=== PATIENT | male | born 1960 | race African-American/Black ===

== ENCOUNTER 2017-10-18 17:01 | Inpatient (IN) | payer OTHER ==
[~2017-10-18] VITALS: Ht 185.4 cm; Wt 89.4 kg
[2017-10-18 18:25] LABS: BASOPHILS % 0.4 % (0.0-1.0); EOSINOPHILS # (AUTO) 0.1 (0.0-0.4); EOSINOPHILS % 1.4 % (0.0-6.0); HEMATOCRIT 22.8 % (38.2-49.6); LYMPHOCYTES # (AUTO) 0.3 (1.0-3.2); LYMPHOCYTES % 3.4 % (18.0-39.1); MEAN CORPUSCULAR HEMOGLOBIN 27.5 pg (28-32); MEAN CORPUSCULAR HGB CONC 28.5 g/dL (31-35); MEAN CORPUSCULAR VOLUME 96.6 fL (81-99); MONOCYTES # (AUTO) 1.1 (0.2-0.8); MONOCYTES % 14.7 % (4.4-11.3); NEUTROPHILS # (AUTO) 5.8 (2.1-6.9); NEUTROPHILS % 79.8 % (38.7-80.0); PLATELET COUNT 228 x10e3/uL (140-360); RED BLOOD COUNT 2.36 x10e6/uL (4.3-5.7); RED CELL DISTRIBUTION WIDTH 16.8 % (11.7-14.4)
--- NOTE | 2017-10-18 18:32 | Diagnostic Imaging Report ---
EXAMINATION: CHEST SINGLE (PORTABLE) INDICATION: \S\ERMD ORDER \[id number] \S\[id number] \S\Y COMPARISON: None FINDINGS: AP view TUBES and LINES: Left-sided chest port with tip overlying the cavoatrial junction. LUNGS: Lungs are well inflated. Bilateral pulmonary edema. More confluent consolidation in the right upper lobe. PLEURA: Small right pleural effusion. No pneumothorax. HEART AND MEDIASTINUM: Moderate enlargement of the cardiac silhouette. Prominent right hilar. BONES AND SOFT TISSUES: No acute osseous lesion. Elevation of the right hemidiaphragm. UPPER ABDOMEN: No free air under the diaphragm. IMPRESSION: Bilateral pulmonary edema. More confluent right upper lobe consolidation may be due to more loculated alveolar edema versus superimposed pneumonia/mass. Prominent right hilar region due to lymphadenopathy. Recommend follow-up chest radiograph after treatment. If finding persists, then consider CT chest with IV contrast for further evaluation. Signed by: Dr. Josselyn Owens M.D. on 10/18/2017 6:29 PM
[2017-10-18 18:38] LABS: HEMOGLOBIN 6.5 g/dL (14.0-18.0)
[2017-10-18 18:50] LABS: INR 1.39
[2017-10-18 18:51] LABS: PARTIAL THROMBOPLASTIN TIME 38.8 seconds (23.8-35.5)
[2017-10-18 18:58] LABS: ALBUMIN 2.5 g/dL (3.5-5.0); ALBUMIN/GLOBULIN RATIO 0.6 (0.8-2.0); ANION GAP 17.7 mmol/L (8-16); CALCIUM 10.3 mg/dL (8.4-10.2); CREATININE, SERUM 4.07 mg/dL (0.72-1.25); POTASSIUM 3.7 mmol/L (3.5-5.1)
[2017-10-18] MEDS ORDERED: FUROSEMIDE INJ 10 MG/ML 4 ML VIAL IV ONE (19:45)
[2017-10-18 20:12] LABS: EOSINOPHILS % (MANUAL) 2 % (0-7); LYMPHOCYTES % (MANUAL) 4 % (19-48); MONOCYTES % (MANUAL) 9 % (3.4-9.0); NEUTROPHILS % (MANUAL) 85 % (40-74)
[2017-10-18 20:15] LABS: HYPOCHROMASIA MODERATE
[2017-10-18 20:16] LABS: POIKILOCYTOSIS SLIGHT
[2017-10-18 20:17] LABS: PLATELET ESTIMATE ADEQUATE; PLATELET MORPHOLOGY COMMENT FEW LARGE
[2017-10-18] MEDS ORDERED: FUROSEMIDE INJ 10 MG/ML 2 ML VIAL IV SCH (20:30)
[2017-10-18] MEDS ORDERED: SODIUM CHLORIDE 0.9% 250ML 250 ML IV ONE (20:30)
--- NOTE | 2017-10-18 21:13 | Diagnostic Imaging Report ---
EXAM: CT CHEST WO INDICATION: Shortness of breath COMPARISON: None TECHNIQUE: Multidetector CT scanning of the chest was performed. Coronal and sagittal multiplanar reformations were obtained. Dose modulation, iterative reconstruction, and/or weight based adjustment of the mA/kV was utilized to reduce the radiation dose to as low as reasonably achievable. Routine protocol performed. IV Contrast: None CTDIvol has been reviewed. It is below the limits set by the Radiation Protocol Committee (RPC). FINDINGS: LUNGS AND AIRWAYS: The trachea and major bronchi are unremarkable. Innumerable pulmonary nodules and masses throughout the bilateral lungs measuring up to 3 cm in the right upper lung. Additional superimposed consolidations predominantly in the right middle lobe and lung bases could represent superimposed pneumonia. Bilateral areas of irregular septal thickening most likely represents lymphangitic spread. PLEURA: Small amount of loculated fluid in the right middle and medial right upper lobe. HEART, MEDIASTINUM, VESSELS: Mild cardiac enlargement. Small pericardial effusion. No thoracic aortic aneurysm. Coronary artery calcifications. Bulky lymphadenopathy in the upper mediastinum, bilateral nova and subcarinal locations measuring up to 2.4 cm in short diameter. A left internal jugular central line terminates at the atriocaval junction. UPPER ABDOMEN: Extensive right diaphragmatic lymphadenopathy measuring up to 5 cm. MUSCULOSKELETAL: Large lytic lesion involving the manubrium associated with a 6.6 x 7.3 x 5.5 cm soft tissue mass. Additional lytic lesion associated with a soft tissue mass involving the anterior right first rib measuring up to 2.5 cm. Pathologic compression fracture with vertebral planum of T3. Multiple additional small lytic lesions throughout the thoracic spine. Partially visualized enlarged lytic lesion with soft tissue component of T11/T12 with partially visualized vertebroplasty changes at T12. Lytic lesions of the right scapula. IMPRESSION: Extensive metastatic disease, that would be consistent with provided history of renal cell carcinoma. Findings include: * Innumerable bilateral pulmonary nodules and masses. Irregular septal thickening bilaterally consistent with lymphangitic spread. Scattered ground glass opacities and small consolidations could represent metastatic disease or superimposed pneumonia. * Loculated, likely malignant, small effusion right middle lobe and medial aspect of the right upper lobe * Mediastinal, bilateral hilar and right diaphragmatic lymphadenopathy * Numerous lytic bone lesions throughout the ribs, spine and right scapula including some with large soft tissue components such as the manubrium and T11/T12. Pathologic fracture/vertebral clot at T3. Signed by: Dr. Sonya Byrne M.D. on 10/18/2017 9:10 PM
[2017-10-18] MEDS: ONDANSETRON HCL INJ 2 MG/ML VIAL IV PRN (23:12)
[2017-10-18] MEDS: MORPHINE SULFATE 2 MG/ML SYR IV PRN (23:12)
[2017-10-19] VITALS (11 sets, daily range): BP systolic 109–144; BP diastolic 56–94
[2017-10-19] MEDS ORDERED: ASPIR 8181 MG PO (01:26)
[2017-10-19] MEDS ORDERED: LACTULOSE20 GM/30 M PO (01:26)
[2017-10-19] MEDS ORDERED: RENVELA0.8 GM PO (01:26)
[2017-10-19] MEDS ORDERED: PANTOPRAZOLE SO40 MG PO (01:26)
[2017-10-19] MEDS ORDERED: SENSIPAR30 MG PO (01:26)
[2017-10-19] MEDS ORDERED: DIPHENHYDRAMINE25 M1 PO (01:26)
[2017-10-19] MEDS ORDERED: METOPROLOL TART50 MG PO (01:26)
[2017-10-19] MEDS ORDERED: ACETAMINOPHEN325 M1 PO (01:26)
[2017-10-19] MEDS ORDERED: COREG3.125 MG PO (01:26)
[2017-10-19] MEDS ORDERED: NORCO 7.5-3251 EACH PO (01:26)
[2017-10-19] MEDS ORDERED: CYMBALTA30 MG PO (01:26)
[2017-10-19] MEDS ORDERED: CLONIDINE HCL0.1 MG PO (01:26)
[2017-10-19] MEDS ORDERED: VOTRIENT200 MG PO (01:26)
[2017-10-19] MEDS ORDERED: IPRAT-ALBUT 0.5-3 ML INH (01:26)
[2017-10-19] MEDS ORDERED: PROAIR HFA INH8.5 GM INH (01:26)
[2017-10-19] MEDS ORDERED: ZOFRAN ODT4 MG PO (01:26)
[2017-10-19] MEDS ORDERED: SENNA LAX8.6 MG PO (01:26)
[2017-10-19] MEDS ORDERED: HYDRALAZINE HCL25 MG PO (01:26)
[2017-10-19] MEDS: MORPHINE SULFATE 2 MG/ML SYR IV PRN ×3 (03:40→21:18)
[2017-10-19] MEDS: ONDANSETRON HCL INJ 2 MG/ML VIAL IV PRN (03:40)
[2017-10-19 07:10] LABS: ANION GAP 15.8 mmol/L (8-16); CALCIUM 10.6 mg/dL (8.4-10.2); CREATININE, SERUM 4.61 mg/dL (0.72-1.25); MAGNESIUM 1.8 MG/DL (1.3-2.1); POTASSIUM 3.8 mmol/L (3.5-5.1)
[2017-10-19 07:30] LABS: BASOPHILS % 0.4 % (0.0-1.0); EOSINOPHILS # (AUTO) 0.1 (0.0-0.4); EOSINOPHILS % 1.8 % (0.0-6.0); HEMATOCRIT 25.4 % (38.2-49.6); HEMOGLOBIN 7.1 g/dL (14.0-18.0); LYMPHOCYTES # (AUTO) 0.3 (1.0-3.2); LYMPHOCYTES % 4.3 % (18.0-39.1); MEAN CORPUSCULAR HEMOGLOBIN 27.4 pg (28-32); MEAN CORPUSCULAR VOLUME 98.1 fL (81-99); MONOCYTES # (AUTO) 1.5 (0.2-0.8); MONOCYTES % 20.1 % (4.4-11.3); NEUTROPHILS # (AUTO) 5.3 (2.1-6.9); PLATELET COUNT 236 x10e3/uL (140-360); RED BLOOD COUNT 2.59 x10e6/uL (4.3-5.7); RED CELL DISTRIBUTION WIDTH 16.8 % (11.7-14.4)
[2017-10-19] MEDS ORDERED: ACETAMINOPHEN 325 MG TAB PO PRN (10:00)
[2017-10-19] MEDS ORDERED: CLONIDINE HCL 0.1 MG TAB PO PRN (10:00)
[2017-10-19 10:01] LABS: LYMPHOCYTES % (MANUAL) 2 % (19-48); MONOCYTES % (MANUAL) 23 % (3.4-9.0); NEUTROPHILS % (MANUAL) 75 % (40-74)
[2017-10-19 10:02] LABS: PLATELET ESTIMATE ADEQUATE; PLATELET MORPHOLOGY COMMENT NORMAL; RBC MORPHOLOGY COMMENT NORMAL
[2017-10-19] MEDS: FUROSEMIDE INJ 10 MG/ML 4 ML VIAL IV SCH ×2 (10:15→16:33)
[2017-10-19] MEDS: ALBUTEROL/IPRATROPIUM 3 ML NEB INH SCH ×2 (11:00→19:50)
[2017-10-19] MEDS ORDERED: SODIUM CHLORIDE 0.9% 1000ML 1,000 ML ONE (11:01)
[2017-10-19] MEDS: SEVELAMER CARBONATE 800 MG TAB PO SCH ×2 (12:00→16:33)
[2017-10-19] MEDS: DIPHENHYDRAMINE HCL 25 MG CAP PO PRN (12:45)
[2017-10-19] MEDS ORDERED: FAMOTIDINE 20 MG TAB PO SCH (16:30)
[2017-10-19 16:33] LABS: ABG HCO3 31 mmol/L (23-28); ABG PCO2 61 mmHg (41-51); ABG PH 7.32 (7.31-7.41); ABG PO2 88 mmHg (80-105)
[2017-10-19] MEDS: LACTULOSE SYRUP 20 GM/30 ML UDC PO SCH (16:33)
[2017-10-19] MEDS ORDERED: HYDRALAZINE HCL 25 MG TAB PO SCH (17:00)
--- NOTE | 2017-10-19 17:55 | Consultation ---
DATE OF CONSULTATION: October 19, 2017 PULMONARY CONSULTATION A patient of Dr. Reddy. An unfortunate 57-year-old gentleman admitted with chest pressure and shortness of breath. History of sleep apnea, history of metastatic renal cell carcinoma on . History of hypertension, hyperparathyroidism, gastroesophageal reflux, end-stage renal disease, COPD, congestive heart failure. Has done dialysis for over 20 years related to his malignant hypertension. According to the record, there is a history of cocaine use and opiate dependence. Hospice apparently has been discussed with the patient and to date is declined. He is a retired . Smoker. Alcohol in the past. PHYSICAL EXAMINATION GENERAL: A well-developed black male looking somewhat older than his . He appears chronically ill, on dialysis. He is sleepy. VITAL SIGNS: Temperature 98.2, pulse 89, blood pressure 132/81. LUNGS: Bilateral rhonchi. HEART: Regular rhythm. ABDOMEN: Nontender. EXTREMITIES: Nonedematous. AV fistula left arm. He is currently undergoing dialysis. PLAN: Resume CPAP which he says is at 5 at home. Continue therapy of carcinoma of the kidney with widespread metastasis to lung and bone. Prognosis appears grave. Hyperkalemia of second . Will defer therapy to the renal service. Check ionized . Thank you for this kind referral. Job#: [id number] EV
[2017-10-19 18:31] LABS: CREATINE KINASE MB 2.4 ng/mL (0-5.0)
--- NOTE | 2017-10-19 19:53 | Consultation ---
DATE OF CONSULTATION: October 19, 2017 NEPHROLOGY CONSULTATION PRIMARY REFERRING PHYSICIAN: Dr. Reddy. HISTORY OF PRESENT ILLNESS: The patient is a 57-year-old man who has a history of end-stage renal disease, hypertension, renal cell carcinoma and metastasis, as well as diabetes and diastolic heart failure. He presents for further evaluation of weakness. I am asked to provide dialysis support and manage ESRD issues. The patient is seen at this facility with ongoing hemodialysis. I reviewed the assessment and plan with the patient and the dialysis nursing staff. The patient receives dialysis on a Friday/Friday/Friday schedule with his last treatment being Friday, 48 hours ago. On admission he was noted to be anemic, requiring a blood transfusion with labs as noted below. He is hemodynamically stable, awake, alert, tired-appearing and in no distress presently. REVIEW OF SYSTEMS: Notable for dyspnea, weakness. He denies headaches, angina, palpitations, epistaxis, hemoptysis, cough, abdominal pain, flank pain, worsened lower extremity edema, diarrhea, melanic stools, bright red blood per rectum, gross hematuria. ALLERGIES: CODEINE AND TRAMADOL. LABS AT THIS TIME: Sodium 136, potassium 3.8, bicarb 27, BUN 33, creatinine 4.6, glucose 81, calcium 10.6, magnesium 1.8. B-type natriuretic peptide 765. White count on October 18, 2017, was 7.2. Initial hemoglobin 6.5, repeat 7.1. Platelets 288. CHEST X-RAY: On October 18, 2017, reveals bilateral pulmonary edema. More confluent right upper lobe consolidation. Prominent right hilar region due to lymphadenopathy. This is by formal report. CHEST COMPUTED TOMOGRAPHY: On October 18, 2017, without contrast reveals extensive metastatic disease consistent with provided history of renal cell carcinoma. Innumerable bilateral pulmonary nodules and masses. Irregular septal thickening consistent with lymphangitic spread. This is likely malignant small effusion right middle lobe and medial aspect of right upper lobe. Mediastinal bilateral hilar and right diaphragmatic lymphadenopathy. Numerous lytic bone lesions throughout the ribs, spine and right scapula. Pathologic fracture vertebral at T3. This is by formal report. PAST MEDICAL HISTORY: COPD, diabetes, diastolic heart failure, ESRD, lumbar compression fractures, neuropathy, obesity, obstructive sleep apnea. Renal cell carcinoma, metastatic. PAST SURGICAL HISTORY: Left AV shunt, nephrectomy, total knee arthroplasty, vertebroplasty lumbar spine. SOCIAL HISTORY: Single. No tobacco. Positive for cocaine noted. Alcohol noted and marijuana use as by EMR review. PHYSICAL EXAMINATION GENERAL: Patient is awake, tired-appearing. VITAL SIGNS: Afebrile 97.1, blood pressure 125/61. HEAD AND NECK: Atraumatic, normocephalic. Anicteric sclera. Moist oral mucosa. No skin or mucosal lesions. Neck is supple. No JVP appreciated. LUNGS: Reveal decreased breath sounds, no overt wheezes. CARDIAC: Regular rate. No S3. No rubs. ABDOMEN: Soft, nontender, nondistended. No guarding or rebound. EXTREMITIES: Left upper extremity positive AV access in use at this time. Lower extremities without overt edema, lesions. ASSESSMENT 1. End-stage renal disease. 2. Increased, expanded volume status. 3. Anemia. 4. Hemodynamically stable. PLAN 1. Dialysis today for metabolic clearance and volume control. Prescription is reviewed with the nursing staff as follows: F170 for 3 hours, sodium 140, potassium 3.0, bicarb 35, calcium 2.0. Ultrafiltration 3 liters as tolerated. 2. No heparin. No waste of prime. Blood flow 400 mL per minute. Dialysate flow rate 600 to 700 mL per minute. IV saline and Mannitol p.r.n. systolic less than 105 mmHg. 3. Transfuse packed RBC with ongoing hemodialysis as scheduled. 4. Serial renal indices. 5. Protect left arm. 6. Dose meds with creatinine clearance less than 10 to 12 mL per minute. 7. Plan dialysis tomorrow on October 20, 2017, for Friday/Friday/Friday schedule. 8. Renal diet with 1.2 liter fluid restriction. Will make other recommendations as per his clinical course and data. Job#: [id number] EV
[2017-10-19] MEDS ORDERED: CARVEDILOL 3.125 MG TAB PO SCH (21:00)
[2017-10-20] MEDS: ALBUTEROL/IPRATROPIUM 3 ML NEB INH SCH ×4 (00:40→19:10)
[2017-10-20 05:08] LABS: BASOPHILS % 0.3 % (0.0-1.0); EOSINOPHILS # (AUTO) 0.1 (0.0-0.4); EOSINOPHILS % 1.4 % (0.0-6.0); HEMATOCRIT 27.4 % (38.2-49.6); HEMOGLOBIN 7.9 g/dL (14.0-18.0); LYMPHOCYTES # (AUTO) 0.2 (1.0-3.2); LYMPHOCYTES % 3.1 % (18.0-39.1); MEAN CORPUSCULAR HEMOGLOBIN 27.6 pg (28-32); MEAN CORPUSCULAR HGB CONC 28.8 g/dL (31-35); MEAN CORPUSCULAR VOLUME 95.8 fL (81-99); MONOCYTES # (AUTO) 1.2 (0.2-0.8); MONOCYTES % 15.7 % (4.4-11.3); NEUTROPHILS # (AUTO) 5.8 (2.1-6.9); NEUTROPHILS % 79.1 % (38.7-80.0); PLATELET COUNT 275 x10e3/uL (140-360); RED BLOOD COUNT 2.86 x10e6/uL (4.3-5.7); RED CELL DISTRIBUTION WIDTH 16.7 % (11.7-14.4)
[2017-10-20 05:33] LABS: ANION GAP 17.1 mmol/L (8-16); CALCIUM 10.4 mg/dL (8.4-10.2); CREATININE, SERUM 4.09 mg/dL (0.72-1.25); MAGNESIUM 1.7 MG/DL (1.3-2.1); POTASSIUM 4.1 mmol/L (3.5-5.1)
[2017-10-20 06:05] LABS: % IRON SATURATION 11 % (15-50); IRON 16 ug/dL (65-175); TOTAL IRON BINDING CAPACITY 147 ug/dL (261-478); TRANSFERRIN 105 mg/dL (174-364)
[2017-10-20 06:17] LABS: FERRITIN > 2000.00 ng/mL (21.81-274.66)
[2017-10-20 06:30] LABS: FOLATE 12.9 ng/mL (7.0-15.4)
[2017-10-20 07:15] VITALS: BP 149/73
[2017-10-20] MEDS: MORPHINE SULFATE 2 MG/ML SYR IV PRN (07:45)
[2017-10-20] MEDS: PANTOPRAZOLE SOD 40 MG TABEC PO SCH (07:48)
[2017-10-20] MEDS: SEVELAMER CARBONATE 800 MG TAB PO SCH ×3 (08:13→17:26)
[2017-10-20 08:16] VITALS: BP 149/73
[2017-10-20] MEDS ORDERED: METHYLPREDNISOLONE SOD SUCC 40 MG/ML VIAL IV SCH (09:00)
[2017-10-20] MEDS: SENNOSIDES 8.6 MG TAB PO SCH (09:00)
[2017-10-20] MEDS: DULOXETINE HCL 30 MG DELAYED RELEASE PO SCH (09:00)
[2017-10-20] MEDS: LACTULOSE SYRUP 20 GM/30 ML UDC PO SCH ×2 (09:00→17:00)
[2017-10-20] MEDS: METOPROLOL TARTRATE 50 MG TAB PO SCH (09:00)
[2017-10-20] MEDS: FUROSEMIDE INJ 10 MG/ML 4 ML VIAL IV SCH ×2 (09:01→17:26)
[2017-10-20 12:14] VITALS: BP 126/68
[2017-10-20] MEDS: EPOETIN ALFA 10000 UNIT/ML VIAL SC SCH (15:57)
[2017-10-20] MEDS: CINACALCET 30 MG TAB PO SCH (15:57)
[2017-10-20] MEDS: ASPIRIN 81 MG CHEW TAB PO SCH (15:57)
[2017-10-20 16:01] VITALS: BP 123/62
[2017-10-20] MEDS ORDERED: CEFTRIAXONE SOD 1 GM VIAL IM ONE (17:00)
[2017-10-20] MEDS: MORPHINE SULFATE INJ 4 MG/ML INJ IV PRN (17:20)
[2017-10-20] MEDS: DOXYCYCLINE HYCLATE TABLET 100 MG TAB PO SCH (17:26)
[2017-10-20 19:45] VITALS: BP 139/87
[2017-10-20 20:00] VITALS: BP 139/87
[2017-10-20] MEDS: HYDROCODONE/APAP 7.5MG-325MG 1 EA TAB PO PRN (20:37)
[2017-10-20] MEDS: METHYLPREDNISOLONE SOD SUCC 40 MG/ML VIAL IV SCH (20:37)
[2017-10-21] VITALS (8 sets, daily range): BP systolic 123–150; BP diastolic 65–77
[2017-10-21] MEDS: MORPHINE SULFATE INJ 4 MG/ML INJ IV PRN ×5 (00:05→22:03)
[2017-10-21] MEDS: ALBUTEROL/IPRATROPIUM 3 ML NEB INH SCH ×4 (01:40→18:45)
[2017-10-21] MEDS: HYDROCODONE/APAP 7.5MG-325MG 1 EA TAB PO PRN (03:15)
[2017-10-21] MEDS: DIPHENHYDRAMINE HCL 25 MG CAP PO PRN (03:22)
[2017-10-21 04:08] LABS: BASOPHILS % 0.1 % (0.0-1.0); EOSINOPHILS % 0.1 % (0.0-6.0); HEMATOCRIT 25.8 % (38.2-49.6); HEMOGLOBIN 7.5 g/dL (14.0-18.0); LYMPHOCYTES # (AUTO) 0.2 (1.0-3.2); LYMPHOCYTES % 2.1 % (18.0-39.1); MEAN CORPUSCULAR HEMOGLOBIN 27.7 pg (28-32); MEAN CORPUSCULAR HGB CONC 29.1 g/dL (31-35); MEAN CORPUSCULAR VOLUME 95.2 fL (81-99); MONOCYTES # (AUTO) 0.7 (0.2-0.8); MONOCYTES % 8.4 % (4.4-11.3); NEUTROPHILS # (AUTO) 7.1 (2.1-6.9); NEUTROPHILS % 88.8 % (38.7-80.0); PLATELET COUNT 228 x10e3/uL (140-360); RED BLOOD COUNT 2.71 x10e6/uL (4.3-5.7); RED CELL DISTRIBUTION WIDTH 16.5 % (11.7-14.4)
[2017-10-21 04:26] LABS: ANION GAP 16.2 mmol/L (8-16); CALCIUM 9.9 mg/dL (8.4-10.2); CREATININE, SERUM 4.06 mg/dL (0.72-1.25); POTASSIUM 4.2 mmol/L (3.5-5.1)
[2017-10-21 04:46] LABS: MAGNESIUM 1.9 MG/DL (1.3-2.1)
[2017-10-21] MEDS: DOXYCYCLINE HYCLATE TABLET 100 MG TAB PO SCH ×3 (05:41→21:58)
[2017-10-21] MEDS: PANTOPRAZOLE SOD 40 MG TABEC PO SCH (07:30)
[2017-10-21] MEDS: ONDANSETRON HCL INJ 2 MG/ML VIAL IV PRN ×2 (08:12→22:27)
[2017-10-21] MEDS: FUROSEMIDE INJ 10 MG/ML 4 ML VIAL IV SCH ×2 (08:12→17:01)
[2017-10-21] MEDS: METHYLPREDNISOLONE SOD SUCC 40 MG/ML VIAL IV SCH (08:12)
[2017-10-21] MEDS: METOPROLOL TARTRATE 50 MG TAB PO SCH (09:00)
[2017-10-21] MEDS: SENNOSIDES 8.6 MG TAB PO SCH (09:00)
[2017-10-21] MEDS: DULOXETINE HCL 30 MG DELAYED RELEASE PO SCH (09:00)
[2017-10-21] MEDS: ASPIRIN 81 MG CHEW TAB PO SCH (09:00)
[2017-10-21] MEDS: LACTULOSE SYRUP 20 GM/30 ML UDC PO SCH ×2 (09:00→17:00)
[2017-10-21] MEDS: SEVELAMER CARBONATE 800 MG TAB PO SCH ×3 (09:58→17:39)
[2017-10-21] MEDS: CINACALCET 30 MG TAB PO SCH (09:59)
[2017-10-21] MEDS ORDERED: BISACODYL 10 MG SUPP PR NR (10:30)
[2017-10-21] MEDS ORDERED: DOCUSATE SODIUM 100 MG CAP PO SCH (11:00)
[2017-10-21] MEDS: GUAIFENESIN 600 MG TAB PO SCH ×2 (12:00→17:39)
[2017-10-21] MEDS: DOCUSATE SODIUM 100 MG CAP PO SCH (17:01)
[2017-10-21] MEDS: DICLOFENAC SOD 1% GEL 100 GM TUBE TP SCH ×2 (17:49→21:58)
[2017-10-22] VITALS (7 sets, daily range): BP systolic 109–151; BP diastolic 56–78
[2017-10-22] MEDS: ALBUTEROL/IPRATROPIUM 3 ML NEB INH SCH ×4 (00:35→18:55)
[2017-10-22] MEDS: MORPHINE SULFATE INJ 4 MG/ML INJ IV PRN ×4 (04:35→21:24)
[2017-10-22 05:14] LABS: BASOPHILS % 0.4 % (0.0-1.0); EOSINOPHILS # (AUTO) 0.1 (0.0-0.4); EOSINOPHILS % 0.9 % (0.0-6.0); HEMATOCRIT 27.2 % (38.2-49.6); HEMOGLOBIN 7.8 g/dL (14.0-18.0); LYMPHOCYTES # (AUTO) 0.3 (1.0-3.2); LYMPHOCYTES % 3.6 % (18.0-39.1); MEAN CORPUSCULAR HEMOGLOBIN 27.7 pg (28-32); MEAN CORPUSCULAR HGB CONC 28.7 g/dL (31-35); MEAN CORPUSCULAR VOLUME 96.5 fL (81-99); MONOCYTES # (AUTO) 1.3 (0.2-0.8); MONOCYTES % 15.7 % (4.4-11.3); NEUTROPHILS # (AUTO) 6.4 (2.1-6.9); NEUTROPHILS % 78.9 % (38.7-80.0); PLATELET COUNT 266 x10e3/uL (140-360); RED BLOOD COUNT 2.82 x10e6/uL (4.3-5.7)
[2017-10-22 05:34] LABS: CALCIUM 10.2 mg/dL (8.4-10.2); CREATININE, SERUM 5.09 mg/dL (0.72-1.25); MAGNESIUM 1.6 MG/DL (1.3-2.1)
[2017-10-22] MEDS: GUAIFENESIN 600 MG TAB PO SCH ×4 (06:00→18:00)
[2017-10-22 07:34] LABS: ANISOCYTOSIS SLIGHT; HYPOCHROMASIA SLIGHT; PLATELET ESTIMATE ADEQUATE; PLATELET MORPHOLOGY COMMENT NORMAL; RBC MORPHOLOGY COMMENT NORMAL
--- NOTE | 2017-10-22 08:35 | Diagnostic Imaging Report ---
PROCEDURE: CHEST SINGLE (PORTABLE) COMPARISON: Chest radiograph 10/18/2017, CT chest 10/18/2017. INDICATIONS: FLUID OVERLOAD FINDINGS: Left chest port is unchanged in position. Marginal interval improvement in aeration of the lungs . Multiple bilateral nodular opacities compatible with metastases, unchanged. Enlargement of the cardiac silhouette shown to represent extensive mediastinal metastatic disease, unchanged. Numerous bony lesions are poorly appreciated on plain radiography. CONCLUSION: Aeration of the lungs is slightly improved relative to 10/18/2017 . Extensive intrathoracic metastases seen to better advantage on 10/18/2017 CT chest Dictated by: Noe Oreilly M.D. on 10/22/2017 at 8:42 Electronically approved by: Noe Oreilly M.D. on 10/22/2017 at 8:42
[2017-10-22] MEDS: PANTOPRAZOLE SOD 40 MG TABEC PO SCH (08:40)
[2017-10-22] MEDS: LACTULOSE SYRUP 20 GM/30 ML UDC PO SCH ×2 (09:00→17:00)
[2017-10-22] MEDS: DULOXETINE HCL 30 MG DELAYED RELEASE PO SCH (09:00)
[2017-10-22] MEDS: METOPROLOL TARTRATE 50 MG TAB PO SCH (09:00)
--- NOTE | 2017-10-22 09:30 | Diagnostic Imaging Report ---
PROCEDURE: X-RAY CHEST, TWO VIEWS COMPARISON: The CT chest without contrast 10/18/2017. INDICATIONS: copd, stage 4 lung cancer FINDINGS: Images are only now submitted for interpretation at 0930 hours on 10/22/2017. Left chest port catheter tip projects over the expected region of the superior cavoatrial junction. Innumerable bilateral nodular opacities most notably in the superhilar region of the right lung shown to represent metastatic disease on comparison CT chest. Prominence of the central pulmonary interstitium. Enlarged cardiomediastinal contour due to extensive mediastinal metastatic disease is seen to better advantage on comparison CT. No large pleural effusion or pneumothorax. Osseous metastases are seen to better advantage on comparison CT. CONCLUSION: Diffuse intrathoracic metastases with superimposed pulmonary edema. Dictated by: Noe Oreilly M.D. on 10/22/2017 at 9:37 Electronically approved by: Noe Oreilly M.D. on 10/22/2017 at 9:37
[2017-10-22] MEDS: DICLOFENAC SOD 1% GEL 100 GM TUBE TP SCH ×4 (09:35→21:30)
[2017-10-22] MEDS: DOXYCYCLINE HYCLATE TABLET 100 MG TAB PO SCH ×2 (09:35→21:30)
[2017-10-22] MEDS: CINACALCET 30 MG TAB PO SCH (09:35)
[2017-10-22] MEDS: FUROSEMIDE INJ 10 MG/ML 4 ML VIAL IV SCH ×2 (09:37→17:00)
[2017-10-22] MEDS: ASPIRIN 81 MG CHEW TAB PO SCH (09:37)
[2017-10-22] MEDS: SEVELAMER CARBONATE 800 MG TAB PO SCH ×3 (09:37→18:10)
[2017-10-22] MEDS: DOCUSATE SODIUM 100 MG CAP PO SCH ×2 (09:37→18:10)
[2017-10-22] MEDS ORDERED: ALBUMIN 25% 12.5GM 0.25 GM/ML BTL IV PRN (11:45)
[2017-10-22] MEDS ORDERED: MANNITOL 25% 12.5GM/50 ML VIAL IV PRN (11:45)
[2017-10-22] MEDS ORDERED: SODIUM CHLORIDE 0.9% 1000ML 2,000 ML IV PRN (11:45)
[2017-10-22] MEDS ORDERED: SODIUM CHLORIDE 0.9% 250ML 500 ML IV PRN (11:45)
[2017-10-22] MEDS: EPOETIN ALFA 10000 UNIT/ML VIAL SC SCH (15:00)
[2017-10-22] MEDS: HYDROCODONE/APAP 7.5MG-325MG 1 EA TAB PO PRN (18:05)
[2017-10-23] VITALS: BP 149/76
[2017-10-23] MEDS: MORPHINE SULFATE INJ 4 MG/ML INJ IV PRN ×3 (01:35→11:24)
[2017-10-23] MEDS: ALBUTEROL/IPRATROPIUM 3 ML NEB INH SCH ×2 (01:41→07:18)
[2017-10-23 03:22] LABS: BASOPHILS % 0.3 % (0.0-1.0); EOSINOPHILS # (AUTO) 0.1 (0.0-0.4); HEMATOCRIT 26.9 % (38.2-49.6); HEMOGLOBIN 7.7 g/dL (14.0-18.0); LYMPHOCYTES # (AUTO) 0.3 (1.0-3.2); LYMPHOCYTES % 4.1 % (18.0-39.1); MEAN CORPUSCULAR HEMOGLOBIN 27.5 pg (28-32); MEAN CORPUSCULAR HGB CONC 28.6 g/dL (31-35); MEAN CORPUSCULAR VOLUME 96.1 fL (81-99); MONOCYTES # (AUTO) 0.9 (0.2-0.8); MONOCYTES % 14.8 % (4.4-11.3); NEUTROPHILS % 78.3 % (38.7-80.0); PLATELET COUNT 255 x10e3/uL (140-360); RED CELL DISTRIBUTION WIDTH 15.9 % (11.7-14.4)
[2017-10-23 03:41] LABS: ANION GAP 13.1 mmol/L (8-16); CALCIUM 10.1 mg/dL (8.4-10.2); CREATININE, SERUM 4.14 mg/dL (0.72-1.25); MAGNESIUM 1.6 MG/DL (1.3-2.1); POTASSIUM 4.1 mmol/L (3.5-5.1)
[2017-10-23 04:00] VITALS: BP 126/75
[2017-10-23] MEDS: HYDROCODONE/APAP 7.5MG-325MG 1 EA TAB PO PRN ×2 (04:10→08:00)
[2017-10-23] MEDS: GUAIFENESIN 600 MG TAB PO SCH ×2 (06:00)
[2017-10-23] MEDS: PANTOPRAZOLE SOD 40 MG TABEC PO SCH (06:41)
[2017-10-23 08:00] VITALS: BP 141/77
[2017-10-23] MEDS: SEVELAMER CARBONATE 800 MG TAB PO SCH (08:00)
[2017-10-23] MEDS: FUROSEMIDE INJ 10 MG/ML 4 ML VIAL IV SCH (09:00)
[2017-10-23] MEDS: LACTULOSE SYRUP 20 GM/30 ML UDC PO SCH (09:00)
[2017-10-23] MEDS: DULOXETINE HCL 30 MG DELAYED RELEASE PO SCH (09:00)
[2017-10-23] MEDS: DICLOFENAC SOD 1% GEL 100 GM TUBE TP SCH (09:00)
[2017-10-23] MEDS: METOPROLOL TARTRATE 50 MG TAB PO SCH (09:00)
[2017-10-23] MEDS: DOCUSATE SODIUM 100 MG CAP PO SCH (10:01)
[2017-10-23] MEDS: ASPIRIN 81 MG CHEW TAB PO SCH (10:01)
[2017-10-23] MEDS: CINACALCET 30 MG TAB PO SCH (10:02)
[2017-10-23] MEDS: DOXYCYCLINE HYCLATE TABLET 100 MG TAB PO SCH (10:02)
--- NOTE | 2017-10-23 15:28 | Discharge Summary ---
ADMISSION DIAGNOSES 1. Fluid overload. 2. Anemia of chronic disease. 3. Hypertension. 4. Anxiety and depression. 5. Renal cell carcinoma. 6. End-stage renal disease. 7. Chronic obstructive pulmonary disease. 8. Congestive heart failure. 9. Chest pain. DISCHARGE DIAGNOSES 1. Fluid overload. 2. Anemia of chronic disease. 3. Hypertension. 4. Anxiety and depression. 5. Renal cell carcinoma. 6. End-stage renal disease. 7. Chronic obstructive pulmonary disease. 8. Congestive heart failure. 9. Chest pain. HISTORY: Patient has a history of renal cell carcinoma, hypertension, hyperparathyroidism, GERD, anxiety and depression, end-stage renal disease with dialysis on Friday, Friday and Friday, COPD, CHF, asthma, heart failure, diastolic, obstructive sleep apnea. Surgical history of left upper extremity AV placement, kyphoplasty, right foot surgery, and a TKA. HOSPITAL COURSE: A 57-year-old male complains of left chest pressure that does not radiate that began yesterday. He complains of chronic shortness of breath that also worsened yesterday. Pain is 8/10. No nausea, vomiting or sweating. HPI and history pulled from ER record since the patient refuses to wake up and speak during the assessment. The patient was started on IV Lasix b.i.d. Troponins negative times 2. EKG showed normal sinus rhythm. Dialysis per nephrology. The patient was given 2 PRBCs on admission. Chest x-ray on admission showed bilateral pulmonary edema, right upper lobe consolidation. CT of the chest showed extensive metastatic disease, enumerable bilateral pulmonary nodules and masses, loculated and likely malignant, small effusion of right middle lobe and medial aspect of the right upper lobe. Mediastinal bilateral hilar and right diaphragmatic lymphadenopathy. Numerous lytic bone lesions throughout the ribs, spine and right scapula. Pulmonary was consulted for CPAP. The patient was very agitated and refused to use it. Sputum culture showed gram-negative bacillus and Staph aureus. The patient had dialysis a few times prior to discharge. Chest x-ray prior to admission showed aeration of the lungs is slightly improved. Extensive intrathoracic metastases. The patient was started on doxycycline, Mucinex and Solu-Medrol once he developed a productive cough and congestion. The patient will [facility] back to [facility] with docusate b.i.d., doxycycline for 5 days and Mucinex p.r.n. He will resume home medications. Follow up with primary care in 1-2 weeks. The patient understands discharge instructions and agrees to plan. Vital signs stable. Patient afebrile. Consultants agreed to discharge. DICTATED BY XANDER CASEY NP DWAYNE GOMEZ MD Job#: [id number] MICKIE
[2017-10-24 20:31] VITALS: BP 122/58
--- OUTSIDE RECORDS SUMMARY | 2017-11-20 05:37 | XMS REPORT | Summary of Care ---
Demographics Address [address] [place] [address]- Preferred Language Canadian Marital Status Single Hindu Affiliation Jain Race Ethnic Group Non- Author Author [facility] Organization [facility] Address Unknown Phone Unavailable Encounter [facility]) [id number] Date(s): 03/13/15 - 03/14/15 [facility] [address] [place] [address]- Discharge Disposition: Home Attending Physician: Che Guerra MD Admitting Physician: Che Guerra MD Vital Signs 1 2 3 Most recent to oldest [Reference Range]: 185.42 cm (03/13/15 10:07 PM) 185.42 cm (03/13/15 1:27 PM) Height 98.0 DegF (03/14/15 7:57 AM) 98 DegF (03/13/15 10:06 PM) 98.7 DegF (03/13/15 1:27 PM) Temperature Oral [96.4-99.1 DegF] 163/77 mmHg *HI* (03/14/15 7:57 AM) 142/64 mmHg *HI* (03/14/15 4:59 AM) 123/78 mmHg (03/14/15 2:30 AM) Blood Pressure [90-140/60-90 mmHg] 20 BRMIN (03/14/15 7:57 AM) 23 BRMIN *HI* (03/14/15 4:59 AM) 26 BRMIN *HI* (03/13/15 11:22 PM) Respiratory Rate [14-20 BRMIN] 77 bpm (03/14/15 7:57 AM) 76 bpm (03/14/15 4:59 AM) 86 bpm (03/13/15 11:22 PM) Peripheral Pulse Rate [60-100 bpm] 154.545 kg (03/13/15 10:07 PM) 154.545 kg (03/13/15 1:27 PM) Weight 44.95 m2 (03/13/15 10:07 PM) 44.95 m2 (03/13/15 1:27 PM) Body Mass Index Problem List Condition Effective Dates Status Health Status Informant Apnea(Confirmed) Active DM (diabetes Active mellitus)(Confirmed) ESRD (end stage Active renal disease)(Confirmed) Hypertension(Confirm Active ed) Obesity(Confirmed) Active Allergies, Adverse Reactions, Alerts Substance Reaction Severity Status NKDA Active Medications acetaminophen 650 mg, 2 tab, Route: PO, Drug form: TAB, ONCE, Dosing Weight 154.545, kg, Priority: STAT, Start date: 03/13/15 13:46:00, Stop date: 03/13/15 13:46:00 Notes: Do not exceed 4 gm/day. (Same as: Tylenol) Start Date: 03/13/15 Stop Date: 03/13/15 Status: Completed acetaminophen 650 mg, 2 tab, Route: PO, Drug form: TAB, Q4H, Dosing Weight 154.545, kg, PRN Pain 1-3/Temp > 100.4 F, Start date: 03/13/15 19:37:00, Duration: 30 day, Stop date: 04/12/15 19:36:00 Notes: Do not exceed 4 gm/day. (Same as: Tylenol) Start Date: 03/13/15 Stop Date: 03/14/15 Status: Discontinued acetaminophen-hydrocodone 325 mg-10 mg oral tablet 1 tab, Route: PO, Drug Form: TAB, Q6H, PRN Pain Score 4-6, Start date: 03/14/15 2:21:00, Duration: 30 day, Stop date: 04/13/15 2:20:00 Notes: Do not exceed 4gm/day of acetaminophen. (Same as: [place] 325/10) Start Date: 03/14/15 Stop Date: 03/14/15 Status: Discontinued acetaminophen-hydrocodone 325 mg-10 mg oral tablet 1 tab, PO, PRN, 0 Refill(s) Start Date: 03/13/15 Stop Date: 03/14/15 Status: Discontinued albumin human 25% intravenous solution 12.5 gm, 50 mL, Route: IVPB, Drug form: INJ, PRN, Dosing Weight 154.545, kg, PRN Dialysis, Start date: 03/13/15 19:17:00, Duration: 30 day, Stop date: 19:16:00, (Give up to two doses prn each dialysis) Notes: LOT#: Mfg: WASTE: F/P - Red; E -Red (Same as: Albuminar)"blood product derivative" Start Date: 03/13/15 Stop Date: 03/14/15 Status: Discontinued albuterol 0.083% inhalation solution 15 mg, 18.07 mL, Route: NEB, Drug form: SOLN, ONCE, Dosing Weight 154.545, kg, Priority: STAT, Start date: 03/13/15 16:41:00, Stop date: 03/13/15 16:41:00 Notes: SEE RT DOCUMENTATION (Same as: Kendal) Start Date: 03/13/15 Stop Date: 03/13/15 Status: Completed amitriptyline 50 mg oral tablet 50 mg=1 tab, PO, Bedtime, # 30 tab, 0 Refill(s) Start Date: 03/14/15 Stop Date: 04/13/15 Status: Ordered amitriptyline 50 mg oral tablet 50 mg=1 tab, PO, Bedtime, # 30 tab, 0 Refill(s) Start Date: 03/13/15 Stop Date: 03/14/15 Status: Discontinued aspirin 81 mg tablet, enteric coated 81 mg, 1 tab, Route: PO, Drug form: ECTAB, Daily, Dosing Weight 154.545, kg, Start date: 03/14/15 9:00:00, Duration: 30 day, Stop date: 04/12/15 9:00:00 Notes: Do not crush or chew.(Same As: Ecotrin) Start Date: 03/14/15 Stop Date: 03/14/15 Status: Discontinued Aspirin Enteric Coated 325 mg oral delayed release tablet 325 mg=1 tab, PO, Daily, 0 Refill(s) Start Date: 03/13/15 Stop Date: 03/14/15 Status: Discontinued Aspirin Enteric Coated 325 mg oral delayed release tablet 325 mg=1 tab, PO, Daily, # 100 tab, 0 Refill(s) Start Date: 03/14/15 Status: Ordered cloNIDine 0.2 mg oral tablet 0.2 mg, 1 tab, Route: PO, Drug form: TAB, Q12H, Dosing Weight 154.545, kg, Start date: 03/13/15 21:00:00, Duration: 30 day, Stop date: 04/12/15 9:00:00 Notes: (Same As: Careyaprtamia) Start Date: 03/13/15 Stop Date: 03/14/15 Status: Discontinued cloNIDine 0.2 mg oral tablet 0.2 mg=1 tab, PO, BID, # 60 tab, 0 Refill(s) Start Date: 03/14/15 Stop Date: 04/13/15 Status: Ordered cloNIDine 0.2 mg oral tablet 0.2 mg=1 tab, PO, BID, # 60 tab, 0 Refill(s) Start Date: 03/13/15 Stop Date: 03/14/15 Status: Discontinued Dextrose 50% Syringe 25 gm, 50 mL, Route: IVP, Drug Form: INJ, Dosing Weight 154.545, kg, PRN, PRN Blood Glucose Results, Start date: 03/13/15 20:29:00, Duration: 30 day, Stop date: 04/12/15 20:28:00 Start Date: 03/13/15 Stop Date: 03/14/15 Status: Discontinued Dextrose 50% Syringe 12.5 gm, 25 mL, Route: IVP, Drug Form: INJ, Dosing Weight 154.545, kg, PRN, PRN Blood Glucose Results, Start date: 03/13/15 20:29:00, Duration: 30 day, Stop date: 04/12/15 20:28:00 Start Date: 03/13/15 Stop Date: 03/14/15 Status: Discontinued Dextrose 50% Syringe 25 gm, 50 mL, Route: IVP, Drug Form: INJ, Dosing Weight 154.545, kg, ONCE, STAT , Start date: 03/13/15 16:42:00, Stop date: 03/13/15 16:42:00 Start Date: 03/13/15 Stop Date: 03/13/15 Status: Completed Dextrose 50% Syringe 25 gm, 50 mL, Route: IVP, Drug Form: INJ, Dosing Weight 154.545, kg, ONCE, STAT , Start date: 03/13/15 16:42:00, Stop date: 03/13/15 16:42:00 Start Date: 03/13/15 Stop Date: 03/13/15 Status: Completed glucagon 1 mg, Route: IM, Drug form: PDR/INJ, PRN, Dosing Weight 154.545, kg, PRN Blood Glucose Results, Start date: 03/13/15 20:29:00, Duration: 30 day, Stop date: 20:28:00 Start Date: 03/13/15 Stop Date: 03/14/15 Status: Discontinued heparin 5,000 unit, 1 mL, Route: IV Lock, Drug form: INJ, PRN, Dosing Weight 154.545, kg , PRN Dialysis, Start date: 03/13/15 19:17:00, Duration: 30 day, Stop date: 19:16:00 Notes: porcine heparin Start Date: 03/13/15 Stop Date: 03/14/15 Status: Discontinued heparin 5,000 unit, 1 mL, Route: SUB-Q, Drug form: INJ, Q12H, Dosing Weight 154.545, kg , Start date: 03/13/15 21:00:00, Duration: 30 day, Stop date: 04/12/15 9:00:00 Notes: porcine heparin Start Date: 03/13/15 Stop Date: 03/14/15 Status: Discontinued hydrALAZINE 10 mg, 0.5 mL, Route: IVP, Drug form: INJ, ONCE, Dosing Weight 154.545, kg, Priority: STAT, Start date: 03/13/15 17:32:00, Stop date: 03/13/15 17:32:00 Notes: (Same as: Apresoline)Push over 5 minutes Start Date: 03/13/15 Stop Date: 03/13/15 Status: Completed hydrALAZINE 50 mg oral tablet 50 mg, 1 tab, Route: PO, Drug form: TAB, TID, Dosing Weight 154.545, kg, Start date: 03/13/15 21:00:00, Duration: 30 day, Stop date: 04/12/15 15:00:00 Notes: (Same as: Apresoline) May interfere w/enteral feedings Take With Food Start Date: 03/13/15 Stop Date: 03/14/15 Status: Discontinued hydrALAZINE 50 mg oral tablet 50 mg=1 tab, PO, TID, # 90 tab, 3 Refill(s) Start Date: 03/13/15 Stop Date: 03/14/15 Status: Discontinued hydrALAZINE 50 mg oral tablet 50 mg=1 tab, PO, TID, # 90 tab, 0 Refill(s) Start Date: 03/14/15 Stop Date: 04/13/15 Status: Ordered insulin aspart 4 unit, 0.04 mL, Route: SUB-Q, Drug form: SOLN, TID-Before Meals, Dosing Weight 154.545, kg, PRN Blood Glucose Results, Start date: 03/13/15 20:29:00, Duration : 30 day, Stop date: 04/12/15 20:28:00 Notes: Roll in palms of hands gently; Do not shake vigorously. (Same as: [facility]"single patient use only"WASTE: F/P - Black; E - Municipal Trash Bin Stable for 28 days at room temperature.Expires in days from Date Start Date: 03/13/15 Stop Date: 03/14/15 Status: Discontinued insulin aspart 3 unit, 0.03 mL, Route: SUB-Q, Drug form: SOLN, TID-Before Meals, Dosing Weight 154.545, kg, PRN Blood Glucose Results, Start date: 03/13/15 20:29:00, Duration : 30 day, Stop date: 04/12/15 20:28:00 Notes: Roll in palms of hands gently; Do not shake vigorously. (Same as: [facility]"single patient use only"WASTE: F/P - Black; E - Municipal Trash Bin Stable for 28 days at room temperature.Expires in days from Date Start Date: 03/13/15 Stop Date: 03/14/15 Status: Discontinued insulin aspart 5 unit, 0.05 mL, Route: SUB-Q, Drug form: SOLN, TID-Before Meals, Dosing Weight 154.545, kg, PRN Blood Glucose Results, Start date: 03/13/15 20:29:00, Duration : 30 day, Stop date: 04/12/15 20:28:00 Notes: Roll in palms of hands gently; Do not shake vigorously. (Same as: NovoLOG)"single patient use only"WASTE: F/P - Black; E - Municipal Trash Bin Stable for 28 days at room temperature.Expires in days from Date Start Date: 03/13/15 Stop Date: 03/14/15 Status: Discontinued insulin aspart 2 unit, 0.02 mL, Route: SUB-Q, Drug form: SOLN, TID-Before Meals, Dosing Weight 154.545, kg, PRN Blood Glucose Results, Start date: 03/13/15 20:29:00, Duration : 30 day, Stop date: 04/12/15 20:28:00 Notes: Roll in palms of hands gently; Do not shake vigorously. (Same as: NovoLOG)"single patient use only"WASTE: F/P - Black; E - Municipal Trash Bin Stable for 28 days at room temperature.Expires in days from Date Start Date: 03/13/15 Stop Date: 03/14/15 Status: Discontinued insulin aspart 1 unit, 0.01 mL, Route: SUB-Q, Drug form: SOLN, TID-Before Meals, Dosing Weight 154.545, kg, PRN Blood Glucose Results, Start date: 03/13/15 20:29:00, Duration : 30 day, Stop date: 04/12/15 20:28:00 Notes: Roll in palms of hands gently; Do not shake vigorously. (Same as: NovoLOG)"single patient use only"WASTE: F/P - Black; E - Municipal Trash Bin Stable for 28 days at room temperature.Expires in days from Date Start Date: 03/13/15 Stop Date: 03/14/15 Status: Discontinued Insulin regular 10 unit, 0.1 mL, Route: IVP, Drug form: SOLN, ONCE, Dosing Weight 154.545, kg, Priority: STAT, Start date: 03/13/15 16:42:00, Stop date: 03/13/15 16:42:00 Notes: (Same as: Humulin R) Roll in palms of hands gently; Do not shake vigorously. "single patient use only"(Restricted to patients requiring a dose > 60 units)WASTE: F/P - Black; E - Municipal Trash Bin Stable for 28 days at room temperatureExpires in days from Date Start Date: 03/13/15 Stop Date: 03/13/15 Status: Completed mannitol 12.5 gm, 50 mL, Route: IVPB, Drug form: INJ, PRN, Dosing Weight 154.545, kg, PRN Dialysis, Start date: 03/13/15 19:17:00, Duration: 2 doses or times, Stop date: Limited # of times Notes: (Same as: Osmitrol) Infuse through 5 micron or smaller filter WASTE: F/ P - Sink; E - Municipal Trash Bin Start Date: 03/13/15 Stop Date: 03/14/15 Status: Discontinued metoprolol 100 mg oral tablet, extended release 100 mg=1 tab, PO, Daily, # 30 tab, 0 Refill(s) Start Date: 03/14/15 Stop Date: 04/13/15 Status: Ordered metoprolol 5 mg/5 ml INJ 5 mg, 5 mL, Route: IVP, Drug form: INJ, ONCE, Dosing Weight 154.545, kg, Priority: STAT, Start date: 03/13/15 15:43:00, Stop date: 03/13/15 15:43:00 Notes: (Same as: Lopressor)Push over 2 minutes Start Date: 03/13/15 Stop Date: 03/13/15 Status: Completed Metoprolol Succinate ER 100 mg oral tablet, extended release 100 mg=1 tab, PO, Daily, # 30 tab, 0 Refill(s) Start Date: 03/13/15 Stop Date: 03/14/15 Status: Discontinued metoprolol tartrate 50 mg, 1 tab, Route: PO, Drug form: TAB, BID, Dosing Weight 154.545, kg, Start date: 03/14/15 9:00:00, Duration: 30 day, Stop date: 04/12/15 17:00:00 Notes: (Same as: Lopressor) Start Date: 03/14/15 Stop Date: 03/14/15 Status: Discontinued NIFEdipine 60 mg oral tablet, extended release 60 mg=1 tab, PO, Daily, # 90 tab, 1 Refill(s) Start Date: 03/13/15 Stop Date: 03/14/15 Status: Discontinued NIFEdipine 60 mg oral tablet, extended release 60 mg=1 tab, PO, Daily, # 30 tab, 0 Refill(s) Start Date: 03/14/15 Stop Date: 04/13/15 Status: Ordered ondansetron 4 mg, 2 mL, Route: IVP, Drug form: INJ, Q6H, Dosing Weight 154.545, kg, PRN Nausea & Vomiting, Start date: 03/13/15 19:37:00, Duration: 30 day, Stop date: 04/12/15 19:36:00 Notes: (Same as: Clarissa) MEDICATION WASTE Product Size: 4 mgProduct Wasted: ___ mg Start Date: 03/13/15 Stop Date: 03/14/15 Status: Discontinued Renagel 800 mg oral tablet 1,600 mg=2 tab, PO, TID, # 180 tab, 0 Refill(s) Start Date: 03/13/15 Stop Date: 03/14/15 Status: Discontinued Renagel 800 mg oral tablet 1,600 mg=2 tab, PO, TID, # 180 tab, 0 Refill(s) Start Date: 03/14/15 Stop Date: 04/13/15 Status: Ordered Saline Flush 0.9% 10 ml, Route: IVP, Drug Form: INJ, Dosing Weight 154.545, kg, PRN, PRN Line Flush, STAT, Start date: 03/13/15 13:46:00, Duration: 30 day, Stop date: 13:45:00 Notes: Same as: BD Posiflush Sterile Start Date: 03/13/15 Stop Date: 03/14/15 Status: Discontinued Sodium Chloride 0.9% (Bolus) IV 500 mL, 500 ml/hr, Infuse Over: 1 hr, Route: IV, 500, Drug form: INJ, PRN, Dosing Weight 154.545 kg, Start date: 03/13/15 19:17:00, Duration: 1 doses or times, Stop date: Limited # of times, PRN Dialysis Start Date: 03/13/15 Stop Date: 03/14/15 Status: Discontinued sodium chloride 0.9% (Priming and Maintenance) 2,000 mL, Route: IV, Drug form: INJ, PRN, Dosing Weight 154.545 kg, Start date: 03/13/15 19:17:00, Duration: 24 hr, Stop date: 03/14/15 19:16:00, For Use by Dialysis nurse ONLY, PRN Dialysis Start Date: 03/13/15 Stop Date: 03/14/15 Status: Discontinued tizanidine 4 mg oral tablet 4 mg=1 tab, PO, TID, 0 Refill(s) Start Date: 03/13/15 Stop Date: 03/14/15 Status: Discontinued tizanidine 4 mg oral tablet 4 mg=1 tab, PO, TID, # 90 tab, 0 Refill(s) Start Date: 03/14/15 Stop Date: 04/13/15 Status: Ordered Trandate 10 mg, 2 mL, Route: IV, Drug form: INJ, Q3H, PRN Elevated BP, Start date: 2:20:00, Duration: 30 day, Stop date: 04/13/15 2:19:00 Start Date: 03/14/15 Stop Date: 03/14/15 Status: Discontinued Results ELECTROLYTES Most recent to 1 2 oldest [Reference Range]: Sodium Lvl [135-145 137 mEq/L 133 mEq/L mEq/L] (03/14/15 1:55 AM) *LOW* (03/13/15 3:46 PM) Potassium Lvl 4.4 mEq/L 6.5 mEq/L 1 [3.5-5.1 mEq/L] (03/14/15 1:55 AM) *CRIT* (03/13/15 3:46 PM) Chloride Lvl [95-109 99 mEq/L 98 mEq/L mEq/L] (03/14/15 1:55 AM) (03/13/15 3:46 PM) CO2 [24-32 mEq/L] 30 mEq/L 25 mEq/L (03/14/15 1:55 AM) (03/13/15 3:46 PM) AGAP [10.0-20.0 12.4 mEq/L 16.5 mEq/L mEq/L] (03/14/15 1:55 AM) (03/13/15 3:46 PM) 1Result Comment: Critical Result(s) called to James De La Torre at 03/13/2015 16:26 by Samra Reyes. Read back OK. CHEM PANEL Most recent to 1 2 oldest [Reference Range]: Creatinine Lvl 8.84 mg/dL 10.90 mg/dL [0.50-1.40 mg/dL] *HI* *HI* (03/14/15 1:55 AM) (03/13/15 3:46 PM) eGFR 7 mL/min/1.73m2 1 5 mL/min/1.73m2 2 *NA* *NA* (03/14/15 1:55 AM) (03/13/15 3:46 PM) BUN [7-22 mg/dL] 42 mg/dL 55 mg/dL *HI* *HI* (03/14/15 1:55 AM) (03/13/15 3:46 PM) B/C Ratio [6-25] 5 5 *LOW* *LOW* (03/14/15 1:55 AM) (03/13/15 3:46 PM) Glucose Lvl [70-99 121 mg/dL 83 mg/dL mg/dL] *HI* (03/13/15 3:46 PM) (03/14/15 1:55 AM) Total Protein 6.9 g/dL 7.8 g/dL [6.4-8.4 g/dL] (03/14/15 1:55 AM) (03/13/15 3:46 PM) Albumin Lvl [3.5-5.0 3.2 g/dL 3.4 g/dL g/dL] *LOW* *LOW* (03/14/15 1:55 AM) (03/13/15 3:46 PM) Globulin [2.0-4.0 3.7 g/dL 4.4 g/dL g/dL] (03/14/15 1:55 AM) *HI* (03/13/15 3:46 PM) A/G Ratio [0.7-1.6] 0.9 0.8 (03/14/15 1:55 AM) (03/13/15 3:46 PM) Calcium Lvl 9.0 mg/dL 9.1 mg/dL [8.5-10.5 mg/dL] (03/14/15 1:55 AM) (03/13/15 3:46 PM) ALT [0-65 unit/L] 19 unit/L 22 unit/L (03/14/15 1:55 AM) (03/13/15 3:46 PM) AST [0-37 unit/L] 17 unit/L 30 unit/L (03/14/15 1:55 AM) (03/13/15 3:46 PM) Alk Phos [39-136 349 unit/L 373 unit/L unit/L] *HI* *HI* (03/14/15 1:55 AM) (03/13/15 3:46 PM) Bili Total [0.2-1.3 0.7 mg/dL 1.1 mg/dL mg/dL] (03/14/15 1:55 AM) (03/13/15 3:46 PM) 1Result Comment: The eGFR is calculated using the CKD-EPI formula. In most young , healthy individuals the eGFR will be >90 mL/min/1.73m2. The eGFR declines with age. An eGFR of 60-89 may be normal in some populations, particularly the elderly, for whom the CKD-EPI formula has not been extensively validated. Use of the eGFR is not recommended in the following populations: Individuals with unstable creatinine concentrations, including patients and those with serious co-morbid conditions. Patients with extremes in muscle mass or diet. The data above are obtained from the National Kidney Disease Education Program ( NKDEP) which additionally recommends that when the eGFR is used in patients with extremes of body mass index for purposes of drug dosing, the eGFR should be multiplied by the estimated BMI. 2Result Comment: The eGFR is calculated using the CKD-EPI formula. In most young , healthy individuals the eGFR will be >90 mL/min/1.73m2. The eGFR declines with age. An eGFR of 60-89 may be normal in some populations, particularly the elderly, for whom the CKD-EPI formula has not been extensively validated. Use of the eGFR is not recommended in the following populations: Individuals with unstable creatinine concentrations, including patients and those with serious co-morbid conditions. Patients with extremes in muscle mass or diet. The data above are obtained from the National Kidney Disease Education Program ( NKDEP) which additionally recommends that when the eGFR is used in patients with extremes of body mass index for purposes of drug dosing, the eGFR should be multiplied by the estimated BMI. CARDIAC ENZYMES Most recent to 1 2 oldest [Reference Range]: Total CK [12-191 185 unit/L unit/L] (03/13/15 3:46 PM) CK MB [0.5-3.6 2.4 ng/mL ng/mL] (03/13/15 3:46 PM) CK MB Index 1.3 [0.0-2.5] (03/13/15 3:46 PM) Troponin-I 0.06 ng/mL [0.00-0.40 ng/mL] (03/13/15 3:46 PM) IMMUNOLOGY Most recent to 1 2 oldest [Reference Range]: Hep Bs Ag [Negative] Negative *NA* (03/13/15 7:49 PM) Hep Bs Ab [<=7.4 47.0 mIU/mL mIU/mL] *HI* (03/13/15 7:49 PM) Hep B Core Ab Negative [Negative] *NA* (03/13/15 7:49 PM) Hep C Ab Negative *NA* (03/13/15 7:49 PM) HEMATOLOGY Most recent to 1 2 oldest [Reference Range]: WBC [3.7-10.4 K/CMM] 5.9 K/CMM 6.4 K/CMM (03/14/15 1:55 AM) (03/13/15 6:03 PM) RBC [4.70-6.10 4.07 M/CMM 4.18 M/CMM M/CMM] *LOW* *LOW* (03/14/15 1:55 AM) (03/13/15 6:03 PM) Hgb [14.0-18.0 g/dL] 12.3 g/dL 12.6 g/dL *LOW* *LOW* (03/14/15 1:55 AM) (03/13/15 6:03 PM) Hct [42.0-54.0 %] 38.2 % 38.8 % *LOW* *LOW* (03/14/15 1:55 AM) (03/13/15 6:03 PM) MCV [80.0-94.0 fL] 93.8 fL 92.9 fL (03/14/15 1:55 AM) (03/13/15 6:03 PM) MCH [27.0-31.0 pg] 30.4 pg 30.2 pg (03/14/15 1:55 AM) (03/13/15 6:03 PM) MCHC [32.0-36.0 32.4 g/dL 32.5 g/dL g/dL] (03/14/15 1:55 AM) (03/13/15 6:03 PM) RDW [11.5-14.5 %] 15.1 % 15.0 % *HI* *HI* (03/14/15 1:55 AM) (03/13/15 6:03 PM) Platelet [133-450 171 K/CMM 180 K/CMM K/CMM] (03/14/15 1:55 AM) (03/13/15 6:03 PM) MPV [7.4-10.4 fL] 8.5 fL 7.9 fL (03/14/15 1:55 AM) (03/13/15 6:03 PM) Segs [45.0-75.0 %] 72.3 % 63.9 % (03/14/15 1:55 AM) (03/13/15 6:03 PM) Lymphocytes 12.6 % 21.1 % [20.0-40.0 %] *LOW* (03/13/15 6:03 PM) (03/14/15 1:55 AM) Monocytes [2.0-12.0 13.3 % 12.6 % %] *HI* *HI* (03/14/15 1:55 AM) (03/13/15 6:03 PM) Eosinophils [0.0-4.0 1.3 % 1.8 % %] (03/14/15 1:55 AM) (03/13/15 6:03 PM) Basophils [0.0-1.0 0.5 % 0.6 % %] (03/14/15 1:55 AM) (03/13/15 6:03 PM) Segs-Bands # 4.2 K/CMM 4.1 K/CMM [1.5-8.1 K/CMM] (03/14/15 1:55 AM) (03/13/15 6:03 PM) Lymphocytes # 0.7 K/CMM 1.4 K/CMM [1.0-5.5 K/CMM] *LOW* (03/13/15 6:03 PM) (03/14/15 1:55 AM) Monocytes # [0.0-0.8 0.8 K/CMM 0.8 K/CMM K/CMM] (03/14/15 1:55 AM) (03/13/15 6:03 PM) Eosinophils # 0.1 K/CMM 0.1 K/CMM [0.0-0.5 K/CMM] (03/14/15 1:55 AM) (03/13/15 6:03 PM) Immunizations Vaccine Date Refusal Reason Hx pneumococcal vaccine 03/13/14 influenza virus vaccine, inactivated 10/18/14 Procedures Procedure Date Related Diagnosis Body Site Fracture care1 Kidney excision2 Knee replacement3 1Left ankle 2Left 3Left knee Social History Social History Type Response Substance Abuse Use: None. Exercise Exercise frequency: 1-2 times/week. Exercise type: Walking. Employment/School Status: Retired. Work/School description: Disabled, per pt.. Alcohol Past, Type Beer. Frequency: 1-2 times per week. Smoking Status Never smoker; Exposure to Tobacco Smoke None; Cigarette Smoking Last 365 Days No; Reg Smoking Cessation Counseling No Assessment and Plan No data available for this section
--- OUTSIDE RECORDS SUMMARY | 2017-11-20 05:37 | XMS REPORT | Summary of Care ---
Demographics Address [address] [place] [address]- Preferred Language Bengali Marital Status Single Latter-Day Affiliation Lutheran Race Ethnic Group Non- Author Author [facility] Organization [facility] Address Unknown Phone Unavailable Encounter PHILLIP Whittington([facility]) [id number] Date(s): 01/14/15 - 01/14/15 [facility] [address] [facility] provided by [facility] [place] [address]- Discharge Diagnosis: Acute pain due to trauma Discharge Disposition: Home Attending Physician: Shirley Blackmon MD Vital Signs Most recent to 1 2 oldest [Reference Range]: Height 185.42 cm (01/14/15 2:14 PM) Temperature Oral 98.0 DegF 97.9 DegF [96.4-99.1 DegF] (01/14/15 5:28 PM) (01/14/15 2:14 PM) Blood Pressure 150/111 mmHg 194/100 mmHg [90-140/60-90 mmHg] *HI* *HI* (01/14/15 5:28 PM) (01/14/15 2:14 PM) Respiratory Rate 18 BRMIN 18 BRMIN [14-20 BRMIN] (01/14/15 5:28 PM) (01/14/15 2:14 PM) Peripheral Pulse 75 bpm 73 bpm Rate [60-100 bpm] (01/14/15 5:28 PM) (01/14/15 2:14 PM) Weight 163.636 kg (01/14/15 2:14 PM) Body Mass Index 47.6 m2 (01/14/15 2:14 PM) Problem List Condition Effective Dates Status Health Status Informant Apnea(Confirmed) Resolved DM (diabetes Resolved mellitus)(Confirmed) ESRD (end stage Resolved renal disease)(Confirmed) Hypertension(Confirm Resolved ed) Obesity(Confirmed) Resolved Allergies, Adverse Reactions, Alerts Substance Reaction Severity Status codeine TRAMADOL Active NKDA Active traMADol Active Medications acetaminophen-hydrocodone 325 mg-5 mg oral tablet 1 tab, Route: PO, Drug Form: TAB, Dosing Weight 163.636, kg, ONCE, STAT, Start date: 01/14/15 14:50:00, Stop date: 01/14/15 14:50:00 Start Date: 01/14/15 Stop Date: 01/14/15 Status: Completed Results No data available for this section Immunizations No data available for this section Procedures No data available for this section Social History Social History Type Response Smoking Status Never smoker; Exposure to Tobacco Smoke None; Cigarette Smoking Last 365 Days No; Reg Smoking Cessation Counseling No Assessment and Plan No data available for this section
--- OUTSIDE RECORDS SUMMARY | 2017-11-20 05:37 | XMS REPORT | Summary of Care ---
Demographics Address [address] [place] [address]- Preferred Language Anguillan Marital Status Single Congregation Affiliation Quaker Race Ethnic Group Non- Author Author [facility] Organization [facility] Address Unknown Phone Unavailable Encounter PHILLIP Whittington(MIMI) [id number] Date(s): 03/22/15 - 03/22/15 [facility] [address] [employer] provided by [facility] [place] [address]- Discharge Diagnosis: Accidental fall Discharge Diagnosis: Avascular necrosis of talus Final: Unspecified injury of head, initial encounter Final: Unspecified injury of abdomen, initial encounter Final: Fall on same level, unspecified, initial encounter Final: Osteonecrosis, unspecified Final: Dependence on wheelchair Final: Chronic obstructive pulmonary disease, unspecified Final: Hypertensive chronic kidney disease with stage 5 chronic kidney disease or end stage renal disease Final: End stage renal disease Final: Type 2 diabetes mellitus without complications Discharge Disposition: Home Attending Physician: Jd Glass DO Vital Signs 1 2 3 Most recent to oldest [Reference Range]: 98.0 DegF (03/22/15 11:25 AM) 97.4 DegF (03/22/15 8:04 AM) Temperature Oral [96.4-99.1 DegF] 216/115 mmHg *HI* (03/22/15 11:25 AM) 185/114 mmHg *HI* (03/22/15 8:38 AM) 181/123 mmHg *HI* (03/22/15 8:04 AM) Blood Pressure [90-140/60-90 mmHg] 20 BRMIN (03/22/15 11:25 AM) 20 BRMIN (03/22/15 8:38 AM) 16 BRMIN (03/22/15 8:04 AM) Respiratory Rate [14-20 BRMIN] 83 bpm (03/22/15 8:04 AM) Peripheral Pulse Rate [60-100 bpm] Problem List Condition Effective Dates Status Health Status Informant Apnea(Confirmed) Active DM (diabetes Active mellitus)(Confirmed) ESRD (end stage Active renal disease)(Confirmed) Hypertension(Confirm Active ed) Obesity(Confirmed) Active Allergies, Adverse Reactions, Alerts Substance Reaction Severity Status NKDA Active Medications Tylenol 650 mg, 2 tab, Route: PO, Drug form: TAB, ONCE, Dosing Weight 154.545, kg, Priority: STAT, Start date: 03/22/15 11:25:00, Stop date: 03/22/15 11:25:00 Notes: Do not exceed 4 gm/day. (Same as: Tylenol) Start Date: 03/22/15 Stop Date: 03/22/15 Status: Ordered Results No data available for this section Immunizations Vaccine Date Refusal Reason Hx pneumococcal [...]
--- OUTSIDE RECORDS SUMMARY | 2017-11-20 05:37 | XMS REPORT | Summary of Care ---
Author Author [facility] Organization [facility] Address Unknown Phone Unavailable Encounter PHILLIP Whittington(MIMI) [id number] Date(s): 01/13/16 - 01/20/16 [facility] [address] [place] [address]- [phone] Final: Thrombosis of vascular prosthetic devices, implants and grafts, initial encounter Final: Thrombosis of vascular prosthetic devices, implants and grafts, initial encounter Discharge Disposition: Home or Self Care Attending Physician: Freda Dougherty MD Admitting Physician: Marcus Gallagher MD Vital Signs 1 2 3 Most recent to oldest [Reference Range]: 155 cm (01/19/16 6:50 PM) 155 cm (01/15/16 6:24 AM) 185.42 cm (01/13/16 4:00 AM) Height 141.006 kg (01/20/16 4:41 AM) Current Weight 99.2 DegF *HI* (01/19/16 7:05 AM) 98.5 DegF (01/19/16 1:38 AM) 98.3 DegF (01/18/16 8:10 PM) Temperature Oral [96.4-99.1 DegF] 165/83 mmHg *HI* (01/20/16 2:42 AM) 178/103 mmHg *HI* (01/19/16 7:05 AM) 149/78 mmHg *HI* (01/19/16 5:26 AM) Blood Pressure [90-140/60-90 mmHg] 20 BRMIN (01/20/16 2:42 AM) 17 BRMIN (01/20/16 12:00 AM) 15 BRMIN (01/19/16 11:00 PM) Respiratory Rate [14-20 BRMIN] 52 bpm *LOW* (01/20/16 2:42 AM) 67 bpm (01/19/16 7:05 AM) 66 bpm (01/19/16 5:26 AM) Peripheral Pulse Rate [60-100 bpm] 155.909 kg (01/16/16 5:43 AM) 154.545 kg (01/13/16 4:00 AM) Weight 44.95 m2 (01/13/16 4:00 AM) Body Mass Index Problem List Condition Effective Dates Status Health Status Informant Apnea(Confirmed) Active DM (diabetes Active mellitus)(Confirmed) ESRD (end stage Active renal disease)(Confirmed) Hypertension(Confirm Active ed) Obesity(Confirmed) Active Renal cell Resolved cancer(Confirmed) Allergies, Adverse Reactions, Alerts Substance Reaction Severity Status acetaminophen-codeine Active NKDA Active Medications albumin human 25% intravenous solution 12.5 gm, Route: IVPB, PRN, Dosing Weight 154.545, kg, PRN Dialysis, Start date: 01/13/16 8:49:00 [employer], Duration: 30 day, Stop date: 02/12/16 8:48:00 [employer], (Give up to two doses prn each dialysis) Start Date: 01/13/16 Stop Date: 01/13/16 Status: Deleted albumin human 25% intravenous solution 12.5 gm, 50 mL, Route: IVPB, Drug form: INJ, PRN, Dosing Weight 154.545, kg, PRN Dialysis, Start date: 01/13/16 8:12:00 [employer] ASSIST[employer], Duration: 30 day, Stop date: 8:11:00 [employer] ASSIST[employer], (Give up to two doses prn each dialysis) Notes: LOT#: Mfg: WASTE: F/P - Red; E -Red (Same as: Albuminar)"blood product derivative" Start Date: 01/13/16 Stop Date: 01/20/16 Status: Discontinued amitriptyline 50 mg, 2 tab, Route: PO, Drug form: TAB, Bedtime, Dosing Weight 154.545, kg, Start date: 01/13/16 21:00:00 [employer]IST[employer], Duration: 30 day, Stop date: 02/11/16 21:00: 00 [employer] ASSISTANT Notes: (Same as: Elavil) Start Date: 01/13/16 Stop Date: 01/20/16 Status: Discontinued Ativan 2 mg, 1 mL, Route: IVP, Drug form: INJ, ONCE, Start date: 01/19/16 20:15:00 [employer] ASSISTANT , Stop date: 01/19/16 20:15:00 [employer]PENTER[employer] ASSISTANT Notes: (Same as: Ativan) Start Date: 01/19/16 Stop Date: 01/20/16 Status: Completed ceFAZolin (ANES) Route: IV, Drug form: INJ, ONCE, Stop date: 01/19/16 17:51:00 [employer] ASSISTANT Start Date: 01/19/16 Stop Date: 01/19/16 Status: Completed cloNIDine 0.2 mg oral tablet 0.2 mg, 1 tab, Route: PO, Drug form: TAB, BID, Dosing Weight 154.545, kg, Priority: STAT, Start date: 01/13/16 9:38:00 [employer] ASSIST[employer], Duration: 30 day, Stop date: 02/12/16 9:00:00 [employer] ASSISTANT Notes: (Same As: Catapres) Start Date: 01/13/16 Stop Date: 01/20/16 Status: Discontinued Dextrose 50% Syringe 25 gm, 50 mL, Route: IVP, Drug Form: INJ, Dosing Weight 155.909, kg, ONCE, Start date: 01/19/16 19:47:00 [employer] ASSIST[employer], Stop date: 01/19/16 19:47:00 [employer] ASSIST[employer] Start Date: 01/19/16 Stop Date: 01/20/16 Status: Completed Dilaudid 1 mg, 0.5 mL, Route: IVP, Drug form: INJ, Q4H, PRN Pain Score 7-10, Start date: 01/13/16 22:00:00 [employer] ASSIST[employer], Duration: 30 day, Stop date: 02/12/16 21:59:00 [employer] ASSISTANT Notes: Same as Dilaudid Start Date: 01/13/16 Stop Date: 01/20/16 Status: Discontinued famotidine (ANES) Route: IV, Drug form: INJ, ONCE, Stop date: 01/19/16 17:56:00 [employer] ASSISTANT Start Date: 01/19/16 Stop Date: 01/19/16 Status: Completed fentaNYL (ANES) Route: IV, Drug form: INJ, ONCE, Stop date: 01/19/16 17:46:00 [employer] ASSISTANT Start Date: 01/19/16 Stop Date: 01/19/16 Status: Completed glycopyrrolate (ANES) Route: IV, Drug form: INJ, ONCE, Stop date: 01/19/16 17:46:00 [employer] ASSISTANT Start Date: 01/19/16 Stop Date: 01/19/16 Status: Completed Haldol 2.5 mg, 0.5 mL, Route: IV, Drug form: INJ, ONCE, Start date: 01/19/16 21:15:00 [employer] ASSISTANT, Stop date: 01/19/16 21:15:00 [employer]PENTER'S ASSISTANT Notes: (Same as: Haldol) Start Date: 01/19/16 Stop Date: 01/20/16 Status: Completed Haldol 2.5 mg, 0.5 mL, Route: IV, Drug form: INJ, Q4H, PRN Agitation, Start date: 01/18 22:27:00 [employer] ASSIST[employer], Duration: 30 day, Stop date: 02/18/16 22:26:00 [employer] ASSISTANT Notes: (Same as: Haldol) Start Date: 01/19/16 Stop Date: 01/20/16 Status: Discontinued heparin 10,000 unit, 2 mL, Route: IV Lock, Drug form: INJ, PRN, Dosing Weight 154.545, kg, PRN Dialysis, Start date: 01/13/16 8:49:00 [employer], Duration: 30 day, Stop date : 02/12/16 8:48:00 [employer] ASSISTANT Notes: porcine heparin Start Date: 01/13/16 Stop Date: 01/20/16 Status: Discontinued heparin 2,000 unit, 2 mL, Route: IV, Drug form: INJ, During Dialysis, Dosing Weight 154.545, kg, PRN Dialysis, Start date: 01/13/16 8:12:00 [employer] ASSISTANT, Duration: 30 day, Stop date: 02/12/16 8:11:00 [employer] ASSISTANT Start Date: 01/13/16 Stop Date: 01/20/16 Status: Discontinued hydrALAZINE 20 mg, 1 mL, Route: IV, Drug form: INJ, ONCE, Start date: 01/18/16 14:30:00 [employer]S ASSISTANT , Stop date: 01/18/16 14:30:00 [employer]PENTER[employer] ASSISTANT Notes: (Same as: Apresoline)Push over 5 minutes Start Date: 01/18/16 Stop Date: 01/18/16 Status: Completed hydrALAZINE 50 mg oral tablet 50 mg, 1 tab, Route: PO, Drug form: TAB, TID, Dosing Weight 154.545, kg, Start date: 01/13/16 13:00:00 [employer] ASSISTANT, Duration: 30 day, Stop date: 02/12/16 9:00:00 [employer]PENTER[employer]S ASSISTANT Notes: (Same as: Apresoline) May interfere w/enteral feedings Take With Food Start Date: 01/13/16 Stop Date: 01/20/16 Status: Discontinued Insulin regular 10 unit, 0.1 mL, Route: IVP, Drug form: INJ, ONCE, Dosing Weight 155.909, kg, Start date: 01/19/16 19:47:00 [employer] ASSISTANT, Stop date: 01/19/16 19:47:00 CARPENTER'S ASSISTANT Notes: (Same as: Humulin R and NovoLIN R)WASTE: F/P - Black; E - Municipal Trash Bin (Do not shake) Start Date: 01/19/16 Stop Date: 01/20/16 Status: Completed lidocaine (ANES) Route: IV, Drug form: INJ, ONCE, Stop date: 01/19/16 17:46:00 [employer]S ASSISTANT Start Date: 01/19/16 Stop Date: 01/19/16 Status: Completed mannitol 12.5 gm, 50 mL, Route: IVPB, Drug form: INJ, PRN, Dosing Weight 154.545, kg, PRN Dialysis, Start date: 01/13/16 8:12:00 [employer]S ASSISTANT, Duration: 2 doses or times, Stop date: Limited # of times Notes: (Same as: Osmitrol) Infuse through 5 micron or smaller filter WASTE: F/ P - Sink; E - Municipal Trash Bin Start Date: 01/13/16 Stop Date: 01/20/16 Status: Discontinued metoprolol extended release 100 mg, 2 tab, Route: PO, Drug form: ERTAB, Daily, Start date: 01/14/16 9:00:00 [employer]S ASSISTANT, Duration: 30 day, Stop date: 02/12/16 9:00:00 [employer]PENTER'S ASSISTANT Notes: (Same as: Toprol XL) May split tab, but do not crush. Start Date: 01/14/16 Stop Date: 01/20/16 Status: Discontinued midazolam (ANES) Route: IV, Drug form: SOLN, ONCE, Stop date: 01/19/16 17:46:00 [employer]PENTER[employer]S ASSISTANT Start Date: 01/19/16 Stop Date: 01/19/16 Status: Completed morphine Sulfate 2 mg, 1 mL, Route: IVP, Drug form: INJ, Q4H, Dosing Weight 154.545, kg, PRN Pain Score 7-10, Start date: 01/13/16 9:38:00 [employer]S ASSISTANT, Duration: 30 day, Stop date: 02/12/16 9:37:00 [employer]PENTER'S ASSISTANT Notes: (Same as:MORPhine Sulfate) Start Date: 01/13/16 Stop Date: 01/13/16 Status: Discontinued neostigmine (ANES) Route: IV, Drug form: INJ, ONCE, Stop date: 01/19/16 18:44:00 [employer]PENTER'S ASSISTANT Start Date: 01/19/16 Stop Date: 01/19/16 Status: Completed Neurontin 100 mg, 1 cap, Route: PO, Drug form: CAP, TID, Start date: 01/13/16 22:00:00 [employer]PENTER[employer]S ASSISTANT , Duration: 30 day, Stop date: 02/12/16 17:00:00 [employer]PENTER'S ASSISTANT Notes: (Same as: Neurontin) Start Date: 01/13/16 Stop Date: 01/20/16 Status: Discontinued NIFEdipine 60 mg oral tablet, extended release 60 mg, 1 tab, Route: PO, Drug form: ERTAB, Daily, Dosing Weight 154.545, kg, Start date: 01/14/16 9:00:00 [employer]'S ASSISTANT, Duration: 30 day, Stop date: 02/12/16 9:00:00 CARPENTER'S ASSISTANT, .. Notes: (Same as: Adalat CC, Procardia XL) Give on empty stomach. Take 1 hour before or 2 hours after meal; "Avoid grapefruit and grapefruit juice". Do not crush Start Date: 01/14/16 Stop Date: 01/20/16 Status: Discontinued norepinephrine (ANES) Route: IV, Drug form: INJ, ONCE, Stop date: 01/19/16 17:46:00 [employer]S ASSISTANT Start Date: 01/19/16 Stop Date: 01/19/16 Status: Completed ondansetron 4 mg, 2 mL, Route: IVP, Drug form: INJ, Q6H, Dosing Weight 154.545, kg, PRN Nausea & Vomiting, Start date: 01/13/16 9:38:00 [employer] ASSISTANT, Duration: 30 day, Stop date : 02/12/16 9:37:00 [employer]PENTER[employer]S ASSISTANT Notes: (Same as: Clarissa) MEDICATION WASTE Product Size: 4 mgProduct Wasted: ___ mg Start Date: 01/13/16 Stop Date: 01/20/16 Status: Discontinued ondansetron (ANES) Route: IV, Drug form: INJ, ONCE, Stop date: 01/19/16 17:56:00 [employer]PENTER'S ASSISTANT Start Date: 01/19/16 Stop Date: 01/19/16 Status: Completed propofol (ANES) Route: IV, Drug form: INJ, ONCE, Stop date: 01/19/16 17:46:00 [employer]PENTER'S ASSISTANT Start Date: 01/19/16 Stop Date: 01/19/16 Status: Completed Renagel 1,600 mg, 2 tab, Route: PO, Drug form: TAB, TID, Dosing Weight 154.545, kg, Start date: 01/13/16 23:00:00 [employer] ASSISTANT, Duration: 30 day, Stop date: 02/12/16 17:00: 00 [employer] ASSISTANT Notes: Same as: Renvela Start Date: 01/13/16 Stop Date: 01/20/16 Status: Discontinued rocuronium (ANES) Route: IV, Drug form: INJ, ONCE, Stop date: 01/19/16 17:46:00 [employer]'S ASSISTANT Start Date: 01/19/16 Stop Date: 01/19/16 Status: Completed Saline Flush 0.9% 10 ml, Route: IVP, Drug Form: INJ, Dosing Weight 154.545, kg, PRN, PRN Line Flush, Start date: 01/13/16 9:38:00 [employer] ASSISTANT, Duration: 30 day, Stop date: 02/12/16 9 :37:00 [employer]PENTER'S ASSISTANT Notes: Same as: BD Posiflush Sterile Start Date: 01/13/16 Stop Date: 01/20/16 Status: Discontinued sodium chloride 0.9% (Priming and Maintenance) 2,000 mL, 1000 ml/hr, Infuse Over: 2 hr, Route: IV, 2,000, Drug form: INJ, PRN, Dosing Weight 154.545 kg, Start date: 01/13/16 8:49:00 [employer]'S ASSISTANT, Duration: 24 hr, Stop date: 01/14/16 8:48:00 [employer]PENTER'S ASSISTANT, For Use by Dialysis nurse ONLY, PRN Dialysis Start Date: 01/13/16 Stop Date: 01/14/16 Status: Completed sodium chloride 0.9% 1000 ml INJ 1,000 mL 1,000 mL, Rate: dialysis protocol, Route: IV, Dosing Weight 154.545 kg, Total Volume: 1,000 mL, Start date: 01/13/16 8:12:00 [employer]PENTER'S ASSISTANT, Duration: 30 day, Stop date : 02/12/16 8:11:00 CARPENTER'S ASSISTANT Start Date: 01/13/16 Stop Date: 01/20/16 Status: Discontinued sodium chloride 0.9% 500 ml INJ (ANES) Route: IV, Total Volume: 500, Start date: 01/19/16 16:44:00 CARPENTER'S ASSISTANT, Stop date: 04/04 17:44:00 CARPENTER'S ASSISTANT Start Date: 01/19/16 Stop Date: 01/19/16 Status: Completed sodium polystyrene sulfonate 30 gm, 120 mL, Route: PO, Drug form: SUSP, ONCE, Dosing Weight 155.909, kg, Start date: 01/19/16 19:47:00 [employer]PENTER'S ASSISTANT, Duration: 1 doses or times, Stop date: 19:47:00 [employer]PENTER'S ASSISTANT Notes: (sodium polystyrene sulfonate 15 gm/60 ml JASWINDER) Shake well before use. (Same as: Kayexalate, SPS) Start Date: 01/19/16 Stop Date: 01/20/16 Status: Completed Results BLOOD BANK RESULTS 1 2 3 Most recent to oldest [Reference Range]: B POS *Unknown* (01/13/16 5:05 AM) ABO/Rh Negative (01/13/16 5:05 AM) Antibody Scrn ELECTROLYTES 1 2 3 Most recent to oldest [Reference Range]: 136 mEq/L (01/19/16 6:40 AM) 142 mEq/L (01/14/16 4:08 AM) 144 mEq/L (01/13/16 4:45 AM) Sodium Lvl [135-145 mEq/L] 5.9 mEq/L *HI* (01/19/16 6:40 AM) 5.0 mEq/L (01/14/16 4:08 AM) 5.1 mEq/L (01/13/16 4:45 AM) Potassium Lvl [3.5-5.1 mEq/L] 99 mEq/L (01/19/16 6:40 AM) 106 mEq/L (01/14/16 4:08 AM) 106 mEq/L (01/13/16 4:45 AM) Chloride Lvl [95-109 mEq/L] 26 mEq/L (01/19/16 6:40 AM) 25 mEq/L (01/14/16 4:08 AM) 23 mEq/L *LOW* (01/13/16 4:45 AM) CO2 [24-32 mEq/L] 16.9 mEq/L (01/19/16 6:40 AM) 16.0 mEq/L (01/14/16 4:08 AM) 20.1 mEq/L *HI* (01/13/16 4:45 AM) AGAP [10.0-20.0 mEq/L] CHEM PANEL 1 2 3 Most recent to oldest [Reference Range]: 11.50 mg/dL *HI* (01/19/16 6:40 AM) 9.52 mg/dL *HI* (01/14/16 4:08 AM) 10.90 mg/dL *HI* (01/13/16 4:45 AM) Creatinine Lvl [0.50-1.40 mg/dL] 5 mL/min/1.73m2 1 *NA* (01/19/16 6:40 AM) 6 mL/min/1.73m2 2 *NA* (01/14/16 4:08 AM) 5 mL/min/1.73m2 3 *NA* (01/13/16 4:45 AM) eGFR 64 mg/dL *HI* (01/19/16 6:40 AM) 49 mg/dL *HI* (01/14/16 4:08 AM) 62 mg/dL *HI* (01/13/16 4:45 AM) BUN [7-22 mg/dL] 6 (01/13/16 4:45 AM) B/C Ratio [6-25] 108 mg/dL *HI* (01/19/16 6:40 AM) 92 mg/dL (01/14/16 4:08 AM) 94 mg/dL (01/13/16 4:45 AM) Glucose Lvl [70-99 mg/dL] 6.9 g/dL (01/13/16 4:45 AM) Total Protein [6.4-8.4 g/dL] 3.4 g/dL *LOW* (01/13/16 4:45 AM) Albumin Lvl [3.5-5.0 g/dL] 3.5 g/dL (01/13/16 4:45 AM) Globulin [2.7-4.2 g/dL] 1.0 (01/13/16 4:45 AM) A/G Ratio [0.7-1.6] 9.7 mg/dL (01/19/16 6:40 AM) 8.3 mg/dL *LOW* (01/14/16 4:08 AM) 8.5 mg/dL (01/13/16 4:45 AM) Calcium Lvl [8.5-10.5 mg/dL] 14 unit/L (01/13/16 4:45 AM) ALT [0-65 unit/L] 11 unit/L (01/13/16 4:45 AM) AST [0-37 unit/L] 186 unit/L *HI* (01/13/16 4:45 AM) Alk Phos [39-136 unit/L] 0.4 mg/dL (01/13/16 4:45 AM) Bili Total [0.2-1.3 mg/dL] 1Result Comment: The eGFR is calculated using [...] should be multiplied by the estimated BMI. 3Result Comment: The eGFR is calculated using the [...] multiplied by the estimated BMI. CARDIAC ENZYMES 1 2 3 Most recent to oldest [Reference Range]: 116 unit/L (01/13/16 10:54 AM) 123 unit/L (01/13/16 5:05 AM) Total CK [12-191 unit/L] 3.1 ng/mL (01/13/16 10:54 AM) 2.8 ng/mL (01/13/16 5:05 AM) CK MB [0.5-3.6 ng/mL] 2.7 *HI* (01/13/16 10:54 AM) 2.3 (01/13/16 5:05 AM) CK MB Index [0.0-2.5] 0.06 ng/mL (01/13/16 10:54 AM) 0.05 ng/mL (01/13/16 5:05 AM) Troponin-I [0.00-0.40 ng/mL] IMMUNOLOGY 1 2 3 Most recent to oldest [Reference Range]: Negative *NA* (01/13/16 10:54 AM) Hep Bs Ag [Negative] 40.5 mIU/mL *HI* (01/13/16 10:54 AM) Hep Bs Ab [<=7.4 mIU/mL] Negative *NA* (01/13/16 10:54 AM) Hep B Core Ab [Negative] HEMATOLOGY 1 2 3 Most recent to oldest [Reference Range]: 4.9 K/CMM (01/19/16 6:40 AM) 4.8 K/CMM (01/14/16 4:08 AM) 7.4 K/CMM (01/13/16 4:45 AM) WBC [3.7-10.4 K/CMM] 2.70 M/CMM *LOW* (01/19/16 6:40 AM) 2.49 M/CMM *LOW* (01/14/16 4:08 AM) 3.34 M/CMM *LOW* (01/13/16 4:45 AM) RBC [4.70-6.10 M/CMM] 8.4 g/dL *LOW* (01/19/16 6:40 AM) 7.8 g/dL *LOW* (01/14/16 4:08 AM) 10.5 g/dL *LOW* (01/13/16 4:45 AM) Hgb [14.0-18.0 g/dL] 25.0 % *LOW* (01/19/16 6:40 AM) 23.4 % *LOW* (01/14/16 4:08 AM) 31.4 % *LOW* (01/13/16 4:45 AM) Hct [42.0-54.0 %] 92.4 fL (01/19/16 6:40 AM) 94.0 fL (01/14/16 4:08 AM) 94.0 fL (01/13/16 4:45 AM) MCV [80.0-94.0 fL] 31.0 pg (01/19/16 6:40 AM) 31.5 pg *HI* (01/14/16 4:08 AM) 31.3 pg *HI* (01/13/16 4:45 AM) MCH [27.0-31.0 pg] 33.6 g/dL (01/19/16 6:40 AM) 33.5 g/dL (01/14/16 4:08 AM) 33.3 g/dL (01/13/16 4:45 AM) MCHC [32.0-36.0 g/dL] 15.0 % *HI* (01/19/16 6:40 AM) 15.4 % *HI* (01/14/16 4:08 AM) 15.0 % *HI* (01/13/16 4:45 AM) RDW [11.5-14.5 %] 160 K/CMM (01/19/16 6:40 AM) 154 K/CMM (01/14/16 4:08 AM) 239 K/CMM (01/13/16 4:45 AM) Platelet [133-450 K/CMM] 8.0 fL (01/19/16 6:40 AM) 7.9 fL (01/14/16 4:08 AM) 8.1 fL (01/13/16 4:45 AM) MPV [7.4-10.4 fL] 76.5 % *HI* (01/19/16 6:40 AM) 67.8 % (01/14/16 4:08 AM) 67.5 % (01/13/16 4:45 AM) Segs [45.0-75.0 %] 8.7 % *LOW* (01/19/16 6:40 AM) 15.3 % *LOW* (01/14/16 4:08 AM) 18.6 % *LOW* (01/13/16 4:45 AM) Lymphocytes [20.0-40.0 %] 12.0 % (01/19/16 6:40 AM) 14.2 % *HI* (01/14/16 4:08 AM) 11.9 % (01/13/16 4:45 AM) Monocytes [2.0-12.0 %] 2.4 % (01/19/16 6:40 AM) 2.3 % (01/14/16 4:08 AM) 1.6 % (01/13/16 4:45 AM) Eosinophils [0.0-4.0 %] 0.4 % (01/19/16 6:40 AM) 0.4 % (01/14/16 4:08 AM) 0.4 % (01/13/16 4:45 AM) Basophils [0.0-1.0 %] 3.8 K/CMM (01/19/16 6:40 AM) 3.3 K/CMM (01/14/16 4:08 AM) 5.0 K/CMM (01/13/16 4:45 AM) Segs-Bands # [1.5-8.1 K/CMM] 0.4 K/CMM *LOW* (01/19/16 6:40 AM) 0.7 K/CMM *LOW* (01/14/16 4:08 AM) 1.4 K/CMM (01/13/16 4:45 AM) Lymphocytes # [1.0-5.5 K/CMM] 0.6 K/CMM (01/19/16 6:40 AM) 0.7 K/CMM (01/14/16 4:08 AM) 0.9 K/CMM *HI* (01/13/16 4:45 AM) Monocytes # [0.0-0.8 K/CMM] 0.1 K/CMM (01/19/16 6:40 AM) 0.1 K/CMM (01/14/16 4:08 AM) 0.1 K/CMM (01/13/16 4:45 AM) Eosinophils # [0.0-0.5 K/CMM] 14.4 seconds (01/13/16 4:45 AM) PT [12.0-14.7 seconds] 1.10 (01/13/16 4:45 AM) INR [0.85-1.17] 31.3 seconds (01/13/16 4:45 AM) PTT [22.9-35.8 seconds] Immunizations Given and Recorded Vaccine Date Status Refusal Reason Hx pneumococcal vaccine 03/13/14 Given influenza virus vaccine, H1N1, live 11/23/15 Given influenza virus vaccine, inactivated 10/18/14 Given Procedures Procedure Date Related Diagnosis Body Site [...]
--- OUTSIDE RECORDS SUMMARY | 2017-11-20 05:37 | XMS REPORT | Summary of Care ---
Author Author [facility] Organization [facility] Address Unknown Phone Unavailable Encounter PHILLIP Whittington(MIMI) [id number] Date(s): 09/07/14 - 09/07/14 [facility] [address] [employer] provided by [facility] [place] [address]- Discharge Diagnosis: Pain, low back Discharge Disposition: Home Attending Physician: Thais Rodriguez MD Vital Signs 1 2 3 Most recent to oldest [Reference Range]: 185.42 cm (09/07/14 10:51 AM) Height 1 2 3 Most recent to oldest [Reference Range]: 97.2 DegF (09/07/14 4:07 PM) 97.4 DegF (09/07/14 12:10 PM) 98.1 DegF (09/07/14 10:51 AM) Temperature Oral [96.4-99.1 DegF] 1 2 3 Most recent to oldest [Reference Range]: 184/98 mmHg *HI* (09/07/14 4:07 PM) 167/93 mmHg *HI* (09/07/14 10:51 AM) Blood Pressure [90-140/60-90 mmHg] 179 mmHg *HI* (09/07/14 12:10 PM) Systolic Blood Pressure [90-140 mmHg] 1 2 3 Most recent to oldest [Reference Range]: 107 mmHg *HI* (09/07/14 12:10 PM) Diastolic Blood Pressure [60-90 mmHg] 1 2 3 Most recent to oldest [Reference Range]: 16 BRMIN (09/07/14 4:07 PM) 18 BRMIN (09/07/14 12:10 PM) 18 BRMIN (09/07/14 10:51 AM) Respiratory Rate [14-20 BRMIN] 1 2 3 Most recent to oldest [Reference Range]: 75 bpm (09/07/14 4:07 PM) 73 bpm (09/07/14 12:10 PM) 82 bpm (09/07/14 10:51 AM) Peripheral Pulse Rate [60-100 bpm] 1 2 3 Most recent to oldest [Reference Range]: 168.182 kg (09/07/14 10:51 AM) Weight 1 2 3 Most recent to oldest [Reference Range]: 48.92 m2 (09/07/14 10:51 AM) Body Mass Index Problem List Condition Effective Dates Status Health Status Informant Apnea(Confirmed) Resolved DM (diabetes Resolved mellitus)(Confirmed) ESRD (end stage Resolved renal disease)(Confirmed) Hypertension(Confirm Resolved ed) Allergies, Adverse Reactions, Alerts Substance Reaction Severity Status NKDA Active Medications ibuprofen 600 mg, 1 tab, Route: PO, Drug form: TAB, ONCE, Dosing Weight 168.182, kg, Priority: STAT, Start date: 09/07/14 12:50:00, Stop date: 09/07/14 12:50:00 Notes: (Same as: Motrin)"Do Not Crush" Take with food. Start Date: 09/07/14 Stop Date: 09/07/14 Status: Discontinued [place] 5/325 oral tablet 1 tab, PO, Q6H, 0 Refill(s) Start Date: 09/07/14 Status: Ordered [place] 5/325 oral tablet 1 tab, Route: PO, Drug Form: TAB, Dosing Weight 168.182, kg, ONCE, STAT, Start date: 09/07/14 13:05:00, Stop date: 09/07/14 13:05:00 Start Date: 09/07/14 Stop Date: 09/07/14 Status: Completed Results No data available for [...]
--- OUTSIDE RECORDS SUMMARY | 2017-11-20 05:37 | XMS REPORT | Clinical Summary ---
Author Author PASHA UIBLUEPRINTShoshone Medical CenterSponduuNEA Medical CenterProteoMediXPeace[facility] Address Unknown Phone Unavailable Care Team Providers Care Venture Capitalist Name Role Phone PCP Unavailable Allergies Active Allergy Reactions Severity Noted Date Comments Codeine Itching 04/24/2015 Tramadol 09/27/2014 GI Upset Current Medications Prescription Sig. Disp. Refills Start End Date Status Date amitriptyline (ELAVIL) 50 Take 50 mg by mouth Active MG tablet nightly. cloNIDine HCl (CATAPRES) Take 1 tablet (0.2 mg 90 tablet 2 12/30/19 Active 0.2 MG tablet total) by mouth 3 (three) 15 times daily. hydrALAZINE (APRESOLINE) Take 1 tablet (50 mg 90 tablet 2 12/30/19 Active 50 MG tablet total) by mouth 3 (three) 15 times daily. senna-docusate Take 2 tablets by mouth 2 Active (SENNOSIDES-DOCUSATE (two) times daily. SODIUM) 8.6-50 mg per tabletIndications: constipation albuterol HFA (VENTOLIN Inhale 1 puff by mouth Active HFA) 90 mcg/actuation via inhaler every 6 (six) inhaler hours as needed for Wheezing. aspirin 81 MG EC tablet Take 81 mg by mouth Active daily. cinacalcet (SENSIPAR) 30 Take 30 mg by mouth Active MG tablet daily. diphenhydrAMINE Take 25 mg by mouth every Active (BENADRYL) 25 mg capsule 6 (six) hours as needed for Itching. DULoxetine (CYMBALTA) 60 Take 60 mg by mouth Active MG capsuleIndications: daily. Diabetic Peripheral Neuropathy, Neuropathic Pain ondansetron (ZOFRAN) 8 MG Take 8 mg by mouth every Active tabletIndications: Cancer 8 (eight) hours as needed Chemotherapy-Induced for Nausea. Nausea and Vomiting, Prevention of Chemotherapy-Induced Nausea and Vomiting pantoprazole (PROTONIX) Take 40 mg by mouth Active 40 MG tablet daily. carvedilol (COREG) 6.25 Take 1 tablet (6.25 mg 60 tablet 0 07/26/19 07/26/19 Active MG tabletIndications: total) by mouth 2 (two) 18 19 hypertension times daily with breakfast and dinner. sevelamer (RENVELA) 800 Take 2 tablets (1,600 mg 90 tablet 0 07/26/19 07/26/19 Active mg tablet total) by mouth 3 (three) 18 19 times daily with meals. heparin injection 5,000 Inject 1 mL (5,000 Units 1 mL 0 08/23/19 Active units/mL for DVT total) subcutaneously 18 prophylaxis/dialysis every 12 (twelve) hours. lock/IV bolus TiZANidine (ZANAFLEX) 4 Take 4 mg by mouth 3 08/23/19 Discontin MG capsule (three) times daily. 18 ued sevelamer (RENAGEL) 800 Take 4,000 mg by mouth 3 07/26/19 Discontin MG tablet (three) times daily with 18 ued meals. carvedilol (COREG) 3.125 Take 3.125 mg by mouth 2 07/26/19 Discontin MG tabletIndications: (two) times daily with 18 ued hypertension breakfast and dinner. HYDROcodone-acetaminophen Take 1 tablet by mouth 08/05/19 Discontin (NORCO 7.5-325) 7.5-325 every 4 (four) hours as 18 ued mg per tablet needed for Pain. HYDROmorphone (DILAUDID) Take 1 tablet (2 mg 30 tablet 0 08/05/19 Discontin 2 MG tablet total) by mouth every 4 18 18 ued (four) hours as needed. Max Daily Amount: 12 mg gabapentin (NEURONTIN) Take 100 mg by mouth 2 08/23/19 Discontin 100 MG capsule (two) times daily. 18 ued metoprolol (LOPRESSOR) 50 Take 50 mg by mouth 08/23/19 Discontin MG tablet daily. 18 ued PAZOPanib (VOTRIENT) 200 Take 800 mg by mouth 08/23/19 Discontin mg tablet daily. 18 ued HYDROmorphone (DILAUDID) Take 1 tablet (4 mg 30 tablet 0 08/23/19 4 MG tablet total) by mouth every 4 18 18 (four) hours as needed for up to 10 days. Max Daily Amount: 24 mg sod [id number] 1 packet by Nasal route 2 14 packet 0 08/30/19 bottle (AYR SALINE NASAL (two) times daily for 7 18 18 RINSE) pkdv days. sterile water, bottle, Irrigate with 180 mLs as 1000 mL 0 08/23/19 08/30/19 irrigation directed 2 (two) times 18 18 daily for 7 days. amoxicillin-clavulanate Take 1 tablet by mouth 10 tablet 0 08/23/19 09/02/19 (AUGMENTIN) 500-125 mg daily for 10 days. 18 18 per tablet Active Problems Problem Noted Date ESRD (end stage renal disease) on dialysis ([facility]) 08/26/2017 Therapeutic opioid-induced constipation (OIC) 08/26/2017 Hypertensive urgency 08/26/2017 Dyspnea and respiratory abnormality 08/18/2017 Other chronic pain 08/18/2017 Renal cell carcinoma, unspecified laterality (HCC) 08/18/2017 Hypervolemia, unspecified hypervolemia type 08/03/2017 Hemodialysis catheter infection ([facility]) 07/19/2017 Depression 07/19/2017 Hypertension 07/19/2017 GERD (gastroesophageal reflux disease) 07/19/2017 Malignant hypertension w/o heart disease, with chronic kidney disease, 12/29 stage 5 chronic kidney disease or end stage renal disease ([facility]) Back pain 12/29/2014 Hypertensive heart disease with congestive heart failure ([facility]) 12/29/2014 Systolic congestive heart failure with reduced left ventricular function, NYHA class 2 ([facility]) Hyperkalemia 12/27/2014 ESRD (end stage renal disease) on dialysis ([facility]) 12/27/2014 Acute chest pain 07/01/2014 SOB (shortness of breath) 05/08/2013 AV fistula occlusion ([facility]) 05/07/2013 Encounters Date Type Specialty Care Team Description 09/03/2017 Emergency Emergency Medicine Bebo Liz MD Right hip pain (Primary Dx);Myalgia;Arthralgia, unspecified joint;ESRD (end stage renal disease) on dialysis ([facility]);Other chronic pain 08/25/2017 [facility] WinfallMike MD Acute chest pain (Primary - Encounter Luigi Lazaro MD Dx);SOB (shortness of 08/27/2017 Liz Mckeon MD breath);ESRD (end stage renal disease) on dialysis ([facility]);Hyperkalemia 08/18/2017 [facility] General Internal Medicine Nereida Torres DO ESRD (end stage renal - Encounter Bubba Atkins MD disease) on dialysis 08/22/2017 ([facility]) (Primary Dx);Dyspnea and respiratory abnormality;Other chronic pain;Renal cell carcinoma, unspecified laterality ([facility]);Hypertensive heart disease with combined systolic and diastolic congestive heart failure, unspecified HF chronicity ([facility]);Acute chest pain 08/03/2017 Emergency General Internal Medicine Keturah Kaba MD Hypervolemia, unspecified - Christ Plunkett MD hypervolemia type 08/05/2017 (Primary Dx);Systolic congestive heart failure with reduced left ventricular function, NYHA class 2 ([facility]);Hypertension, unspecified type;ESRD (end stage renal disease) ([facility]) 08/03/2017 Orders Only General Internal Medicine 07/19/2017 [facility] Internal Medicine Brendan Castillo MD - Encounter 07/26/2017 after 10/17/2016 Family History Medical History Relation Name Comments Hypertension Brother Hypertension Father Hypertension Mother Relation Name Status Comments Brother Father Mother Social History Tobacco Use Types Packs/Day Years Used Date Never Smoker Smokeless Tobacco: Never Used Alcohol Use Drinks/Week oz/Week Comments Yes 1 Standard 0.5 drinks or equivalent Sex Assigned at Date Recorded Not on file Last Filed Vital Signs Vital Sign Reading Time Taken Blood Pressure 170/106 09/03/2017 9:14 AM CDT Pulse 89 09/03/2017 9:14 AM CDT Temperature 36.8 C (98.2 F) 09/03/2017 8:39 AM CDT Respiratory Rate 18 09/03/2017 9:14 AM CDT Oxygen Saturation 100% 09/03/2017 9:14 AM CDT Inhaled Oxygen - - Concentration Weight 112.5 kg (248 lb) 09/03/2017 8:39 AM CDT Height 185.4 cm (6' 1") 09/03/2017 8:39 AM CDT Body Mass Index 32.72 09/03/2017 8:39 AM CDT Plan of Treatment Not on file Procedures Procedure Name Priority Date/Time Associated Diagnosis Comments CRITICAL CARE Routine 08/27/2017 Results for this 12:02 AM CDT procedure are in the results section. after 10/17/2016 Results * XR spine lumbar complete 4 views min (09/03/2017 9:53 AM) Specimen Performing Laboratory GE RIS Narrative FINAL REPORT Two views four images right hip. Overlying material and multiple skin folds diminishes quality of the right hip evaluation and regional soft tissues. While I do not see specific evidence of gross fracture or dislocation, subtle injury including soft tissue injury could not be excluded. Six images lumbar spine. Extensive bowel gas as well as osteopenia, degenerative changes, and compression deformities at multiple upper lumbar levels with bone cement result in a limited overall lumbar spine evaluation. There is grossly normal alignment. Compression deformities at L1-L3 are identified with bone cement but superimposed acute injury could not be excluded on these images. There is left femoral dialysis catheter in place. IMPRESSIONS: I do not see convincing acute/emergent finding, but the studies are limited as discussed. Consider CT follow-up if clinically warranted. Signed: Mignon Felder MD Report Verified Date/Time:09/03/2017 10:09:01 Reading Location: [facility] Radiology Reading Room Procedure Note Interface, External Ris In - 09/03/2017 10:11 AM CDT FINAL REPORT Two views four images right hip. Overlying material and multiple skin folds diminishes quality of the right hip evaluation and regional soft tissues. While I do not see specific evidence of gross fracture or dislocation, subtle injury including soft tissue injury could not be excluded. Six images lumbar spine. Extensive bowel gas as well as osteopenia, degenerative changes, and compression deformities at multiple upper lumbar levels with bone cement result in a limited overall lumbar spine evaluation. There is grossly normal alignment. Compression deformities at L1-L3 are identified with bone cement but superimposed acute injury could not be excluded on these images. There is left femoral dialysis catheter in place. IMPRESSIONS: I do not see convincing acute/emergent finding, but the studies are limited as discussed. Consider CT follow-up if clinically warranted. Signed: Mignon Felder MD Report Verified Date/Time: 09/03/2017 10:09:01 Reading Location: [facility] Radiology Reading Room * XR hip 2 views right (09/03/2017 9:52 AM) Specimen Performing Laboratory GE RIS Narrative FINAL REPORT Two views four images right hip. Overlying material and multiple skin folds diminishes quality of the right hip evaluation and regional soft tissues. While I do not see specific evidence of gross fracture or dislocation, subtle injury including soft tissue injury could not be excluded. Six images lumbar spine. Extensive bowel gas as well as osteopenia, degenerative changes, and compression deformities at multiple upper lumbar levels with bone cement result in a limited overall lumbar spine evaluation. There is grossly normal alignment. Compression deformities at L1-L3 are identified with bone cement but superimposed acute injury could not be excluded on these images. There is left femoral dialysis catheter in place. IMPRESSIONS: I do not see convincing acute/emergent finding, but the studies are limited as discussed. Consider CT follow-up if clinically warranted. Signed: Mignon Felder MD Report Verified Date/Time:09/03/2017 10:09:01 Reading Location: [facility] Radiology Reading Room Procedure Note Interface, External Ris In - 09/03/2017 10:11 AM CDT FINAL REPORT Two views four images right hip. Overlying material and multiple skin folds diminishes quality of the right hip evaluation and regional soft tissues. While I do not see specific evidence of gross fracture or dislocation, subtle injury including soft tissue injury could not be excluded. Six images lumbar spine. Extensive bowel gas as well as osteopenia, degenerative changes, and compression deformities at multiple upper lumbar levels with bone cement result in a limited overall lumbar spine evaluation. There is grossly normal alignment. Compression deformities at L1-L3 are identified with bone cement but superimposed acute injury could not be excluded on these images. There is left femoral dialysis catheter in place. IMPRESSIONS: I do not see convincing acute/emergent finding, but the studies are limited as discussed. Consider CT follow-up if clinically warranted. Signed: Mignon Felder MD Report Verified Date/Time: 09/03/2017 10:09:01 Reading Location: [facility] Radiology Reading Room * CBC with platelet count + automated diff (09/03/2017 8:56 AM) Only the most recent of 14 results within the time period is included. Component Value Ref Range WBC 7.4 3.5 - 10.5 K/ L RBC 2.74 (L) 4.63 - 6.08 M/ L Hemoglobin 7.8 (L) 13.7 - 17.5 GM/DL Hematocrit 25.7 (L) 40.1 - 51.0 % MCV 93.8 (H) 79.0 - 92.2 fL MCH 28.5 25.7 - 32.2 pg MCHC 30.4 (L) 32.3 - 36.5 GM/DL RDW 16.6 (H) 11.6 - 14.4 % Platelets 250 150 - 450 K/CU MM MPV 9.4 9.4 - 12.4 fL nRBC 0 0 - 0 /100 WBC % Neutros 78 % % Lymphs 4 % % Monos 16 % % Eos 1 % % Baso 1 % # Neutros 5.74 (H) 1.78 - 5.38 K/ L # Lymphs 0.28 (L) 1.32 - 3.57 K/ L # Monos 1.18 (H) 0.30 - 0.82 K/ L # Eos 0.07 0.04 - 0.54 K/ L # Baso 0.05 0.01 - 0.08 K/ L Immature 0 0 - 1 % Granulocytes-Relative Specimen Performing [place] [address] * CBC with platelet count + automated diff (09/03/2017 8:56 AM) Only the most recent of 14 results within the time period is included. Specimen Performing Laboratory Blood Narrative The following orders were created for panel order CBC with platelet count + automated diff. Procedure Abnormality Status --------- - ------ CBC with platelet count ...[[id number]]AbnormalFinal result Please view results for these tests on the individual orders. * Basic Metabolic Panel (09/03/2017 8:56 AM) Only the most recent of 17 results within the time period is included. Component Value Ref Range Sodium 133 (L) 136 - 145 meq/L Potassium 5.7 (H) 3.5 - 5.1 meq/L Chloride 97 (L) 98 - 107 meq/L CO2 21 (L) 22 - 29 meq/L BUN 55 (H) 7 - 21 mg/dL Creatinine 5.98 (H) 0.57 - 1.25 mg/dL Glucose 77 70 - 105 mg/dL Calcium 11.1 (H) 8.4 - 10.2 mg/dL EGFR 12Comment: ESTIMATED GFR IS NOT ACCURATE mL/min/1.73 sq m CREATININE CLEARANCE IN PREDICTING GLOMERULAR FILTRATION RATE. ESTIMATED GFR IS NOT APPLICABLE FOR DIALYSIS PATIENTS. Specimen Performing [place] [address] * RHYTHM STRIP - SCAN (08/28/2017 12:43 PM) Only the most recent of 4 results within the time period is included. * Hemodialysis (08/27/2017 7:10 PM) Only the most recent of 6 results within the time period is included. Tatyana Marin RN 08/27/20177:10 PM Received pt via stretcher, not in a good mood, irritable. Explained hd tx plan pt refused to take UF 3 liters wants 4 liters UF. Started hd tx as ordered. Dr. Acosta made aware pt is on hd tx. Lab Results Component Value Date WBC 7.1 08/25/2017 HGB 7.8 (L) 08/25/2017 HCT 26.8 (L) 08/25/2017 MCV 96.4 (H) 08/25/2017 PLT 217 08/25/2017 Chemistry Component Value Date/Time NA 137 08/27/2017 0412 K 4.7 08/27/2017 1409 CL 98 08/27/2017 0412 CO2 27 08/27/2017 0412 BUN 53 (H) 08/27/2017 0412 CREATININE 5.10 (H) 08/27/2017 0412 Component Value Date/Time CALCIUM 9.8 08/27/2017 0412 ALKPHOS 132 07/21/2017 0526 AST 12 07/21/2017 0526 ALT 7 07/21/2017 0526 BILITOT 0.5 07/21/2017 0526 Results for MARYCARMEN BUENO ( ) as of 08/27/2017 17:49 Ref. Range 08/18/2017 14:36 Hepatitis B Surface Ag Latest Ref Range: NonreactiveNonreactive To monitor pt. * POC-Glucose meter (08/27/2017 6:02 PM) Only the most recent of 19 results within the time period is included. Component Value Ref Range POC-Glucose Meter 117 (H)Comment: TESTED AT [address] 70 - 110 mg /dL [facility] [id number] Specimen [place] [address] * Potassium (08/27/2017 2:09 PM) Component Value Ref Range Potassium 4.7 3.5 - 5.1 meq/L Specimen Performing Laboratory Blood - Central Venous [facility] Line [address] [place] [address] * Phosphorus (08/27/2017 4:12 AM) Only the most recent of 7 results within the time period is included. Component Value Ref Range Phosphorus 4.5 2.3 - 4.7 mg/dL Specimen [place] [address] * Magnesium (08/27/2017 4:12 AM) Only the most recent of 8 results within the time period is included. Component Value Ref Range Magnesium 1.9 1.6 - 2.6 mg/dL Specimen [place] [address] * ED ECG Interpretation (08/27/2017 12:02 AM) Only the most recent of 3 results within the time period is included. Narrative Mike Matson MD 08/27/2017 12:02 AM ECG/EKG Interpretation Date/Time: 08/25/2017 9:29 PM Performed by: MIKE MATSON Authorized by: MIKE MATSON The ECG was interpreted by ED physician. * Critical Care (08/27/2017 12:02 AM) Narrative Mike Matson MD 08/27/2017 12:02 AM Critical Care Performed by: MIKE MATSON Authorized by: LIZ MCKEON Total critical care time: 60 minutes Critical care time was exclusive of separately billable procedures and treating other patients and teaching time. Critical care was necessary to treat or prevent imminent or life-threatening deterioration of the following conditions: renal failure. Critical care was time spent personally by me on the following activities: blood draw for specimens, development of treatment plan with patient or surrogate, discussions with consultants, discussions with primary provider, evaluation of patient's response to treatment, interpretation of cardiac output measurements, examination of patient, ordering and performing treatments and interventions, obtaining history from patient or surrogate, ordering and review of laboratory studies, ordering and review of radiographic studies, pulse oximetry, re-evaluation of patient's condition and review of old charts. * ECG 12 lead (08/26/2017 4:51 AM) Only the most recent of 4 results within the time period is included. Specimen Performing Laboratory GE MUSE Narrative Ventricular Rate 85 BPM Atrial Rate 85 BPM P-R Interval 244 ms QRS Duration 112 ms Q-T Interval 382 ms QTC Calculation(Bazett) 454 ms P [place] 85 degrees R [place] -7 degrees T [place] 95 degrees Sinus rhythm with 1st degree A-V block Incomplete left bundle branch block Nonspecific T wave abnormality Abnormal ECG When compared with ECG of 25-AUG-2017 16:20, Criteria for Anteroseptal infarct are no longer Present Confirmed by MD CYR YOCHAI ([id number]) on 08/26/2017 6:51:54 AM Procedure Note Interface, External Ris In - 08/26/2017 6:52 AM CDT Ventricular Rate 85 BPM Atrial Rate 85 BPM P-R Interval 244 ms QRS Duration 112 ms Q-T Interval 382 ms QTC Calculation(Bazett) 454 ms P [place] 85 degrees R [place] -7 degrees T [place] 95 degrees Sinus rhythm with 1st degree A-V block Incomplete left bundle branch block Nonspecific T wave abnormality Abnormal ECG When compared with ECG of 25-AUG-2017 16:20, Criteria for Anteroseptal infarct are no longer Present Confirmed by MD CYR YOCHAI ([id number]) on 08/26/2017 6:51:54 AM * Troponin I (08/26/2017 4:21 AM) Only the most recent of 7 results within the time period is included. Component Value Ref Range Troponin I 0.02 0.00 - 0.03 ng/mL Specimen Performing Laboratory Blood - Central Venous [facility] [address] [place] [address] Narrative Troponin I (TnI) levels must be interpreted in the context of the presenting symptoms and the clinical findings. Elevated TnI levels indicate myocardial damage, but are not specific for ischemic heart disease. Elevated TnI levels are seen in patients with other cardiac conditions (including myocarditis and congestive heart failure), and slight TnI elevations occur in patients with other conditions, including sepsis, renal failure, acidosis, acute neurological disease, and persistent tachyarrhythmia. * XR chest PA or AP 1 view in dept (08/25/2017 8:38 PM) Specimen Performing Laboratory GE RIS Narrative FINAL REPORT Chest, portable AP view History: Chest pain, shortness of breath Comparison: Chest radiograph and chest CT dated 08/20/2017 IMPRESSION: The heart is mildly enlarged, stable. There is redemonstration of diffuse interstitial airspace opacities which are not significantly changed from the prior examination and are compatible with lymphangitic carcinomatosis. Left chest port is in unchanged position. Signed: Graeme Younger MD Report Verified Date/Time:08/25/2017 21:20:12 Reading Location: [address] Consult Reading Room Procedure Note Interface, External Ris In - 08/25/2017 9:22 PM CDT FINAL REPORT Chest, portable AP view History: Chest pain, shortness of breath Comparison: Chest radiograph and chest CT dated 08/20/2017 IMPRESSION: The heart is mildly enlarged, stable. There is redemonstration of diffuse interstitial airspace opacities which are not significantly changed from the prior examination and are compatible with lymphangitic carcinomatosis. Left chest port is in unchanged position. Signed: Graeme Younger MD Report Verified Date/Time: 08/25/2017 21:20:12 Reading Location: [facility] B1 [id number] Consult Reading Room * PT/PTT (08/25/2017 7:16 PM) Only the most recent of 3 results within the time period is included. Component Value Ref Range Protime 15.0 (H) 11.7 - 14.7 seconds INR 1.2 <=5.9 PTT 40.5 (H) 22.5 - 36.0 seconds Specimen Performing Laboratory Blood - Arm, Right [facility] [address] [address] Narrative RECOMMENDED COUMADIN/WARFARIN INR THERAPY RANGES STANDARD DOSE: 2.0 - 3.0 Includes: PROPHYLAXIS for venous thrombosis, systemic embolization; TREATMENT for venous thrombosis and/or pulmonary embolus. HIGH RISK: Target INR is 2.5-3.5 for patients with mechanical heart valves. * B-type Natriuretic Factor (BNP) (08/25/2017 7:16 PM) Only the most recent of 2 results within the time period is included. Component Value Ref Range BNP 928 (H) 0 - 100 pg/mL Specimen Performing Laboratory Blood - Arm, [address] [address] * Creatine Kinase (CK), Total and MB (not available at [facility] and [facility]) (08/25 7:16 PM) Only the most recent of 4 results within the time period is included. Component Value Ref Range Total CK 89 29 - 200 U/L CK-MB 3.7 0.0 - 6.6 ng/mL MB Relative Index 4.2 % Specimen Performing Laboratory Blood - Arm, [address] [address] Narrative CK-MB Reference Range: <6.7Normal 6.7-10.0Borderline >10.0 Abnormal * ECHOCARDIOGRAM REPORT - SCAN (08/22/2017 12:26 PM) * 2D Echo W/Doppler(CW/PW/Color) (08/21/2017 2:18 PM) Component Value Ref Range Ejection Fraction Specimen Performing Laboratory [facility] Narrative Transthoracic Echocardiography Report (TTE) Demographics Patient NameNORWOOD, Date of Study08/21 MARYCARMEN Gender Male Visit [id number] Race Unknown Number [id number] Number Date of 1960 Referring PhysicianNicolasa Hooks MD Age 57 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 Clinical History CANCER, DVT, ESRD, NM HGB 7.4 HCT 25.3 % Height: 72 inches Weight: 99.79 kg (220 lbs) BSA: 2.22 m^2 BMI: 29.84 kg/m^2 HR: 84 bpm BP: 147/71 mmHg Summary 1. LV is severely enlarged by volume. LVEF is mildly reduced. LVEF is 50-54% 2. Diastology: Unable to comment due to e/a fusion (Tissue Doppler) 3. RV is severely enlarged. DEpressed RV function 4. No significant valvular heart disease 5. Trace TR. Unable to estimate PASP 6. Small pericardial effusion noted. Previous Study In comparison with the prior exam 07-01-14 the following changes are noted: LV systolic function has improved . Signature Findings Left Ventricle The left ventricle is chamber size (by vol index ) is severely enlarged (male - LVED vol >100ml/m2). Moderate concentric LV hypertrophy. The following segment(s) appear mildly hypokinetic: inferolateral, basal inferior . The other segments contract normally. Global LV systolic function lower limits of normal . LVEF by Kirby's method of disk assessment is mildly reduced (50-55%) . The LVEF was measured using Kirby' s bi-plane method of disk . The inferolateral wall appaers hypokinetic. Normal (cardiac index 2-3 L/min/m2) cardiac output state at rest is noted. Grade 3 diastolic dysfunction (marked elevated LA pressure). Left AtriumLA size is severely enlarged (>48 ml/m2) . Right VentricleRV is severely enlarged. Depressed RV function Right Atrium RA cavity size is mildly enlarged . Aortic Valve Normal AoV structure. Mitral Valve Normal MV structure. Tricuspid ValveA trace of tricuspid regurgitation. Estimated peak systolic PA pressure is 30-35 mmHg . Pulmonic Valve Normal PV structure and function by limited views and Doppler. A trace of pulmonary regurgitation. AortaAortic root size (Sinus of Valsalva diameter) is mildly dilated. 4.0 cm Proximal ascending aorta size mildly dilated . 3.7 cm PericardiumSmall pericardial effusion is present . IVC/SVC/PA/PV/PleuralThe estimated RA pressure by IVC dynamics 5-10mmHg . Chambers/Structures Left Atrium LA Volume: 120.8 ml LA Area: 33.77 cm^2 LA Vol. Index: 54 ml/m^2 Left Ventricle LVIDd: 4.22 cm LV Septum Diastolic: 1.65 cm LV PW Diastolic: 1.75 cm LVEDV Kirby's:300.36 ml LVESV Kirby's:146.15 ml LVEF Kirby's: 51.3 % LVEDVI: 135 ml/m ^2 LVESVI: 66 ml/m^2 LVOT Diameter: 2.32 cm Right Atrium RA Vol. (Sngl Plane): 58.84 ml Right Ventricle TAPSE: 1.98 cm Aorta Ao Root S of Vivienne.: 3.99 cmAscending Aorta: 3.68 cm Doppler/Quantitative Measurements Mitral Valve MV Peak E-Wave: 1.5 m/s MV Peak A-Wave: 1.04 m/s E/ A Ratio: 1.43 Peak Gradient: 8.98 mmHg Deceleration Time: 175.1 msec MV Mitch. Peak: Tissue Doppler E' Lateral Velocity: 0.08 m/s E/E': 17.92 Aortic Valve Peak Velocity: 1.94 m/sMean Velocity: 1.45 m/s Peak Gradient: 15.05 mmHgMean Gradient: 9.19 mmHg AV Area (continuity): 2.02 cm^2 AV VTI: 40.04 cm AV DVI: 0.48 LVOT Peak Velocity: 0.92 m/s Peak Gradient: 3.36 mmHg Mean Velocity: 0.66 m/s Mean Gradient: 1.99 mmHg LVOT Diameter: 2.32 cmLVOT VTI: 19.13 cm LVOT Area: 4.23 cm^2LVOT SV:80.83 ml LVOT CO: 6.79 l/min LVOT CI: 3.06 l/min/m^2 Tricuspid Valve TR Velocity: 2.64 m/s TR Gradient: 27.97 mmHg Procedure Note Interface, External Ris In - 08/22/2017 11:49 AM CDT Transthoracic Echocardiography Report (TTE) Demographics Patient Name XIMENA, Date of Study 08/21/2017 MARYCARMEN Gender Male Visit Number [id number] Race Unknown Room Number 909 Number Date of 1960 Referring Physician Nicolasa Hooks MD Age 57 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 Clinical History CANCER, DVT, ESRD, NM HGB 7.4 HCT 25.3 % Height: 72 inches Weight: 99.79 kg (220 lbs) BSA: 2.22 m^2 BMI: 29.84 kg/m^2 HR: 84 bpm BP: 147/71 mmHg Summary 1. LV is severely enlarged by volume. LVEF is mildly reduced. LVEF is 50-54% 2. Diastology: Unable to comment due to e/a fusion (Tissue Doppler) 3. RV is severely enlarged. DEpressed RV function 4. No significant valvular heart disease 5. Trace TR. Unable to estimate PASP 6. Small pericardial effusion noted. Previous Study In comparison with the prior exam 515-15 the following changes are noted: LV systolic function has improved . Signature Findings Left Ventricle The left ventricle is chamber size (by vol index) is severely enlarged (male - LVED vol >100ml/m2). Moderate concentric LV hypertrophy. The following segment(s) appear mildly hypokinetic: inferolateral, basal inferior . The other segments contract normally. Global LV systolic function lower limits of normal . LVEF by Kirby's method of disk assessment is mildly reduced (50-55%) . The LVEF was measured using Kirby's bi-plane method of disk . The inferolateral wall appaers hypokinetic. Normal (cardiac index 2-3 L/min/m2) cardiac output state at rest is noted. Grade 3 diastolic dysfunction (marked elevated LA pressure). Left Atrium LA size is severely enlarged (>48 ml/m2) . Right Ventricle RV is severely enlarged. Depressed RV function Right Atrium RA cavity size is mildly enlarged . Aortic Valve Normal AoV structure. Mitral Valve Normal MV structure. Tricuspid Valve A trace of tricuspid regurgitation. Estimated peak systolic PA pressure is 30-35 mmHg . Pulmonic Valve Normal PV structure and function by limited views and Doppler. A trace of pulmonary regurgitation. Aorta Aortic root size (Sinus of Valsalva diameter) is mildly dilated. 4.0 cm Proximal ascending aorta size mildly dilated . 3.7 cm Pericardium Small pericardial effusion is present . IVC/SVC/PA/PV/Pleural The estimated RA pressure by IVC dynamics 5-10mmHg . Chambers/Structures Left Atrium LA Volume: 120.8 ml LA Area: 33.77 cm^2 LA Vol. Index: 54 ml/m^2 Left Ventricle LVIDd: 4.22 cm LV Septum Diastolic: 1.65 cm LV PW Diastolic: 1.75 cm LVEDV Kirby's:300.36 ml LVESV Kirby's:146.15 ml LVEF Kirby's: 51.3 % LVEDVI: 135 ml/m^2 LVESVI: 66 ml/m^2 LVOT Diameter: 2.32 cm Right Atrium RA Vol. (Sngl Plane): 58.84 ml Right Ventricle TAPSE: 1.98 cm Aorta Ao Root S of Vivienne.: 3.99 cm Ascending Aorta: 3.68 cm Doppler/Quantitative Measurements Mitral Valve MV Peak E-Wave: 1.5 m/s MV Peak A-Wave: 1.04 m/s E/A Ratio: 1.43 Peak Gradient: 8.98 mmHg Deceleration Time: 175.1 msec MV Mitch. Peak: Tissue Doppler E' Lateral Velocity: 0.08 m/s E/E': 17.92 Aortic Valve Peak Velocity: 1.94 m/s Mean Velocity: 1.45 m/s Peak Gradient: 15.05 mmHg Mean Gradient: 9.19 mmHg AV Area (continuity): 2.02 cm^2 AV VTI: 40.04 cm AV DVI: 0.48 LVOT Peak Velocity: 0.92 m/s Peak Gradient: 3.36 mmHg Mean Velocity: 0.66 m/s Mean Gradient: 1.99 mmHg LVOT Diameter: 2.32 cm LVOT VTI: 19.13 cm LVOT Area: 4.23 cm^2 LVOT SV:80.83 ml LVOT CO: 6.79 l/min LVOT CI: 3.06 l/min/m^2 Tricuspid Valve TR Velocity: 2.64 m/s TR Gradient: 27.97 mmHg * CT maxillofacial without IV contrast (08/20/2017 10:10 PM) Specimen Performing Laboratory [facility] Narrative FINAL REPORT CT sinuses without contrast 08/20/2017 at 2200 CLINICAL HISTORY: sinusitis COMPARISON: None available TECHNIQUE: Axial noncontrast CT imaging of the sinuses was performed. Axially acquired data were reformatted in coronal and sagittal planes for further analysis. This examination was performed according to our departmental dose optimization program, which includes automated exposure control, adjustment of the mA and/or kV according to patient size, and/or use of iterated reconstruction technique. FINDINGS: There is right frontal and sphenoid sinusitis. There is right tympanomastoid cavity opacification. There is no sinus based mass. There are no concerning anatomic variants. The visualized brain, orbits, and facial soft tissue are without worrisome finding. There are multiple dental caries. IMPRESSION: 1. Right frontal and sphenoid sinusitis. 2. Right otomastoiditis. 3. Dental disease. Signed: Antonio Turcios MD Report Verified Date/Time:08/21/2017 10:50:28 Reading Location: [facility] [id number] Neuro Reading Room Procedure Note Interface, External Ris In - 08/21/2017 10:52 AM CDT FINAL REPORT CT sinuses without contrast 08/20/2017 at 2200 CLINICAL HISTORY: sinusitis COMPARISON: None available TECHNIQUE: Axial noncontrast CT imaging of the sinuses was performed. Axially acquired data were reformatted in coronal and sagittal planes for further analysis. This examination was performed according to our departmental dose optimization program, which includes automated exposure control, adjustment of the mA and/or kV according to patient size, and/or use of iterated reconstruction technique. FINDINGS: There is right frontal and sphenoid sinusitis. There is right tympanomastoid cavity opacification. There is no sinus based mass. There are no concerning anatomic variants. The visualized brain, orbits, and facial soft tissue are without worrisome finding. There are multiple dental caries. IMPRESSION: 1. Right frontal and sphenoid sinusitis. 2. Right otomastoiditis. 3. Dental disease. Signed: Antonio Turcios MD Report Verified Date/Time: 08/21/2017 10:50:28 Reading Location: [address] Neuro Reading Room * CT chest without IV contrast (08/20/2017 10:10 PM) Specimen Performing Laboratory [employer] Narrative FINAL REPORT TECHNIQUE: CT scan of the chest WITHOUT intravenous contrast. Dose modulation, iterative reconstruction, and/or weight-based adjustment of the mA/kV was utilized to reduce the radiation dose to as low as reasonably achievable. INDICATION: 57-year-old man with renal cell carcinoma and hemoptysis. COMPARISON: Chest radiograph from earlier same date. FINDINGS: ABSENCE OF INTRAVENOUS CONTRAST DECREASES SENSITIVITY FOR DETECTION OF FOCAL LESIONS AND VASCULAR PATHOLOGY. LINES/TUBES: Partially visualized central venous catheter in the infrahepatic inferior vena cava. The tip of a left internal jugular chest port terminates in the high right atrium. LUNGS AND AIRWAYS: Central airways are patent. Multiple bilateral subcentimeter pulmonary nodules, consistent with metastases. Peribronchovascular nodular opacities in both lower lobes and left upper lobe. PLEURA: Trace right pleural effusion. HEART AND MEDIASTINUM: The visualized thyroid gland is normal. Multiple enlarged mediastinal and bilateral hilar lymph nodes measure up to 2.3 cm. Enlarged right cardiophrenic/anterior diaphragmatic lymph nodes measure up to 2.5 cm. Cardiomegaly. No pericardial effusion. Atherosclerotic coronary artery calcifications. Prominent main pulmonary artery measures approximately 3.5 cm in diameter. Calcification in the region of the right brachiocephalic vein. SOFT TISSUES AND BONES: Degenerative changes of the visualized spine. Age-indeterminate severe compression deformity of the T3 vertebral body without retropulsion. Prior kyphoplasty at L1. 4.6 x 5.7 cm lytic lesion in the sternal manubrium, the soft tissue mass extends into the anterior mediastinum. 3.1 x 2 cm lytic lesion at the costochondral junction of the right first rib. Cortical thickening with increased trabeculation of the posterior left third rib. UPPER ABDOMEN: Unremarkable. 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 Superimposed pneumonia cannot be excluded. Metastatic mediastinal, hilar, and right cardiophrenic/anterior diaphragmatic lymphadenopathy. Osseous metastases. Prominent pulmonary artery, suggestive of pulmonary hypertension. Signed: Kit Shah MD Report Verified Date/Time:08/21/2017 08:13:09 Reading Location: [facility] Diagnostic Imaging Reading Room - [place] [address] Procedure Note Interface, External Ris In - 08/21/2017 8:15 AM CDT FINAL REPORT TECHNIQUE: CT scan of the chest WITHOUT intravenous contrast. Dose modulation, iterative reconstruction, and/or weight-based adjustment of the mA/kV was utilized to reduce the radiation dose to as low as reasonably achievable. INDICATION: 57-year-old man with renal cell carcinoma and hemoptysis. COMPARISON: Chest radiograph from earlier same date. FINDINGS: ABSENCE OF INTRAVENOUS CONTRAST DECREASES SENSITIVITY FOR DETECTION OF FOCAL LESIONS AND VASCULAR PATHOLOGY. LINES/TUBES: Partially visualized central venous catheter in the infrahepatic inferior vena cava. The tip of a left internal jugular chest port terminates in the high right atrium. LUNGS AND AIRWAYS: Central airways are patent. Multiple bilateral subcentimeter pulmonary nodules, consistent with metastases. Peribronchovascular nodular opacities in both lower lobes and left upper lobe. PLEURA: Trace right pleural effusion. HEART AND MEDIASTINUM: The visualized thyroid gland is normal. Multiple enlarged mediastinal and bilateral hilar lymph nodes measure up to 2.3 cm. Enlarged right cardiophrenic/anterior diaphragmatic lymph nodes measure up to 2.5 cm. Cardiomegaly. No pericardial effusion. Atherosclerotic coronary artery calcifications. Prominent main pulmonary artery measures approximately 3.5 cm in diameter. Calcification in the region of the right brachiocephalic vein. SOFT TISSUES AND BONES: Degenerative changes of the visualized spine. Age-indeterminate severe compression deformity of the T3 vertebral body without retropulsion. Prior kyphoplasty at L1. 4.6 x 5.7 cm lytic lesion in the sternal manubrium, the soft tissue mass extends into the anterior mediastinum. 3.1 x 2 cm lytic lesion at the costochondral junction of the right first rib. Cortical thickening with increased trabeculation of the posterior left third rib. UPPER ABDOMEN: Unremarkable. 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 Superimposed pneumonia cannot be excluded. Metastatic mediastinal, hilar, and right cardiophrenic/anterior diaphragmatic lymphadenopathy. Osseous metastases. Prominent pulmonary artery, suggestive of pulmonary hypertension. Signed: Kit Shah MD Report Verified Date/Time: 08/21/2017 08:13:09 Reading Location: [facility] Diagnostic Imaging Reading Room - [place] [address] * XR chest 1 view portable / bedside (08/20/2017 1:25 PM) Only the most recent of 4 results within the time period is included. Specimen Performing Laboratory [facility] Narrative FINAL REPORT AP chest HISTORY: Hemoptysis COMPARISON: 08/18/2017 IMPRESSION: Cardiomegaly. Diffuse interstitial opacity similar to previous. Trace effusions. No pneumothorax. Signed: Jeffrey Villanueva MD Report Verified Date/Time:08/20/2017 13:41:11 Reading Location: [address] Ortho Consult Reading Room Procedure Note Interface, External Ris In - 08/20/2017 1:43 PM CDT FINAL REPORT AP chest HISTORY: Hemoptysis COMPARISON: 08/18/2017 IMPRESSION: Cardiomegaly. Diffuse interstitial opacity similar to previous. Trace effusions. No pneumothorax. Signed: Jeffrey Villanueva MD Report Verified Date/Time: 08/20/2017 13:41:11 Reading Location: [facility] C013 Ortho Consult Reading Room * Blood culture (08/18/2017 3:32 PM) Only the most recent of 4 results within the time period is included. Component Value Ref Range Result No growth in 5 days Specimen Performing Laboratory Blood - Femoral Catheter [facility] [address] [place] [address] * Hepatitis B surface antigen (08/18/2017 2:36 PM) Only the most recent of 2 results within the time period is included. Component Value Ref Range hepatitis B Surface Ag Nonreactive Nonreactive Specimen Performing Laboratory Blood - Central Venous [facility] Line [address] [place] [address] * CT brain without IV contrast (08/18/2017 5:28 AM) Specimen Performing Laboratory [facility] Narrative FINAL REPORT Clinical history : Concern for metastases to brain Comparison study: None Technique: Contiguous axial images were obtained of the brain without intravenous contrast. This exam was performed according to our departmental dose optimization program, which includes automated exposure control, adjustment of the mA and/or kV according to the patient's size and/or use of the iterative reconstruction technique. FINDINGS: Nonspecific periventricular and subcortical white matter changes suggestive of chronic microangiopathy. No hydrocephalus, mass, midline shift, cisternal effacement, intraparenchymal hemorrhage, or extra axial fluid collection. No acute infarction is identified. Atherosclerotic calcifications of the intracranial circulation. Right mastoid effusion. Multifocal paranasal sinus mucosal thickening without air-fluid levels. Normal orbital contents, skull base, and calvarium. Impression: 1. No acute brain abnormalities. 2. Right mastoid effusion. Signed: Solomon Treviño MD Report Verified Date/Time:08/18/2017 05:43:28 Reading Location: [facility] [id number] Ortho Consult Reading Room Procedure Note Interface, External Ris In - 08/18/2017 5:45 AM CDT FINAL REPORT Clinical history : Concern for metastases to brain Comparison study: None Technique: Contiguous axial images were obtained of the brain without intravenous contrast. This exam was performed according to our departmental dose optimization program, which includes automated exposure control, adjustment of the mA and/or kV according to the patient's size and/or use of the iterative reconstruction technique. FINDINGS: Nonspecific periventricular and subcortical white matter changes suggestive of chronic microangiopathy. No hydrocephalus, mass, midline shift, cisternal effacement, intraparenchymal hemorrhage, or extra axial fluid collection. No acute infarction is identified. Atherosclerotic calcifications of the intracranial circulation. Right mastoid effusion. Multifocal paranasal sinus mucosal thickening without air-fluid levels. Normal orbital contents, skull base, and calvarium. Impression: 1. No acute brain abnormalities. 2. Right mastoid effusion. Signed: Solomon Treviño MD Report Verified Date/Time: 08/18/2017 05:43:28 Reading Location: [facility] C0[facility] Ortho Consult Reading Room * POC-Lactic Acid, Venous (08/18/2017 4:32 AM) Component Value Ref Range POC-Lactic Acid, Venous <0.3 (L)Comment: OUTSIDE MEASURING RANGETESTED AT 0.9 - 1.7 mmol/L [place] [address] Specimen Performing [place] [address] * Gentamicin level, random (07/26/2017 3:35 AM) Only the most recent of 2 results within the time period is included. Component Value Ref Range Gentamicin Rm 3.5 ug/mL Specimen Performing Laboratory Blood [address] [address] Narrative Reference Range: No Normals * Vancomycin level, random (07/25/2017 6:23 AM) Only the most recent of 5 results within the time period is included. Component Value Ref Range Vancomycin Rm 22.0 ug/mL Specimen Performing Laboratory Blood - Line, Venous [address] [address] Narrative Reference Range: No Normals * IR Tunneled Catheter Insertion (07/23/2017 5:25 PM) Specimen Performing Laboratory [facility] Narrative Addendum Begins REPORT STATUS:A Multiple attempts at traversing the superior vena cava were made from the occluded right internal jugular vein documented by ultrasound and from an external jugular vein venogram. 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 The right external jugular terminates in multiple collaterals. The right subclavian vein was never visualized. The patient currently has a left internal jugular Port-A-Cath. 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 Thrombus in the left common iliac vein or proximal inferior vena cava is suspected with reflux in the left femoral vein. Signed: Ca Jack MD Report Verified Date/Time:07/23/2017 17:55:25 Reading Location: [place] [id number] Angio Body Reading Room Addendum Ends FINAL REPORT Tunneled dialysis catheter insertion: Pertinent clinical information: ESRD Modality: Sonography and fluoroscopy Conscious Sedation: Versed 2 mg and fentanyl 100 mcg intravenously During the procedure with conscious sedation, the patient was monitored continuously with pulse oximetry and electrocardiography by the attending physician and registered nurse. Physician Patient face to face intraservice time:20 minutes Antibiotics: Vancomycin Anesthesia:Two percent Lidocaine injected subcutaneously at the insertion site and tunnel. Approach: Left common femoral vein Fluoro time (in minutes) and number of images: 2.3 minutes. 27 images. Total dose 214.3 mGy For maximum sterile barrier protection a mask, cap, sterile gloves, sterile drape, sterile gown, and a cutaneous antiseptic was utilized. Technique:After informed written consent was obtained, the patient was prepped and draped in the usual sterile manner.Access was obtained using sonographic guidance. Ultrasound was utilized to decrease the risk of hematoma and avoid unnecessary punctures. Ultrasound documented the vein to be patent. The left common femoral vein was catheterized utilizing ultrasound guidance and the localization image was saved to PACS.A guide wirewas advanced centrally.A 55 cm Duraflow catheter was advanced with its distal tip terminating in theright atrium as documented by fluoroscopy. The ports were flushed and aspirated easily following placement.A subcutaneous tunnel was created in the left thigh by blunt dissection. The catheter was sutured to the skin to secure its placement.A small femoral incision site was closed using 2.0 chromic suture.Vital signs were monitored throughout the procedure by a nurse, and remained stable.The patient tolerated the procedure well and left the department in the same condition. Results:Spot radiograph of the abdomen demonstrates the new dialysis catheter to lie in the expected position with its tip overlying the right atrium. Impression: Successful, uncomplicated placement of a left femoraltunneled dialysis catheter using ultrasound.Fluoroscopy guidance was also utilized . Signed: Ca Jcak MD Report Verified Date/Time:07/23/2017 17:51:51 Reading Location: [place] [address] Angio Body Reading Room Procedure Note Interface, External Ris In - 07/23/2017 5:57 PM CDT Addendum Begins REPORT STATUS:A Multiple attempts at traversing the superior vena cava were made from the occluded right internal jugular vein documented by ultrasound and from an external jugular vein venogram. 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 The right external jugular terminates in multiple collaterals. The right subclavian vein was never visualized. The patient currently has a left internal jugular Port-A-Cath. 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 Thrombus in the left common iliac vein or proximal inferior vena cava is suspected with reflux in the left femoral vein. Signed: Ca Jack MD Report Verified Date/Time: 07/23/2017 17:55:25 Reading Location: [place] [address] Angio Body Reading Room Addendum Ends FINAL REPORT Tunneled dialysis catheter insertion: Pertinent clinical information: ESRD Modality: Sonography and fluoroscopy Conscious Sedation: Versed 2 mg and fentanyl 100 mcg intravenously During the procedure with conscious sedation, the patient was monitored continuously with pulse oximetry and electrocardiography by the attending physician and registered nurse. Physician Patient face to face intraservice time: 20 minutes Antibiotics: Vancomycin Anesthesia: Two percent Lidocaine injected subcutaneously at the insertion site and tunnel. Approach: Left common femoral vein Fluoro time (in minutes) and number of images: 2.3 minutes. 27 images. Total dose 214.3 mGy For maximum sterile barrier protection a mask, cap, sterile gloves, sterile drape, sterile gown, and a cutaneous antiseptic was utilized. Technique: After informed written consent was obtained, the patient was prepped and draped in the usual sterile manner. Access was obtained using sonographic guidance. Ultrasound was utilized to decrease the risk of hematoma and avoid unnecessary punctures. Ultrasound documented the vein to be patent. The left common femoral vein was catheterized utilizing ultrasound guidance and the localization image was saved to PACS. A guide wire was advanced centrally. A 55 cm Duraflow catheter was advanced with its distal tip terminating in the right atrium as documented by fluoroscopy. The ports were flushed and aspirated easily following placement. A subcutaneous tunnel was created in the left thigh by blunt dissection. The catheter was sutured to the skin to secure its placement. A small femoral incision site was closed using 2.0 chromic suture. Vital signs were monitored throughout the procedure by a nurse, and remained stable. The patient tolerated the procedure well and left the department in the same condition. Results: Spot radiograph of the abdomen demonstrates the new dialysis catheter to lie in the expected position with its tip overlying the right atrium. Impression: Successful, uncomplicated placement of a left femoral tunneled dialysis catheter using ultrasound. Fluoroscopy guidance was also utilized . Signed: Ca Jack MD Report Verified Date/Time: 07/23/2017 17:51:51 Reading Location: [place] [address] Angio Body Reading Room * aPTT (07/23/2017 4:11 AM) Component Value Ref Range PTT 38.5 (H) 22.5 - 36.0 seconds Specimen Performing Laboratory Blood [address] [address] * Prothrombin time/INR (07/23/2017 4:11 AM) Component Value Ref Range Protime 15.2 (H) 11.7 - 14.7 seconds INR 1.2 <=5.9 Specimen Performing Laboratory Blood [address] [address] Narrative RECOMMENDED COUMADIN/WARFARIN INR THERAPY RANGES STANDARD DOSE: 2.0 - 3.0 Includes: PROPHYLAXIS for venous thrombosis, systemic embolization; TREATMENT for venous thrombosis and/or pulmonary embolus. HIGH RISK: Target INR is 2.5-3.5 for patients with mechanical heart valves. * Catheter Tip Culture (07/22/2017 11:06 AM) Component Value Ref Range Result No growth Specimen Performing Laboratory Other - Catheter Tip [address] [address] * XR abdomen / KUB 1 view (07/21/2017 7:44 PM) Specimen Performing Laboratory GE RIS Narrative FINAL REPORT Abdomen, two images HISTORY: Nausea, vomiting, abdominal pain COMPARISON: None IMPRESSION: Stomach distended. Bowel gas pattern appears grossly nonobstructive. There is diffuse clonic stool retention. Status post vertebroplasty at multiple levels. Question subacute right hip fracture. Signed: Jeffrey Villanueva MD Report Verified Date/Time:07/21/2017 20:56:47 Reading Location: [facility] [id number] Consult Reading Room Procedure Note Interface, External Ris In - 07/21/2017 8:58 PM CDT FINAL REPORT Abdomen, two images HISTORY: Nausea, vomiting, abdominal pain COMPARISON: None IMPRESSION: Stomach distended. Bowel gas pattern appears grossly nonobstructive. There is diffuse clonic stool retention. Status post vertebroplasty at multiple levels. Question subacute right hip fracture. Signed: Jeffrey Villanueva MD Report Verified Date/Time: 07/21/2017 20:56:47 Reading Location: [facility] [id number] Consult Reading Room * Lipase (07/21/2017 3:06 PM) Component Value Ref Range Lipase 119 (H) 8 - 78 U/L Specimen Performing Laboratory Blood - Central Venous [facility] [address] [place] [address] * Hepatic function panel (07/21/2017 5:26 AM) Component Value Ref Range Protein, Total 6.4 6.0 - 8.3 gm/dL Albumin 3.2 (L) 3.5 - 5.0 g/dL Total Bilirubin 0.5 0.2 - 1.2 mg/dL Bilirubin, Direct 0.2 0.1 - 0.5 mg/dL Alkaline Phosphatase 132 40 - 150 U/L AST 12 5 - 34 U/L ALT 7 6 - 55 U/L Specimen Performing Laboratory Blood - Central Venous [facility] [address] [place] [address] * Lactic acid, venous, whole blood (07/19/2017 9:19 AM) Component Value Ref Range Lactate, Venous 0.7 0.5 - 2.2 mmol/L Specimen Performing Laboratory Blood - Central Venous [facility] [address] [place] [address] Narrative Effective 06/21/2015: Units/Reference Range Change New: 0.5-2.2 mmol/LPrevious: 5-20 mg/dL after 10/17/2016
--- OUTSIDE RECORDS SUMMARY | 2017-11-20 05:37 | XMS REPORT | Summary of Care ---
Author Author [facility] Organization [facility] Address Unknown Phone Unavailable Encounter [facility](FIN) [id number] Date(s): 08/30/17 - 08/31/17 [facility] [address] [place] [address]- Encounter Diagnosis End stage renal disease (Final) - Discharge Disposition: Group Home Facility Attending Physician: Nilsa Glass MD Admitting Physician: Nilsa Glass MD Vital Signs 1 2 3 Most recent to oldest [Reference Range]: 185.42 cm (08/30/17 11:52 AM) Height 96.7 DegF (08/31/17 11:32 AM) 97.4 DegF (08/31/17 8:01 AM) 97.5 DegF (08/31/17 4:26 AM) Temperature Oral [96.4-99.1 DegF] 148/75 mmHg *HI* (08/31/17 11:32 AM) 163/89 mmHg *HI* (08/31/17 8:01 AM) 149/70 mmHg *HI* (08/31/17 4:26 AM) Blood Pressure [90-140/60-90 mmHg] 16 BRMIN (08/31/17 11:32 AM) 16 BRMIN (08/31/17 8:01 AM) 16 BRMIN (08/31/17 4:26 AM) Respiratory Rate [14-20 BRMIN] 81 bpm (08/31/17 11:32 AM) 71 bpm (08/31/17 8:01 AM) 71 bpm (08/31/17 4:26 AM) Peripheral Pulse Rate [60-100 bpm] 98.438 kg (08/30/17 4:26 PM) 98.591 kg (08/30/17 11:52 AM) 100 kg (08/30/17 3:04 AM) Weight 28.68 m2 (08/30/17 11:52 AM) Body Mass Index Problem List Condition Effective Dates Status Health Status Informant Apnea(Confirmed) Active DM (diabetes Active mellitus)(Confirmed) ESRD (end stage Active renal disease)(Confirmed) Hypertension(Confirm Active ed) Obesity(Confirmed) Active Renal cell Resolved cancer(Confirmed) Allergies, Adverse Reactions, Alerts Substance Reaction Severity Status codeine Nausea Active acetaminophen-codeine Active Medications *ATTN RN please update HWA in adhoc *ATTN RN please update HWA in adhoc, ATTN RN, Drug form: MISC, Route: MISC, Q15Min, 08/30/17 17:15:00 CDT, Duration: 30 day, Stop date: 09/29/17 17:00 :00 CDT Start Date: 08/30/17 Stop Date: 08/30/17 Status: Deleted amitriptyline 50 mg, 2 tab, Route: PO, Drug form: TAB, Bedtime, Dosing Weight 98.591, kg, Start date: 08/30/17 21:00:00 CDT, Duration: 30 day, Stop date: 09/28/17 21:00: 00 CDT Notes: (Same as: Elavil) Start Date: 08/30/17 Stop Date: 08/31/17 Status: Discontinued aspirin 81 mg tablet, chewable 324 mg, Route: PO, Drug form: CHEWTAB, ONCE, Dosing Weight 100, kg, Priority: STAT, Start date: 08/30/17 5:20:00 CDT, Stop date: 08/30/17 5:20:00 CDT Start Date: 08/30/17 Stop Date: 08/30/17 Status: Completed Aspirin Enteric Coated 325 mg, 1 tab, Route: PO, Drug form: ECTAB, Daily, Dosing Weight 98.591, kg, Start date: 08/31/17 9:00:00 CDT, Duration: 30 day, Stop date: 09/29/17 9:00:00 CDT Notes: (Do Not Crush) Do not crush or chew. Start Date: 08/31/17 Stop Date: 08/31/17 Status: Discontinued Dilaudid 0.2 mg, 0.2 mL, Route: IVP, Drug form: INJ, Q4H, PRN Pain Score 7-10, Start date : 08/30/17 17:58:00 CDT, Duration: 30 day, Stop date: 09/29/17 17:57:00 CDT Notes: Same as: Dilaudid Start Date: 08/30/17 Stop Date: 08/31/17 Status: Discontinued DuoNeb inhalation solution 3 ml, Route: NEB, Drug Form: SOLN, Dosing Weight 98.438, kg, PRN, PRN Respiratory Pathway, Start date: 08/31/17 12:36:00 CDT, Duration: 30 day, Stop date: 09/30/17 12:35:00 CDT Notes: (Same as: Duoneb) Start Date: 08/31/17 Stop Date: 08/31/17 Status: Discontinued heparin 5,000 unit, 1 mL, Route: SUB-Q, Drug form: INJ, BID, Dosing Weight 100, kg, Start date: 08/30/17 9:00:00 CDT, Duration: 30 day, Stop date: 09/28/17 17:00: 00 CDT Notes: porcine heparin Start Date: 08/30/17 Stop Date: 08/31/17 Status: Discontinued heparin flush 500 unit, 5 mL, Route: IV Lock, Drug form: SOLN, PRN, Dosing Weight 98.438, kg, PRN Line Flush, Start date: 08/31/17 14:45:00 CDT, Duration: 30 day, Stop date: 09/30/17 14:44:00 CDT Notes: (Same as: Heparin Lock Flush) Start Date: 08/31/17 Stop Date: 08/31/17 Status: Discontinued hydrALAZINE 50 mg oral tablet 50 mg, 1 tab, Route: PO, Drug form: TAB, Q6H, Dosing Weight 100, kg, Start date : 08/30/17 12:00:00 CDT, Duration: 30 day, Stop date: 09/29/17 6:00:00 CDT Notes: (Same as: Apresoline) May interfere w/enteral feedings Take With Food Start Date: 08/30/17 Stop Date: 08/31/17 Status: Discontinued hydrALAZINE 50 mg oral tablet 50 mg=1 tab, PO, TID, # 90 tab, 0 Refill(s), Pharmacy: [facility] Start Date: 08/31/17 Stop Date: 09/30/17 Status: Ordered MiraLax 17 gm, 1 pkt, Route: PO, Drug form: PWDR, BID, Dosing Weight 98.591, kg, Start date: 08/30/17 17:00:00 CDT, Duration: 30 day, Stop date: 09/29/17 9:00:00 CDT Notes: Dissolve in 8 oz of water or juice.(Same as: Miralax) Start Date: 08/30/17 Stop Date: 08/31/17 Status: Discontinued morphine Sulfate 4 mg, Route: IVP, ONCE, Dosing Weight 100, kg, Priority: STAT, Start date: 08/30 4:55:00 CDT, Stop date: 08/30/17 4:55:00 CDT Start Date: 08/30/17 Stop Date: 08/30/17 Status: Completed morphine Sulfate 2 mg, Route: IVP, Q4H, Dosing Weight 98.591, kg, PRN Pain Score 7-10, Start date : 08/30/17 16:20:00 CDT, Duration: 30 day, Stop date: 09/29/17 16:19:00 CDT Start Date: 08/30/17 Stop Date: 08/30/17 Status: Discontinued Flushing 5/325 oral tablet 1 tab, Route: PO, Drug Form: TAB, Dosing Weight 98.591, kg, Q6H, PRN Pain Score 4-6, Start date: 08/30/17 16:20:00 CDT, Duration: 30 day, Stop date: 09/29/17 16 :19:00 CDT Notes: (Same as: Flushing 325/5) Do not exceed 4gm/day of acetaminophen. Start Date: 08/30/17 Stop Date: 08/31/17 Status: Discontinued ondansetron 4 mg, 2 mL, Route: IVP, Drug form: INJ, Q6H, Dosing Weight 100, kg, PRN Nausea & Vomiting, Start date: 08/30/17 8:43:00 CDT, Duration: 30 day, Stop date: 09/29 8:42:00 CDT Notes: (Same as: Clarissa) MEDICATION WASTE Product Size: 4 mgProduct Wasted: ___ mg Start Date: 08/30/17 Stop Date: 08/31/17 Status: Discontinued polyethylene glycol 3350 oral powder for reconstitution 17 gm, PO, Daily, # 527 gm, 0 Refill(s), Pharmacy: [facility] Start Date: 08/31/17 Status: Ordered Proventil HFA 90 mcg/inh inhalation aerosol with adapter 2 puff, INHALER, QID, PRN for wheezing, # 75 gm, 0 Refill(s), Pharmacy: [facility] Start Date: 08/31/17 Status: Ordered Renagel 1,600 mg, 2 tab, Route: PO, Drug form: TAB, TID, Dosing Weight 98.591, kg, Start date: 08/30/17 17:00:00 CDT, Duration: 30 day, Stop date: 09/29/17 13:00: 00 CDT Notes: Same as: Renvela Start Date: 08/30/17 Stop Date: 08/31/17 Status: Discontinued tizanidine 4 mg, 1 tab, Route: PO, Drug form: TAB, TID, Dosing Weight 98.591, kg, Start date: 08/30/17 17:00:00 CDT, Duration: 30 day, Stop date: 09/29/17 13:00:00 CDT Notes: (Same As: Zanaflex) Start Date: 08/30/17 Stop Date: 08/31/17 Status: Discontinued Results ELECTROLYTES Most recent to 1 2 oldest [Reference Range]: Sodium Lvl [135-145 137 mEq/L 139 mEq/L mEq/L] (08/31/17 3:59 AM) (08/30/17 4:37 AM) Potassium Lvl 4.1 mEq/L 4.9 mEq/L [3.5-5.1 mEq/L] (08/31/17 3:59 AM) (08/30/17 4:37 AM) Chloride Lvl [95-109 100 mEq/L 102 mEq/L mEq/L] (08/31/17 3:59 AM) (08/30/17 4:37 AM) CO2 [24-32 mEq/L] 31 mEq/L 29 mEq/L (08/31/17 3:59 AM) (08/30/17 4:37 AM) AGAP [10.0-20.0 10.1 mEq/L 12.9 mEq/L mEq/L] (08/31/17 3:59 AM) (08/30/17 4:37 AM) CHEM PANEL Most recent to 1 2 oldest [Reference Range]: Creatinine Lvl 4.26 mg/dL 4.83 mg/dL [0.50-1.40 mg/dL] *HI* *HI* (08/31/17 3:59 AM) (08/30/17 4:37 AM) eGFR 14 mL/min/1.73m2 1 12 mL/min/1.73m2 2 *NA* *NA* (08/31/17 3:59 AM) (08/30/17 4:37 AM) BUN [7-22 mg/dL] 42 mg/dL 42 mg/dL *HI* *HI* (08/31/17 3:59 AM) (08/30/17 4:37 AM) B/C Ratio [6-25] 10 9 (08/31/17 3:59 AM) (08/30/17 4:37 AM) Glucose Lvl [70-99 88 mg/dL 86 mg/dL mg/dL] (08/31/17 3:59 AM) (08/30/17 4:37 AM) Total Protein 7.0 g/dL 7.2 g/dL [6.4-8.4 g/dL] (08/31/17 3:59 AM) (08/30/17 4:37 AM) Albumin Lvl [3.5-5.0 2.8 g/dL 2.7 g/dL g/dL] *LOW* *LOW* (08/31/17 3:59 AM) (08/30/17 4:37 AM) Globulin [2.7-4.2 4.2 g/dL 4.5 g/dL g/dL] (08/31/17 3:59 AM) *HI* (08/30/17 4:37 AM) A/G Ratio [0.7-1.6] 0.7 0.6 (08/31/17 3:59 AM) *LOW* (08/30/17 4:37 AM) Calcium Lvl 9.8 mg/dL 9.3 mg/dL [8.5-10.5 mg/dL] (08/31/17 3:59 AM) (08/30/17 4:37 AM) Phosphorus [2.5-4.5 3.5 mg/dL mg/dL] (08/30/17 4:37 AM) Magnesium Lvl 2.1 mg/dL 2.0 mg/dL [1.8-2.4 mg/dL] (08/31/17 3:59 AM) (08/30/17 4:37 AM) ALT [0-65 unit/L] 12 unit/L 17 unit/L (08/31/17 3:59 AM) (08/30/17 4:37 AM) AST [0-37 unit/L] 16 unit/L 26 unit/L (08/31/17 3:59 AM) (08/30/17 4:37 AM) Alk Phos [39-136 242 unit/L 230 unit/L unit/L] *HI* *HI* (08/31/17 3:59 AM) (08/30/17 4:37 AM) Bili Total [0.2-1.3 0.5 mg/dL 0.4 mg/dL mg/dL] (08/31/17 3:59 AM) (08/30/17 4:37 AM) 1Result Comment: The eGFR is calculated using [...] estimated BMI. CARDIAC ENZYMES Most recent to [Reference Range]: Total CK [12-191 62 unit/L unit/L] (08/30/17 4:37 AM) CK MB [0.5-3.6 1.3 ng/mL ng/mL] (08/30/17 4:37 AM) CK MB Index 2.1 [0.0-2.5] (08/30/17 4:37 AM) Troponin-I <0.02 ng/mL [0.00-0.40 ng/mL] (08/30/17 4:37 AM) BNP [<=100 pg/mL] 257 pg/mL *HI* (08/30/17 4:37 AM) ANEMIA STUDY Most recent to [Reference Range]: Ferritin Lvl [22-275 1184 ng/mL ng/mL] *HI* (08/30/17 4:37 AM) IMMUNOLOGY Most recent to [Reference Range]: Hep Bs Ag [Negative] Negative (08/30/17 10:00 AM) HEMATOLOGY Most recent to [Reference Range]: WBC [3.7-10.4 K/CMM] 5.6 K/CMM (08/30/17 4:37 AM) RBC [4.70-6.10 2.68 M/CMM M/CMM] *LOW* (08/30/17 4:37 AM) Hgb [14.0-18.0 g/dL] 7.7 g/dL *LOW* (08/30/17 4:37 AM) Hct [42.0-54.0 %] 24.2 % *LOW* (08/30/17 4:37 AM) MCV [80.0-94.0 fL] 90.3 fL (08/30/17 4:37 AM) MCH [27.0-31.0 pg] 28.5 pg (08/30/17 4:37 AM) MCHC [32.0-36.0 31.6 g/dL g/dL] *LOW* (08/30/17 4:37 AM) RDW [11.5-14.5 %] 17.0 % *HI* (08/30/17 4:37 AM) MPV [7.4-10.4 fL] 7.3 fL *LOW* (08/30/17 4:37 AM) Platelet [133-450 213 K/CMM K/CMM] (08/30/17 4:37 AM) Segs [45.0-75.0 %] 76.2 % *HI* (08/30/17 4:37 AM) Lymphocytes 5.4 % [20.0-40.0 %] *LOW* (08/30/17 4:37 AM) Monocytes [2.0-12.0 15.2 % %] *HI* (08/30/17 4:37 AM) Eosinophils [0.0-4.0 2.6 % %] (08/30/17 4:37 AM) Basophils [0.0-1.0 0.6 % %] (08/30/17 4:37 AM) Segs-Bands # 4.3 K/CMM [1.5-8.1 K/CMM] (08/30/17 4:37 AM) Lymphocytes # 0.3 K/CMM [1.0-5.5 K/CMM] *LOW* (08/30/17 4:37 AM) Monocytes # [0.0-0.8 0.9 K/CMM K/CMM] *HI* (08/30/17 4:37 AM) Eosinophils # 0.1 K/CMM [0.0-0.5 K/CMM] (08/30/17 4:37 AM) PT [12.0-14.7 14.9 seconds seconds] *HI* (08/30/17 4:37 AM) INR [0.85-1.17] 1.16 (08/30/17 4:37 AM) PTT [22.9-35.8 40.7 seconds seconds] *HI* (08/30/17 4:37 AM) Immunizations Given and Recorded Vaccine Date Status Refusal Reason influenza virus vaccine, H1N1, live 11/23/15 Given influenza virus vaccine, inactivated 10/18/14 Given Hx pneumococcal vaccine 03/13/14 Given Procedures Procedure Date Related Diagnosis Body Site Status Fracture care1 Completed Kidney excision2 Completed Knee replacement3 Completed 1Left ankle 2Left 3Left knee Social History Social History Type Response Substance Abuse Use: None. Exercise Exercise frequency: 1-2 times/week. Exercise type: Walking. Employment/School Status: Retired. Work/School description: Disabled, per pt.. Alcohol Current, Type Beer. Frequency: 1-2 times per week. Previous treatment: None. Alcohol use interferes with work or home: No. Drinks more than intended: No. Ready to change: No. Smoking Status Light tobacco smoker; Type: Chewing tobacco; Previous treatment: None; Ready to change: No; Concerns about tobacco use in household: No; Exposure to Tobacco Smoke None; Cigarette Smoking Last 365 Days Yes; Reg Smoking Cessation Counseling No; Tobacco use per day: 3; Number of years: 45; Started at age: 12.0; entered on: 08/30/17 Assessment and Plan Extracted from: Title: Short Progress Note Author: Nilsa Glass MD Date: 08/30/17 Short Progress Note Patient seen and examined by night hospitalist on 08/30/17 past midnight. Patient seen and examined by me this morning during dialyis. He did not wnat to talk and wanted to sleep. Seems stable. Has acute on chronic diastolic dysfunction, ESRD. May need more than 1 dialysis session. Will monitor. Patient seen by Nilsa Glass MD Internal Medicine Hospitalist
--- OUTSIDE RECORDS SUMMARY | 2017-11-20 05:37 | XMS REPORT | Summary of Care ---
Author Author [facility] Organization [facility] Address Unknown Phone Unavailable Encounter PHILLIP Whittington(MIMI) [id number] Date(s): 12/04/16 - 12/04/16 [facility] [address] [place] [address]- Discharge Diagnosis: Back pain Discharge Disposition: Home or Self Care Attending Physician: Jarrett Hou MD Vital Signs 1 2 3 Most recent to oldest [Reference Range]: 175.26 cm (12/04/16 11:25 AM) Height 98 DegF (12/04/16 4:19 PM) 98 DegF (12/04/16 11:25 AM) Temperature Oral [96.4-99.1 DegF] 162/83 mmHg *HI* (12/04/16 4:19 PM) 170/84 mmHg *HI* (12/04/16 3:11 PM) 175/113 mmHg *HI* (12/04/16 1:59 PM) Blood Pressure [90-140/60-90 mmHg] 22 BRMIN *HI* (12/04/16 4:19 PM) 26 BRMIN *HI* (12/04/16 3:11 PM) 20 BRMIN (12/04/16 1:59 PM) Respiratory Rate [14-20 BRMIN] 83 bpm (12/04/16 11:25 AM) Peripheral Pulse Rate [60-100 bpm] 127.273 kg (12/04/16 11:25 AM) Weight 41.44 m2 (12/04/16 11:25 AM) Body Mass Index Problem List Condition Effective Dates Status Health Status Informant Apnea(Confirmed) Active DM (diabetes Active mellitus)(Confirmed) ESRD (end stage Active renal disease)(Confirmed) Hypertension(Confirm Active ed) Obesity(Confirmed) Active Renal cell Resolved cancer(Confirmed) Allergies, Adverse Reactions, Alerts Substance Reaction Severity Status acetaminophen-codeine Active NKDA Active Medications Narcan 2 mg, 2 mL, Route: IVP, Drug form: INJ, ONCE, Dosing Weight 127.273, kg, Priority: STAT, Start date: 12/04/16 16:08:00 CDT, Stop date: 12/04/16 16:08:00 CDT Notes: (Same as: Narcan) MEDICATION WASTE Product Size: 2 mgProduct Wasted: ___ mg Start Date: 12/04/16 Stop Date: 12/04/16 Status: Completed Narcan 0.4 mg, 1 mL, Route: IVP, Drug form: INJ, ONCE, Dosing Weight 127.273, kg, Priority: STAT, Start date: 12/04/16 15:40:00 CDT, Stop date: 12/04/16 15:40:00 CDT Notes: Same as Narcan Start Date: 12/04/16 Stop Date: 12/04/16 Status: Completed Saline Flush 0.9% 10 mL, Route: IVP, Drug Form: INJ, Dosing Weight 127.273, kg, PRN, PRN Line Flush, Start date: 12/04/16 13:44:00 CDT, Duration: 30 day, Stop date: 01/03/17 12:43:00 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: Same as: BD Posiflush Sterile Start Date: 12/04/16 Stop Date: 12/04/16 Status: Discontinued Results ELECTROLYTES Most recent to 1 oldest [Reference Range]: Sodium Lvl [135-145 137 mEq/L mEq/L] (12/04/16 12:57 PM) Potassium Lvl 4.4 mEq/L [3.5-5.1 mEq/L] (12/04/16 12:57 PM) Chloride Lvl [95-109 101 mEq/L mEq/L] (12/04/16 12:57 PM) CO2 [24-32 mEq/L] 26 mEq/L (12/04/16 12:57 PM) AGAP [10.0-20.0 14.4 mEq/L mEq/L] (12/04/16 12:57 PM) CHEM PANEL Most recent to 1 oldest [Reference Range]: Creatinine Lvl 5.77 mg/dL [0.50-1.40 mg/dL] *HI* (12/04/16 12:57 PM) eGFR 10 mL/min/1.73m2 1 *NA* (12/04/16 12:57 PM) BUN [7-22 mg/dL] 32 mg/dL *HI* (12/04/16 12:57 PM) B/C Ratio [6-25] 6 (12/04/16 12:57 PM) Glucose Lvl [70-99 67 mg/dL mg/dL] *LOW* (12/04/16 12:57 PM) Total Protein 7.3 g/dL [6.4-8.4 g/dL] (12/04/16 12:57 PM) Albumin Lvl [3.5-5.0 3.2 g/dL g/dL] *LOW* (12/04/16 12:57 PM) Globulin [2.7-4.2 4.1 g/dL g/dL] (12/04/16 12:57 PM) A/G Ratio [0.7-1.6] 0.8 (12/04/16 12:57 PM) Calcium Lvl 9.2 mg/dL [8.5-10.5 mg/dL] (12/04/16 12:57 PM) ALT [0-65 unit/L] 9 unit/L (12/04/16 12:57 PM) AST [0-37 unit/L] <3 unit/L (12/04/16 12:57 PM) Alk Phos [39-136 143 unit/L unit/L] *HI* (12/04/16 12:57 PM) Bili Total [0.2-1.3 0.3 mg/dL mg/dL] (12/04/16 12:57 PM) 1Result Comment: The eGFR is calculated [...] BMI. CARDIAC ENZYMES Most recent to 1 oldest [Reference Range]: Total CK [12-191 100 unit/L unit/L] (12/04/16 12:57 PM) Troponin-I 0.02 ng/mL [0.00-0.40 ng/mL] (12/04/16 12:57 PM) HEMATOLOGY Most recent to 1 oldest [Reference Range]: WBC [3.7-10.4 K/CMM] 6.4 K/CMM (12/04/16 12:57 PM) RBC [4.70-6.10 3.27 M/CMM M/CMM] *LOW* (12/04/16 12:57 PM) Hgb [14.0-18.0 g/dL] 9.7 g/dL *LOW* (12/04/16 12:57 PM) Hct [42.0-54.0 %] 31.0 % *LOW* (12/04/16 12:57 PM) MCV [80.0-94.0 fL] 94.7 fL *HI* (12/04/16 12:57 PM) MCH [27.0-31.0 pg] 29.6 pg (12/04/16 12:57 PM) MCHC [32.0-36.0 31.2 g/dL g/dL] *LOW* (12/04/16 12:57 PM) RDW [11.5-14.5 %] 19.8 % *HI* (12/04/16 12:57 PM) Platelet [133-450 187 K/CMM K/CMM] (12/04/16 12:57 PM) MPV [7.4-10.4 fL] 7.9 fL (12/04/16 12:57 PM) Segs [45.0-75.0 %] 75.8 % *HI* (12/04/16 12:57 PM) Lymphocytes 6.5 % [20.0-40.0 %] *LOW* (12/04/16 12:57 PM) Monocytes [2.0-12.0 17.2 % %] *HI* (12/04/16 12:57 PM) Eosinophils [0.0-4.0 0.1 % %] (12/04/16 12:57 PM) Basophils [0.0-1.0 0.4 % %] (12/04/16 12:57 PM) Segs-Bands # 4.8 K/CMM [1.5-8.1 K/CMM] (12/04/16 12:57 PM) Lymphocytes # 0.4 K/CMM [1.0-5.5 K/CMM] *LOW* (12/04/16 12:57 PM) Monocytes # [0.0-0.8 1.1 K/CMM K/CMM] *HI* (12/04/16 12:57 PM) Immunizations Given and Recorded Vaccine Date Status [...]
--- OUTSIDE RECORDS SUMMARY | 2017-11-20 05:38 | XMS REPORT | Summary of Care ---
Author Author [facility] Organization [facility] Address Unknown Phone Unavailable Encounter PHILLIP Whittington(MIMI) [id number] Date(s): 06/05/16 - 06/05/16 [facility] [address] [place] [address]- Discharge Diagnosis: Chest wall pain Discharge Disposition: Home or Self Care Attending Physician: Jarrett Hou MD Vital Signs 1 2 3 Most recent to oldest [Reference Range]: 185.42 cm (06/05/16 7:06 PM) Height 98.0 DegF (06/05/16 7:06 PM) Temperature Oral [96.4-99.1 DegF] 173/81 mmHg *HI* (06/05/16 9:45 PM) 211/106 mmHg *HI* (06/05/16 8:58 PM) 188/110 mmHg *HI* (06/05/16 8:36 PM) Blood Pressure [90-140/60-90 mmHg] 18 BRMIN (06/05/16 9:45 PM) 18 BRMIN (06/05/16 8:58 PM) 16 BRMIN (06/05/16 8:36 PM) Respiratory Rate [14-20 BRMIN] 76 bpm (06/05/16 7:06 PM) Peripheral Pulse Rate [60-100 bpm] 135 kg (06/05/16 7:06 PM) Weight 39.27 m2 (06/05/16 7:06 PM) Body Mass Index Problem List Condition Effective Dates Status Health Status Informant Apnea(Confirmed) Active DM (diabetes Active mellitus)(Confirmed) ESRD (end stage Active renal disease)(Confirmed) Hypertension(Confirm Active ed) Obesity(Confirmed) Active Renal cell Resolved cancer(Confirmed) Allergies, Adverse Reactions, Alerts Substance Reaction Severity Status acetaminophen-codeine Active NKDA Active Medications aspirin 324 mg, 4 tab, Route: PO, Drug form: CHEWTAB, ONCE, Dosing Weight 135, kg, Priority: STAT, Start date: 06/05/16 19:27:00 CDT, Stop date: 06/05/16 19:27:00 CDT Notes: Take with food. Start Date: 06/05/16 Stop Date: 06/05/16 Status: Completed hydrALAZINE 20 mg, 1 mL, Route: IVP, Drug form: INJ, ONCE, Dosing Weight 135, kg, Priority: STAT, Start date: 06/05/16 21:09:00 CDT, Stop date: 06/05/16 21:09:00 CDT Notes: (Same as: Apresoline)Push over 5 minutes Start Date: 06/05/16 Stop Date: 06/05/16 Status: Completed Saline Flush 0.9% 10 mL, Route: IVP, Drug Form: INJ, Dosing Weight 135, kg, PRN, PRN Line Flush, Start date: 06/05/16 19:27:00 CDT, Duration: 30 day, Stop date: 07/05/16 19:26: 00 CDT Notes: Same as: BD Posiflush Sterile Start Date: 06/05/16 Stop Date: 06/05/16 Status: Discontinued Results ELECTROLYTES Most recent to 1 oldest [Reference Range]: Sodium Lvl [135-145 136 mEq/L mEq/L] (06/05/16 7:30 PM) Potassium Lvl 4.7 mEq/L [3.5-5.1 mEq/L] (06/05/16 7:30 PM) Chloride Lvl [95-109 100 mEq/L mEq/L] (06/05/16 7:30 PM) CO2 [24-32 mEq/L] 21 mEq/L *LOW* (06/05/16 7:30 PM) AGAP [10.0-20.0 19.7 mEq/L mEq/L] (06/05/16 7:30 PM) CHEM PANEL Most recent to 1 oldest [Reference Range]: Creatinine Lvl 7.24 mg/dL [0.50-1.40 mg/dL] *HI* (06/05/16 7:30 PM) eGFR 8 mL/min/1.73m2 1 *NA* (06/05/16 7:30 PM) BUN [7-22 mg/dL] 37 mg/dL *HI* (06/05/16 7:30 PM) B/C Ratio [6-25] 5 *LOW* (06/05/16 7:30 PM) Glucose Lvl [70-99 65 mg/dL mg/dL] *LOW* (06/05/16 7:30 PM) Total Protein 7.8 g/dL [6.4-8.4 g/dL] (06/05/16 7:30 PM) Albumin Lvl [3.5-5.0 3.3 g/dL g/dL] *LOW* (06/05/16 7:30 PM) Globulin [2.7-4.2 4.5 g/dL g/dL] *HI* (06/05/16 7:30 PM) A/G Ratio [0.7-1.6] 0.7 (06/05/16 7:30 PM) Calcium Lvl 9.3 mg/dL [8.5-10.5 mg/dL] (06/05/16 7:30 PM) ALT [0-65 unit/L] 10 unit/L (06/05/16 7:30 PM) AST [0-37 unit/L] 13 unit/L (06/05/16 7:30 PM) Alk Phos [39-136 193 unit/L unit/L] *HI* (06/05/16 7:30 PM) Bili Total [0.2-1.3 0.5 mg/dL mg/dL] (06/05/16 7:30 PM) 1Result Comment: The eGFR is calculated [...] 1 oldest [Reference Range]: Total CK [12-191 104 unit/L unit/L] (06/05/16 7:30 PM) CK MB [0.5-3.6 2.5 ng/mL ng/mL] (06/05/16 7:30 PM) CK MB Index 2.4 [0.0-2.5] (06/05/16 7:30 PM) Troponin-I 0.03 ng/mL [0.00-0.40 ng/mL] (06/05/16 7:30 PM) HEMATOLOGY Most recent to 1 oldest [Reference Range]: WBC [3.7-10.4 K/CMM] 6.8 K/CMM (06/05/16 7:30 PM) RBC [4.70-6.10 4.41 M/CMM M/CMM] *LOW* (06/05/16 7:30 PM) Hgb [14.0-18.0 g/dL] 13.1 g/dL *LOW* (06/05/16 7:30 PM) Hct [42.0-54.0 %] 40.7 % *LOW* (06/05/16 7:30 PM) MCV [80.0-94.0 fL] 92.2 fL (06/05/16 7:30 PM) MCH [27.0-31.0 pg] 29.8 pg (06/05/16 7:30 PM) MCHC [32.0-36.0 32.3 g/dL g/dL] (06/05/16 7:30 PM) RDW [11.5-14.5 %] 14.9 % *HI* (06/05/16 7:30 PM) Platelet [133-450 235 K/CMM K/CMM] (06/05/16 7:30 PM) MPV [7.4-10.4 fL] 8.0 fL (06/05/16 7:30 PM) Segs [45.0-75.0 %] 75.5 % *HI* (06/05/16 7:30 PM) Lymphocytes 8.7 % [20.0-40.0 %] *LOW* (06/05/16 7:30 PM) Monocytes [2.0-12.0 12.8 % %] *HI* (06/05/16 7:30 PM) Eosinophils [0.0-4.0 2.5 % %] (06/05/16 7:30 PM) Basophils [0.0-1.0 0.5 % %] (06/05/16 7:30 PM) Segs-Bands # 5.1 K/CMM [1.5-8.1 K/CMM] (06/05/16 7:30 PM) Lymphocytes # 0.6 K/CMM [1.0-5.5 K/CMM] *LOW* (06/05/16 7:30 PM) Monocytes # [0.0-0.8 0.9 K/CMM K/CMM] *HI* (06/05/16 7:30 PM) Eosinophils # 0.2 K/CMM [0.0-0.5 K/CMM] (06/05/16 7:30 PM) Immunizations Given and Recorded Vaccine Date [...] times per week. Smoking Status Never smoker; Ready to change: No; Concerns about tobacco use in household: No; Exposure to Tobacco Smoke None; Cigarette Smoking Last 365 Days No; Reg Smoking Cessation Counseling No Assessment and Plan No data available for this section
--- OUTSIDE RECORDS SUMMARY | 2017-11-20 05:38 | XMS REPORT ---
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 MAGNESIUM (BEAKER) (test winj=176) 2.0 mg/dL 1.6-2.6 Specimen slightly hemolyzed [id number] 05:12:00* Test Item Value Reference Range Comments PHOSPHORUS (BEAKER) (test ilhj=487) 4.6 mg/dL 2.3-4.7 Specimen slightly hemolyzed CBC W/PLT COUNT & AUTO [id number] 04:41:00* Test Item Value Reference Range Comments WHITE BLOOD CELL COUNT (BEAKER) (test hwwd=234) 4.7 K/ L 3.5-10.5 RED BLOOD CELL COUNT (BEAKER) (test vwzq=004) 2.64 M/ L 4.63-6.08 HEMOGLOBIN (BEAKER) (test nriq=910) 7.4 GM/DL 13.7-17.5 HEMATOCRIT (BEAKER) (test uqhh=337) 25.5 % 40.1-51.0 MEAN CORPUSCULAR VOLUME (BEAKER) (test jxao=935) 96.6 fL 79.0-92.2 MEAN CORPUSCULAR HEMOGLOBIN (BEAKER) (test sybt=894) 28.0 pg 25.7-32.2 MEAN CORPUSCULAR HEMOGLOBIN CONC (BEAKER) (test rhju=681) 29.0 GM/DL 32.3- 36.5 RED CELL DISTRIBUTION WIDTH (BEAKER) (test tfxu=851) 16.5 % 11.6-14.4 PLATELET COUNT (BEAKER) (test shni=937) 201 K/CU MM 150-450 MEAN PLATELET VOLUME (BEAKER) (test lcbh=467) 9.2 fL 9.4-12.4 NUCLEATED RED BLOOD CELLS (BEAKER) (test qnas=852) 0 /100 WBC 0-0 NEUTROPHILS RELATIVE PERCENT (BEAKER) (test bmap=439) 68 % LYMPHOCYTES RELATIVE PERCENT (BEAKER) (test hhbm=015) 7 % MONOCYTES RELATIVE PERCENT (BEAKER) (test mfwi=970) 19 % EOSINOPHILS RELATIVE PERCENT (BEAKER) (test wzag=128) 5 % BASOPHILS RELATIVE PERCENT (BEAKER) (test opdj=780) 1 % NEUTROPHILS ABSOLUTE COUNT (BEAKER) (test uuxl=213) 3.17 K/ L 1.78-5.38 LYMPHOCYTES ABSOLUTE COUNT (BEAKER) (test bwjn=631) 0.34 K/ L 1.32-3.57 MONOCYTES ABSOLUTE COUNT (BEAKER) (test feni=314) 0.88 K/ L 0.30-0.82 EOSINOPHILS ABSOLUTE COUNT (BEAKER) (test hwij=941) 0.24 K/ L 0.04-0.54 BASOPHILS ABSOLUTE COUNT (BEAKER) (test dkvf=774) 0.03 K/ L 0.01-0.08 IMMATURE GRANULOCYTES-RELATIVE PERCENT (BEAKER) (test ouho=7768) 0 % 0-1 BASIC METABOLIC [id number] 06:15:00* Test Item Value Reference Range Comments SODIUM (BEAKER) (test jfkx=832) 134 meq/L 136-145 POTASSIUM (BEAKER) (test pubh=833) 4.6 meq/L 3.5-5.1 CHLORIDE (BEAKER) (test nods=469) 100 meq/L 98-107 CO2 (BEAKER) (test xsnq=856) 24 meq/L 22-29 BLOOD UREA NITROGEN (BEAKER) (test fsaf=311) 47 mg/dL 7-21 CREATININE (BEAKER) (test vhdd=060) 4.35 mg/dL 0.57-1.25 GLUCOSE RANDOM (BEAKER) (test nejj=815) 89 mg/dL 70-105 CALCIUM (BEAKER) (test wqan=645) 10.0 mg/dL 8.4-10.2 EGFR (BEAKER) (test omeq=8039) 17 mL/min/1.73 sq m ESTIMATED GFR IS NOT ACCURATE CREATININE CLEARANCE IN PREDICTING GLOMERULAR FILTRATION RATE. ESTIMATED GFR IS NOT APPLICABLE FOR DIALYSIS PATIENTS. [id number] 06:14:00* Test Item Value Reference Range Comments PHOSPHORUS (BEAKER) (test uwzj=628) 3.9 mg/dL 2.3-4.7 [id number] 06:14:00* Test Item Value Reference Range Comments MAGNESIUM (BEAKER) (test hwmu=378) 1.9 mg/dL 1.6-2.6 CBC W/PLT COUNT & AUTO [id number] 05:19:00* Test Item Value Reference Range Comments WHITE BLOOD CELL COUNT (BEAKER) (test jhtu=998) 5.1 K/ L 3.5-10.5 RED BLOOD CELL COUNT (BEAKER) (test imdo=481) 2.65 M/ L 4.63-6.08 HEMOGLOBIN (BEAKER) (test rmry=193) 7.6 GM/DL 13.7-17.5 HEMATOCRIT (BEAKER) (test duso=158) 25.5 % 40.1-51.0 MEAN CORPUSCULAR VOLUME (BEAKER) (test eeop=318) 96.2 fL 79.0-92.2 MEAN CORPUSCULAR HEMOGLOBIN (BEAKER) (test aqev=019) 28.7 pg 25.7-32.2 MEAN CORPUSCULAR HEMOGLOBIN CONC (BEAKER) (test cdyc=189) 29.8 GM/DL 32.3- 36.5 RED CELL DISTRIBUTION WIDTH (BEAKER) (test bdad=784) 16.6 % 11.6-14.4 PLATELET COUNT (BEAKER) (test wnll=140) 203 K/CU MM 150-450 MEAN PLATELET VOLUME (BEAKER) (test qylt=228) 9.4 fL 9.4-12.4 NUCLEATED RED BLOOD CELLS (BEAKER) (test qhqu=714) 0 /100 WBC 0-0 NEUTROPHILS RELATIVE PERCENT (BEAKER) (test gxqj=906) 69 % LYMPHOCYTES RELATIVE PERCENT (BEAKER) (test gwgw=587) 5 % MONOCYTES RELATIVE PERCENT (BEAKER) (test blnk=065) 20 % EOSINOPHILS RELATIVE PERCENT (BEAKER) (test bswn=060) 4 % BASOPHILS RELATIVE PERCENT (BEAKER) (test qyqm=060) 0 % NEUTROPHILS ABSOLUTE COUNT (BEAKER) (test jhjj=087) 3.53 K/ L 1.78-5.38 LYMPHOCYTES ABSOLUTE COUNT (BEAKER) (test cwnh=123) 0.25 K/ L 1.32-3.57 MONOCYTES ABSOLUTE COUNT (BEAKER) (test oaay=004) 1.03 K/ L 0.30-0.82 EOSINOPHILS ABSOLUTE COUNT (BEAKER) (test scyj=837) 0.22 K/ L 0.04-0.54 BASOPHILS ABSOLUTE COUNT (BEAKER) (test sdck=787) 0.02 K/ L 0.01-0.08 IMMATURE GRANULOCYTES-RELATIVE PERCENT (BEAKER) (test qpfu=6770) 1 % 0-1 TROPONIN [id number] 16:30:00* Test Item Value Reference Range Comments TROPONIN I (BEAKER) (test ogyr=789) 0.02 ng/mL 0.00-0.03 Troponin I (TnI) levels must be interpreted [...] failure, acidosis, acute neurological disease, and persistent tachyarrhythmia.HEPATITIS B SURFACE [id number] 15 :37:00* Test Item Value Reference Range Comments HEPATITIS B SURFACE ANTIGEN (2) (EWELINAMesosphere) (test nwuf=6310) Nonreactive Nonreactive TROPONIN [id number] 09:41:00* Test Item Value Reference Range Comments TROPONIN I (BEAKER) (test simj=763) 0.02 ng/mL 0.00-0.03 Troponin I (TnI) levels must be interpreted [...] failure, acidosis, acute neurological disease, and persistent tachyarrhythmia.CT, BRAIN, WITHOUT [id number] 05 :43:00Reason for exam:->CHEST PAINWhat is the patient's sedation requirement?-> No SedationFINAL REPORT Clinical history : Concern for metastases to brainComparison study: None Technique: Contiguous axial images were [...] effacement, intraparenchymal hemorrhage, or extra axial fluid collection.No acute infarction is identified. Atherosclerotic calcifications of the intracranial circulation. Right mastoid effusion. Multifocal paranasal sinus mucosal thickening without air-fluid levels. Normal orbital contents, skull base, and calvarium. Impression: 1. No acute brain abnormalities. 2. Right mastoid effusion. Signed: Solomon Treviño MDReport Verified Date/Time: 08/18 05:43:28 Reading Location: [facility] C013X Ortho Consult Reading Room - LACTIC ACID, [id number] 04:52:00* Test Item Value Reference Range Comments POC-LACTIC ACID, VENOUS (BEAKER) (test hekh=1473) < mmol/L 0.9-1.7 OUTSIDE MEASURING RANGETESTED AT [facility] [address] [address] CREATINE KINASE (CK), TOTAL AND [id number] 03:54:00* Test Item Value Reference Range Comments CREATINE KINASE TOTAL (BEAKER) (test lcnh=203) 23 U/L 29-200 CREATINE KINASE-MB (BEAKER) (test wqql=396) 2.1 ng/mL 0.0-6.6 CREATINE KINASE-MB INDEX (BEAKER) (test nxjj=116) 9.1 % CK-MB Reference Range:<6.7 Normal6.7-10.0 Borderline>10.0 AbnormalTROPONIN [id number] 03:54:00* Test Item Value Reference Range Comments TROPONIN I (BEAKER) (test bqgv=653) 0.02 ng/mL 0.00-0.03 Troponin I (TnI) levels must be interpreted [...] failure, acidosis, acute neurological disease, and persistent tachyarrhythmia.BASIC METABOLIC [id number] 03:51:00 * Test Item Value Reference Range Comments SODIUM (BEAKER) (test ohko=019) 135 meq/L 136-145 POTASSIUM (BEAKER) (test uinj=448) 5.3 meq/L 3.5-5.1 CHLORIDE (BEAKER) (test rhmv=122) 102 meq/L 98-107 CO2 (BEAKER) (test hgyy=276) 20 meq/L 22-29 BLOOD UREA NITROGEN (BEAKER) (test zvyq=178) 66 mg/dL 7-21 CREATININE (BEAKER) (test maou=965) 5.81 mg/dL 0.57-1.25 GLUCOSE RANDOM (BEAKER) (test jzfn=309) 81 mg/dL 70-105 CALCIUM (BEAKER) (test frtg=161) 10.6 mg/dL 8.4-10.2 EGFR (BEAKER) (test lpol=4624) 12 mL/min/1.73 sq m ESTIMATED GFR IS NOT ACCURATE CREATININE CLEARANCE IN PREDICTING GLOMERULAR FILTRATION RATE. ESTIMATED GFR IS NOT APPLICABLE FOR DIALYSIS PATIENTS. RAD, CHEST, 1 VIEW, NON [id number] 03:36:00Reason for exam:->CHEST PAINShould this be performed at the bedside?->YesFINAL REPORT Comparison exam: 08/03/2017 Coarse bilateral interstitial pulmonary parenchymal pattern and small bilateral nodular densities stable when compared to 08/03/2017. Blunting of the right costophrenic angle redemonstrated. The cardiac size is magnified by the portable technique. Normal mediastinal contours. Left chest port terminates in the superior vena cava. No acute skeletal abnormalities. Normal soft tissues. IMPRESSION: Stable bilateral coarse interstitial and nodular changes in the lungs. No acute abnormality. Signed: Solomon Treviño MDReport Verified Date/Time: 08/18/2017 03:36:14 Reading Location: [place] [id number] Ortho Consult Reading Room W/PLT COUNT & AUTO [id number] 03:34:00* Test Item Value Reference Range Comments WHITE BLOOD CELL COUNT (BEAKER) (test rxuc=641) 6.3 K/ L 3.5-10.5 RED BLOOD CELL COUNT (BEAKER) (test cqxo=578) 2.70 M/ L 4.63-6.08 HEMOGLOBIN (BEAKER) (test akbn=603) 7.6 GM/DL 13.7-17.5 HEMATOCRIT (BEAKER) (test mrqw=899) 25.4 % 40.1-51.0 MEAN CORPUSCULAR VOLUME (BEAKER) (test qbgj=692) 94.1 fL 79.0-92.2 MEAN CORPUSCULAR HEMOGLOBIN (BEAKER) (test pyzx=902) 28.1 pg 25.7-32.2 MEAN CORPUSCULAR HEMOGLOBIN CONC (BEAKER) (test vwjl=222) 29.9 GM/DL 32.3- 36.5 RED CELL DISTRIBUTION WIDTH (BEAKER) (test zcck=306) 16.5 % 11.6-14.4 PLATELET COUNT (BEAKER) (test rdom=046) 223 K/CU MM 150-450 MEAN PLATELET VOLUME (BEAKER) (test vndg=495) 8.9 fL 9.4-12.4 NUCLEATED RED BLOOD CELLS (BEAKER) (test ubbz=294) 0 /100 WBC 0-0 NEUTROPHILS RELATIVE PERCENT (BEAKER) (test hqcv=040) 72 % LYMPHOCYTES RELATIVE PERCENT (BEAKER) (test pnck=715) 5 % MONOCYTES RELATIVE PERCENT (BEAKER) (test jwzi=900) 17 % EOSINOPHILS RELATIVE PERCENT (BEAKER) (test wlbs=518) 6 % BASOPHILS RELATIVE PERCENT (BEAKER) (test uxww=600) 0 % NEUTROPHILS ABSOLUTE COUNT (BEAKER) (test qyif=128) 4.58 K/ L 1.78-5.38 LYMPHOCYTES ABSOLUTE COUNT (BEAKER) (test rdwl=849) 0.31 K/ L 1.32-3.57 MONOCYTES ABSOLUTE COUNT (BEAKER) (test dkjl=119) 1.05 K/ L 0.30-0.82 EOSINOPHILS ABSOLUTE COUNT (BEAKER) (test pxkn=707) 0.35 K/ L 0.04-0.54 BASOPHILS ABSOLUTE COUNT (BEAKER) (test lsgr=730) 0.02 K/ L 0.01-0.08 IMMATURE GRANULOCYTES-RELATIVE PERCENT (BEAKER) (test oqeg=7721) 1 % 0-1 CBC W/PLT COUNT & AUTO [id number] 06:16:00* Test Item Value Reference Range Comments WHITE BLOOD CELL COUNT (BEAKER) (test guuz=694) 5.5 K/ L 3.5-10.5 RED BLOOD CELL COUNT (BEAKER) (test gpmu=391) 2.87 M/ L 4.63-6.08 HEMOGLOBIN (BEAKER) (test qesf=008) 8.0 GM/DL 13.7-17.5 HEMATOCRIT (BEAKER) (test jnme=089) 27.1 % 40.1-51.0 MEAN CORPUSCULAR VOLUME (BEAKER) (test uynb=081) 94.4 fL 79.0-92.2 MEAN CORPUSCULAR HEMOGLOBIN (BEAKER) (test syve=621) 27.9 pg 25.7-32.2 MEAN CORPUSCULAR HEMOGLOBIN CONC (BEAKER) (test tcsb=400) 29.5 GM/DL 32.3- 36.5 RED CELL DISTRIBUTION WIDTH (BEAKER) (test khdd=858) 16.5 % 11.6-14.4 PLATELET COUNT (BEAKER) (test pcsr=202) 226 K/CU MM 150-450 MEAN PLATELET VOLUME (BEAKER) (test ydro=265) 9.7 fL 9.4-12.4 NUCLEATED RED BLOOD CELLS (BEAKER) (test ktsm=069) 0 /100 WBC 0-0 NEUTROPHILS RELATIVE PERCENT (BEAKER) (test tpsx=495) 68 % LYMPHOCYTES RELATIVE PERCENT (BEAKER) (test rxxv=445) 6 % MONOCYTES RELATIVE PERCENT (BEAKER) (test gxql=787) 21 % EOSINOPHILS RELATIVE PERCENT (BEAKER) (test cnme=864) 4 % BASOPHILS RELATIVE PERCENT (BEAKER) (test flnm=365) 1 % NEUTROPHILS ABSOLUTE COUNT (BEAKER) (test fzfp=936) 3.70 K/ L 1.78-5.38 LYMPHOCYTES ABSOLUTE COUNT (BEAKER) (test bqeb=766) 0.33 K/ L 1.32-3.57 MONOCYTES ABSOLUTE COUNT (BEAKER) (test sppp=408) 1.12 K/ L 0.30-0.82 EOSINOPHILS ABSOLUTE COUNT (BEAKER) (test gili=044) 0.24 K/ L 0.04-0.54 BASOPHILS ABSOLUTE COUNT (BEAKER) (test adtu=354) 0.04 K/ L 0.01-0.08 IMMATURE GRANULOCYTES-RELATIVE PERCENT (BEAKER) (test sgly=1491) 0 % 0-1 BASIC METABOLIC [id number] 06:08:00* Test Item Value Reference Range Comments SODIUM (BEAKER) (test pjac=352) 135 meq/L 136-145 POTASSIUM (BEAKER) (test pftr=219) 4.4 meq/L 3.5-5.1 CHLORIDE (BEAKER) (test nhgr=313) 98 meq/L 98-107 CO2 (BEAKER) (test dzlq=357) 27 meq/L 22-29 BLOOD UREA NITROGEN (BEAKER) (test utnp=901) 28 mg/dL 7-21 CREATININE (BEAKER) (test zhqg=073) 4.36 mg/dL 0.57-1.25 GLUCOSE RANDOM (BEAKER) (test dton=651) 85 mg/dL 70-105 CALCIUM (BEAKER) (test sagv=569) 9.8 mg/dL 8.4-10.2 EGFR (BEAKER) (test yfai=2633) 17 mL/min/1.73 sq m ESTIMATED GFR IS NOT ACCURATE CREATININE CLEARANCE IN PREDICTING GLOMERULAR FILTRATION RATE. ESTIMATED GFR IS NOT APPLICABLE FOR DIALYSIS PATIENTS. [id number] 06:05:00* Test Item Value Reference Range Comments PHOSPHORUS (BEAKER) (test bmzq=923) 3.9 mg/dL 2.3-4.7 [id number] 06:05:00* Test Item Value Reference Range Comments MAGNESIUM (BEAKER) (test mfqv=271) 2.0 mg/dL 1.6-2.6 POCT-GLUCOSE [id number] 16:46:00* Test Item Value Reference Range Comments POC-GLUCOSE METER (BEAKER) (test noac=8378) 81 mg/dL 70-110 TESTED AT [facility] [address] [address] CREATINE KINASE (CK), TOTAL AND [id number] 15:43:00* Test Item Value Reference Range Comments CREATINE KINASE TOTAL (BEAKER) (test jybg=479) 25 U/L 29-200 CREATINE KINASE-MB (BEAKER) (test whpa=637) 1.9 ng/mL 0.0-6.6 CREATINE KINASE-MB INDEX (BEAKER) (test honz=677) 7.6 % CK-MB Reference Range:<6.7 Normal6.7-10.0 Borderline>10.0 AbnormalTROPONIN [id number] 15:43:00* Test Item Value Reference Range Comments TROPONIN I (BEAKER) (test vswv=846) 0.03 ng/mL 0.00-0.03 Troponin I (TnI) levels must be interpreted [...] failure, acidosis, acute neurological disease, and persistent tachyarrhythmia.PT/[id number] 09:31:00* Test Item Value Reference Range Comments PROTIME (BEAKER) (test bstw=745) 16.1 seconds 11.7-14.7 INR (BEAKER) (test rmod=865) 1.3 <=5.9 PARTIAL THROMBOPLASTIN TIME (BEAKER) (test njjn=402) 99.0 seconds 22.5-36.0 RECOMMENDED COUMADIN/WARFARIN INR THERAPY RANGESSTANDARD DOSE: 2.0 - 3.0 Includes: PROPHYLAXIS for venous thrombosis, systemic embolization; TREATMENT for venous thrombosis and/or pulmonary embolus.HIGH RISK: Target INR is 2.5-3.5 for patients with mechanical heart valves.BASIC METABOLIC [id number] 09:16: 00* Test Item Value Reference Range Comments SODIUM (BEAKER) (test aapv=461) 135 meq/L 136-145 POTASSIUM (BEAKER) (test seen=578) 4.7 meq/L 3.5-5.1 CHLORIDE (BEAKER) (test ltut=445) 98 meq/L 98-107 CO2 (BEAKER) (test mcyk=361) 26 meq/L 22-29 BLOOD UREA NITROGEN (BEAKER) (test uhfb=332) 35 mg/dL 7-21 CREATININE (BEAKER) (test ehkg=508) 5.03 mg/dL 0.57-1.25 GLUCOSE RANDOM (BEAKER) (test ayvd=593) 88 mg/dL 70-105 CALCIUM (BEAKER) (test jkds=301) 10.2 mg/dL 8.4-10.2 EGFR (BEAKER) (test bukp=1730) 14 mL/min/1.73 sq m ESTIMATED GFR IS NOT ACCURATE CREATININE CLEARANCE IN PREDICTING GLOMERULAR FILTRATION RATE. ESTIMATED GFR IS NOT APPLICABLE FOR DIALYSIS PATIENTS. CBC W/PLT COUNT & AUTO [id number] 09:05:00* Test Item Value Reference Range Comments WHITE BLOOD CELL COUNT (BEAKER) (test sqll=910) 6.9 K/ L 3.5-10.5 RED BLOOD CELL COUNT (BEAKER) (test ceqw=634) 2.93 M/ L 4.63-6.08 HEMOGLOBIN (BEAKER) (test piac=940) 8.3 GM/DL 13.7-17.5 HEMATOCRIT (BEAKER) (test iuca=439) 27.8 % 40.1-51.0 MEAN CORPUSCULAR VOLUME (BEAKER) (test mdjb=659) 94.9 fL 79.0-92.2 MEAN CORPUSCULAR HEMOGLOBIN (BEAKER) (test odkw=223) 28.3 pg 25.7-32.2 MEAN CORPUSCULAR HEMOGLOBIN CONC (BEAKER) (test xarf=673) 29.9 GM/DL 32.3- 36.5 RED CELL DISTRIBUTION WIDTH (BEAKER) (test kakl=548) 16.4 % 11.6-14.4 PLATELET COUNT (BEAKER) (test rhdf=811) 224 K/CU MM 150-450 MEAN PLATELET VOLUME (BEAKER) (test ivbx=616) 9.7 fL 9.4-12.4 NUCLEATED RED BLOOD CELLS (BEAKER) (test pjlx=874) 0 /100 WBC 0-0 NEUTROPHILS RELATIVE PERCENT (BEAKER) (test elza=327) 76 % LYMPHOCYTES RELATIVE PERCENT (BEAKER) (test ygqx=818) 5 % MONOCYTES RELATIVE PERCENT (BEAKER) (test mbgp=730) 16 % EOSINOPHILS RELATIVE PERCENT (BEAKER) (test kkqk=350) 3 % BASOPHILS RELATIVE PERCENT (BEAKER) (test iaaw=589) 0 % NEUTROPHILS ABSOLUTE COUNT (BEAKER) (test yxix=908) 5.20 K/ L 1.78-5.38 LYMPHOCYTES ABSOLUTE COUNT (BEAKER) (test vvpp=192) 0.35 K/ L 1.32-3.57 MONOCYTES ABSOLUTE COUNT (BEAKER) (test ejxr=308) 1.07 K/ L 0.30-0.82 EOSINOPHILS ABSOLUTE COUNT (BEAKER) (test oini=782) 0.18 K/ L 0.04-0.54 BASOPHILS ABSOLUTE COUNT (BEAKER) (test ggas=874) 0.03 K/ L 0.01-0.08 IMMATURE GRANULOCYTES-RELATIVE PERCENT (BEAKER) (test sdth=8029) 0 % 0-1 [id number] 08:51:00* Test Item Value Reference Range Comments MAGNESIUM (BEAKER) (test mubr=389) 1.8 mg/dL 1.6-2.6 CREATINE KINASE (CK), TOTAL AND [id number] 08:51:00* Test Item Value Reference Range Comments CREATINE KINASE TOTAL (EWELINAAKER) (test yhxz=535) 24 U/L 29-200 CREATINE KINASE-MB (BEAKER) (test yrvp=683) 1.6 ng/mL 0.0-6.6 CREATINE KINASE-MB INDEX (BEAKER) (test asho=375) 6.7 % CK-MB Reference Range:<6.7 Normal6.7-10.0 Borderline>10.0 AbnormalTROPONIN [id number] 08:51:00* Test Item Value Reference Range Comments TROPONIN I (EWELINAAKER) (test dzgw=810) 0.02 ng/mL 0.00-0.03 Troponin I (TnI) levels must be interpreted [...] failure, acidosis, acute neurological disease, and persistent tachyarrhythmia.B-TYPE NATRIURETIC FACTOR (BNP) 08:51:00* Test Item Value Reference Range Comments B-TYPE NATRIURETIC PEPTIDE (GENNY) (test bhru=041) 1258 pg/mL 0-100 RAD, CHEST, 1 VIEW, NON [id number] 08:50:00Reason for exam:->SHORTNESS OF BREATHFINAL REPORT TECHNIQUE: Frontal view of the chest. INDICATION: 57-year-old man with shortness of breath. COMPARISON: Chest radiograph 07/21/2017. FINDINGS:Evaluation is limited secondary to patient rotation. LINES/TUBES: Unchanged left internal jugular chest port. Interval removal of the right internal jugular dialysis catheter. LUNGS: Central pulmonary venous congestion with interstitial and airspace opacities bilaterally. PLEURA: Small right pleural effusion. The left costophrenic angle was not included. No pneumothorax. HEART AND MEDIASTINUM: The cardiomediastinal silhouette is prominent, but not significantly changed. Ectatic/tortuous thoracic aorta. SOFT TISSUES AND BONES: Unremarkable. IMPRESSION:Suspected volume overload/congestive heart failure. Signed: Likhari, Gauruv MDReport Verified Date/Time: 08/03/2017 08:50:43 Reading Location: [facility] B1 C013Y CT Body Reading Room Electronically signed by: KIT SHAH MD on 2017 08:50 AM BLOOD [id number] 23:22:00* Test Item Value Reference Range Comments CULTURE (BEAKER) (test kwfr=1317) No growth in 5 days GENTAMICIN LEVEL, [id number] 06:41:00* Test Item Value Reference Range Comments GENTAMICIN RANDOM (BEAKER) (test azlg=173) 3.5 ug/mL Reference Range: No NormalsBASIC METABOLIC [id number] 06:39:00* Test Item Value Reference Range Comments SODIUM (BEAKER) (test nuco=128) 137 meq/L 136-145 POTASSIUM (BEAKER) (test cgac=213) 4.2 meq/L 3.5-5.1 CHLORIDE (BEAKER) (test mhez=397) 99 meq/L 98-107 CO2 (BEAKER) (test qbjb=019) 24 meq/L 22-29 BLOOD UREA NITROGEN (BEAKER) (test lvkt=982) 21 mg/dL 7-21 CREATININE (BEAKER) (test crzq=767) 3.41 mg/dL 0.57-1.25 GLUCOSE RANDOM (BEAKER) (test wyqu=933) 85 mg/dL 70-105 CALCIUM (BEAKER) (test hgiq=474) 9.5 mg/dL 8.4-10.2 EGFR (BEAKER) (test iopx=9700) 23 mL/min/1.73 sq m ESTIMATED GFR IS NOT ACCURATE CREATININE CLEARANCE IN PREDICTING GLOMERULAR FILTRATION RATE. ESTIMATED GFR IS NOT APPLICABLE FOR DIALYSIS PATIENTS. CBC W/PLT COUNT & AUTO [id number] 04:35:00* Test Item Value Reference Range Comments WHITE BLOOD CELL COUNT (BEAKER) (test uxsp=598) 4.9 K/ L 3.5-10.5 RED BLOOD CELL COUNT (BEAKER) (test gnvf=152) 2.75 M/ L 4.63-6.08 HEMOGLOBIN (BEAKER) (test spdu=027) 7.7 GM/DL 13.7-17.5 HEMATOCRIT (BEAKER) (test jhis=724) 26.6 % 40.1-51.0 MEAN CORPUSCULAR VOLUME (BEAKER) (test utcv=407) 96.7 fL 79.0-92.2 MEAN CORPUSCULAR HEMOGLOBIN (BEAKER) (test upmv=125) 28.0 pg 25.7-32.2 MEAN CORPUSCULAR HEMOGLOBIN CONC (BEAKER) (test hoxq=109) 28.9 GM/DL 32.3- 36.5 RED CELL DISTRIBUTION WIDTH (BEAKER) (test xugd=015) 16.8 % 11.6-14.4 PLATELET COUNT (BEAKER) (test qzgr=788) 180 K/CU MM 150-450 MEAN PLATELET VOLUME (BEAKER) (test uppv=999) 9.8 fL 9.4-12.4 NUCLEATED RED BLOOD CELLS (BEAKER) (test kstd=584) 0 /100 WBC 0-0 NEUTROPHILS RELATIVE PERCENT (BEAKER) (test uhqk=338) 71 % LYMPHOCYTES RELATIVE PERCENT (BEAKER) (test fwye=506) 6 % MONOCYTES RELATIVE PERCENT (BEAKER) (test ihdk=480) 19 % EOSINOPHILS RELATIVE PERCENT (BEAKER) (test nyxw=076) 4 % BASOPHILS RELATIVE PERCENT (BEAKER) (test lkhx=316) 0 % NEUTROPHILS ABSOLUTE COUNT (BEAKER) (test tazv=038) 3.47 K/ L 1.78-5.38 LYMPHOCYTES ABSOLUTE COUNT (BEAKER) (test dweb=354) 0.27 K/ L 1.32-3.57 MONOCYTES ABSOLUTE COUNT (BEAKER) (test oijd=421) 0.90 K/ L 0.30-0.82 EOSINOPHILS ABSOLUTE COUNT (BEAKER) (test pjel=996) 0.17 K/ L 0.04-0.54 BASOPHILS ABSOLUTE COUNT (BEAKER) (test kvzs=260) 0.01 K/ L 0.01-0.08 IMMATURE GRANULOCYTES-RELATIVE PERCENT (BEAKER) (test opfu=5894) 1 % 0-1 CATHETER TIP [id number] 09:56:00* Test Item Value Reference Range Comments CULTURE (BEAKER) (test ncwg=5785) No growth GENTAMICIN LEVEL, [id number] 09:50:00* Test Item Value Reference Range Comments GENTAMICIN RANDOM (BEAKER) (test fpab=715) 7.8 ug/mL Reference Range: No NormalsBASIC METABOLIC [id number] 07:26:00* Test Item Value Reference Range Comments SODIUM (BEAKER) (test fuzp=927) 137 meq/L 136-145 POTASSIUM (BEAKER) (test yxlq=921) 4.8 meq/L 3.5-5.1 CHLORIDE (BEAKER) (test yspq=433) 100 meq/L 98-107 CO2 (BEAKER) (test vdqa=750) 27 meq/L 22-29 BLOOD UREA NITROGEN (BEAKER) (test qglj=196) 37 mg/dL 7-21 CREATININE (BEAKER) (test ncrd=939) 4.99 mg/dL 0.57-1.25 GLUCOSE RANDOM (BEAKER) (test pver=707) 89 mg/dL 70-105 CALCIUM (BEAKER) (test tgpq=780) 10.3 mg/dL 8.4-10.2 EGFR (BEAKER) (test awac=1643) 15 mL/min/1.73 sq m ESTIMATED GFR IS NOT ACCURATE CREATININE CLEARANCE IN PREDICTING GLOMERULAR FILTRATION RATE. ESTIMATED GFR IS NOT APPLICABLE FOR DIALYSIS PATIENTS. VANCOMYCIN LEVEL, [id number] 07:17:00* Test Item Value Reference Range Comments VANCOMYCIN RANDOM (BEAKER) (test kqzp=866) 22.0 ug/mL Reference Range: No NormalsCBC W/PLT COUNT & AUTO [id number] 06:43: 00* Test Item Value Reference Range Comments WHITE BLOOD CELL COUNT (BEAKER) (test unmf=885) 5.8 K/ L 3.5-10.5 RED BLOOD CELL COUNT (BEAKER) (test nsko=934) 2.74 M/ L 4.63-6.08 HEMOGLOBIN (BEAKER) (test gqcj=129) 7.9 GM/DL 13.7-17.5 HEMATOCRIT (BEAKER) (test gszq=793) 26.8 % 40.1-51.0 MEAN CORPUSCULAR VOLUME (BEAKER) (test lkxy=927) 97.8 fL 79.0-92.2 MEAN CORPUSCULAR HEMOGLOBIN (BEAKER) (test qtad=739) 28.8 pg 25.7-32.2 MEAN CORPUSCULAR HEMOGLOBIN CONC (BEAKER) (test drqt=218) 29.5 GM/DL 32.3- 36.5 RED CELL DISTRIBUTION WIDTH (BEAKER) (test qssm=546) 17.2 % 11.6-14.4 PLATELET COUNT (BEAKER) (test lvvc=184) 193 K/CU MM 150-450 MEAN PLATELET VOLUME (BEAKER) (test bodu=957) 9.2 fL 9.4-12.4 NUCLEATED RED BLOOD CELLS (BEAKER) (test ynnk=701) 0 /100 WBC 0-0 NEUTROPHILS RELATIVE PERCENT (BEAKER) (test emfx=690) 78 % LYMPHOCYTES RELATIVE PERCENT (BEAKER) (test wcnq=002) 4 % MONOCYTES RELATIVE PERCENT (BEAKER) (test bqzn=884) 15 % EOSINOPHILS RELATIVE PERCENT (BEAKER) (test idoy=436) 2 % BASOPHILS RELATIVE PERCENT (BEAKER) (test zvsp=908) 0 % NEUTROPHILS ABSOLUTE COUNT (BEAKER) (test xpeu=732) 4.51 K/ L 1.78-5.38 LYMPHOCYTES ABSOLUTE COUNT (BEAKER) (test wkwn=974) 0.25 K/ L 1.32-3.57 MONOCYTES ABSOLUTE COUNT (BEAKER) (test jknq=138) 0.87 K/ L 0.30-0.82 EOSINOPHILS ABSOLUTE COUNT (BEAKER) (test nglg=069) 0.13 K/ L 0.04-0.54 BASOPHILS ABSOLUTE COUNT (BEAKER) (test nutq=999) 0.02 K/ L 0.01-0.08 IMMATURE GRANULOCYTES-RELATIVE PERCENT (BEAKER) (test zrix=2382) 1 % 0-1 BLOOD [id number] 18:00:00* Test Item Value Reference Range Comments CULTURE (BEAKER) (test hwmq=2578) No growth in 5 days POCT-GLUCOSE [id number] 17:52:00* Test Item Value Reference Range Comments POC-GLUCOSE METER (BEAKER) (test gqke=4099) 140 mg/dL 70-110 TESTED AT [facility] [address] [facility] [id number] POCT-GLUCOSE [id number] 08:15:00* Test Item Value Reference Range Comments POC-GLUCOSE METER (BEAKER) (test yxov=5705) 102 mg/dL 70-110 TESTED AT [place] [id number] [facility] [id number] BASIC METABOLIC [id number] 06:50:00* Test Item Value Reference Range Comments SODIUM (BEAKER) (test bttc=129) 139 meq/L 136-145 POTASSIUM (BEAKER) (test etcf=848) 4.5 meq/L 3.5-5.1 CHLORIDE (BEAKER) (test xhsh=765) 105 meq/L 98-107 CO2 (BEAKER) (test btxu=166) 24 meq/L 22-29 BLOOD UREA NITROGEN (BEAKER) (test lkzq=369) 23 mg/dL 7-21 CREATININE (BEAKER) (test gxgr=180) 3.37 mg/dL 0.57-1.25 GLUCOSE RANDOM (BEAKER) (test lipr=121) 89 mg/dL 70-105 CALCIUM (BEAKER) (test fkwg=807) 9.8 mg/dL 8.4-10.2 EGFR (BEAKER) (test hjoy=4853) 23 mL/min/1.73 sq m ESTIMATED GFR IS NOT ACCURATE CREATININE CLEARANCE IN PREDICTING GLOMERULAR FILTRATION RATE. ESTIMATED GFR IS NOT APPLICABLE FOR DIALYSIS PATIENTS. CBC W/PLT COUNT & AUTO [id number] 06:43:00* Test Item Value Reference Range Comments WHITE BLOOD CELL COUNT (BEAKER) (test bysa=297) 7.0 K/ L 3.5-10.5 RED BLOOD CELL COUNT (BEAKER) (test velq=957) 2.79 M/ L 4.63-6.08 HEMOGLOBIN (BEAKER) (test mvxm=788) 7.9 GM/DL 13.7-17.5 HEMATOCRIT (BEAKER) (test prgr=798) 27.2 % 40.1-51.0 MEAN CORPUSCULAR VOLUME (BEAKER) (test eafi=555) 97.5 fL 79.0-92.2 MEAN CORPUSCULAR HEMOGLOBIN (BEAKER) (test zpot=822) 28.3 pg 25.7-32.2 MEAN CORPUSCULAR HEMOGLOBIN CONC (BEAKER) (test mrmw=303) 29.0 GM/DL 32.3- 36.5 RED CELL DISTRIBUTION WIDTH (BEAKER) (test zdju=150) 17.2 % 11.6-14.4 PLATELET COUNT (BEAKER) (test vois=787) 194 K/CU MM 150-450 MEAN PLATELET VOLUME (BEAKER) (test cjqj=231) 9.5 fL 9.4-12.4 NUCLEATED RED BLOOD CELLS (BEAKER) (test zluo=636) 0 /100 WBC 0-0 NEUTROPHILS RELATIVE PERCENT (BEAKER) (test swnq=495) 82 % LYMPHOCYTES RELATIVE PERCENT (BEAKER) (test kett=496) 3 % MONOCYTES RELATIVE PERCENT (BEAKER) (test mucs=981) 13 % EOSINOPHILS RELATIVE PERCENT (BEAKER) (test irik=474) 2 % BASOPHILS RELATIVE PERCENT (BEAKER) (test ocyj=362) 0 % NEUTROPHILS ABSOLUTE COUNT (BEAKER) (test mbsq=475) 5.73 K/ L 1.78-5.38 LYMPHOCYTES ABSOLUTE COUNT (BEAKER) (test bdid=504) 0.19 K/ L 1.32-3.57 MONOCYTES ABSOLUTE COUNT (BEAKER) (test hdsj=533) 0.89 K/ L 0.30-0.82 EOSINOPHILS ABSOLUTE COUNT (BEAKER) (test ikdc=995) 0.15 K/ L 0.04-0.54 BASOPHILS ABSOLUTE COUNT (BEAKER) (test fths=713) 0.01 K/ L 0.01-0.08 IMMATURE GRANULOCYTES-RELATIVE PERCENT (BEAKER) (test astt=1212) 1 % 0-1 [id number] 06:43:00* Test Item Value Reference Range Comments PHOSPHORUS (BEAKER) (test uahg=903) 3.4 mg/dL 2.3-4.7 ANG, TUNNELED CATHETER [id number] 17:55:00Reason for exam:->new tunneled dialysis catheter placement- thanksAddendum BeginsREPORT STATUS:A Multiple attempts at traversing the superior [...] the left femoral vein. Signed: Ca Jack MDReport Verified Date/Time: 07/2017 17:55:25 Reading Location: [place] [id number] Angio Body Reading RoomAddendum EndsFINAL REPORT Tunneled dialysis catheter insertion: Pertinent clinical information: ESRD Modality: Sonography and fluoroscopy Conscious Sedation: Versed 2 mg and fentanyl 100 mcg intravenouslyDuring the procedure with conscious sedation, the patient [...] was also utilized . Signed: Ca Jack Verified Date /Time: 07/23/2017 17:51:51 Reading Location: [place] [address] Angio Body Reading Room -GLUCOSE [id number] 07:59:00* Test Item Value Reference Range Comments POC-GLUCOSE METER (BEAKER) (test snnk=8122) 106 mg/dL 70-110 TESTED AT [address] [address] BASIC METABOLIC [id number] 05:49:00* Test Item Value Reference Range Comments SODIUM (BEAKER) (test ijol=871) 138 meq/L 136-145 POTASSIUM (BEAKER) (test wrkj=388) 4.8 meq/L 3.5-5.1 CHLORIDE (BEAKER) (test toxi=438) 105 meq/L 98-107 CO2 (BEAKER) (test krfp=769) 21 meq/L 22-29 BLOOD UREA NITROGEN (BEAKER) (test ewqi=646) 38 mg/dL 7-21 CREATININE (BEAKER) (test llvy=450) 5.41 mg/dL 0.57-1.25 GLUCOSE RANDOM (BEAKER) (test fudr=425) 89 mg/dL 70-105 CALCIUM (BEAKER) (test vjff=068) 9.5 mg/dL 8.4-10.2 EGFR (BEAKER) (test ipbs=5938) 13 mL/min/1.73 sq m ESTIMATED GFR IS NOT ACCURATE CREATININE CLEARANCE IN PREDICTING GLOMERULAR FILTRATION RATE. ESTIMATED GFR IS NOT APPLICABLE FOR DIALYSIS PATIENTS. VANCOMYCIN LEVEL, [id number] 05:46:00* Test Item Value Reference Range Comments VANCOMYCIN RANDOM (BEAKER) (test zqrh=710) 17.9 ug/mL Reference Range: No NormalsPROTHROMBIN TIME/[id number] 05:09:00* Test Item Value Reference Range Comments PROTIME (BEAKER) (test uyrg=798) 15.2 seconds 11.7-14.7 INR (BEAKER) (test nrjn=063) 1.2 <=5.9 RECOMMENDED COUMADIN/WARFARIN INR THERAPY RANGESSTANDARD DOSE: 2.0 - 3.0 Includes: PROPHYLAXIS for venous thrombosis, systemic embolization; TREATMENT for venous thrombosis and/or pulmonary embolus.HIGH RISK: Target INR is 2.5-3.5 for patients with mechanical heart valves.[id number] 05:09:00* Test Item Value Reference Range Comments PARTIAL THROMBOPLASTIN TIME (BEAKER) (test kazr=719) 38.5 seconds 22.5-36.0 CBC W/PLT COUNT & AUTO [id number] 05:06:00* Test Item Value Reference Range Comments WHITE BLOOD CELL COUNT (BEAKER) (test dxvy=837) 4.8 K/ L 3.5-10.5 RED BLOOD CELL COUNT (BEAKER) (test qvah=999) 2.70 M/ L 4.63-6.08 HEMOGLOBIN (BEAKER) (test bbtl=239) 7.7 GM/DL 13.7-17.5 HEMATOCRIT (BEAKER) (test bmuk=196) 26.1 % 40.1-51.0 MEAN CORPUSCULAR VOLUME (BEAKER) (test wwip=268) 96.7 fL 79.0-92.2 MEAN CORPUSCULAR HEMOGLOBIN (BEAKER) (test cdhh=499) 28.5 pg 25.7-32.2 MEAN CORPUSCULAR HEMOGLOBIN CONC (BEAKER) (test wrmb=965) 29.5 GM/DL 32.3- 36.5 RED CELL DISTRIBUTION WIDTH (BEAKER) (test uyfu=282) 17.2 % 11.6-14.4 PLATELET COUNT (BEAKER) (test dwwu=658) 191 K/CU MM 150-450 MEAN PLATELET VOLUME (BEAKER) (test qzbl=130) 9.5 fL 9.4-12.4 NUCLEATED RED BLOOD CELLS (BEAKER) (test yyuz=405) 0 /100 WBC 0-0 NEUTROPHILS RELATIVE PERCENT (BEAKER) (test zbfy=037) 74 % LYMPHOCYTES RELATIVE PERCENT (BEAKER) (test yafm=323) 5 % MONOCYTES RELATIVE PERCENT (BEAKER) (test ieks=041) 17 % EOSINOPHILS RELATIVE PERCENT (BEAKER) (test gzaf=691) 3 % BASOPHILS RELATIVE PERCENT (BEAKER) (test bfhu=554) 0 % NEUTROPHILS ABSOLUTE COUNT (BEAKER) (test nhtf=868) 3.51 K/ L 1.78-5.38 LYMPHOCYTES ABSOLUTE COUNT (BEAKER) (test okjz=523) 0.24 K/ L 1.32-3.57 MONOCYTES ABSOLUTE COUNT (BEAKER) (test hhxr=662) 0.83 K/ L 0.30-0.82 EOSINOPHILS ABSOLUTE COUNT (BEAKER) (test rlkl=113) 0.16 K/ L 0.04-0.54 BASOPHILS ABSOLUTE COUNT (BEAKER) (test gqah=258) 0.01 K/ L 0.01-0.08 IMMATURE GRANULOCYTES-RELATIVE PERCENT (BEAKER) (test mlwf=8912) 0 % 0-1 POCT-GLUCOSE [id number] 18:30:00* Test Item Value Reference Range Comments POC-GLUCOSE METER (BEAKER) (test tjnf=5619) 158 mg/dL 70-110 TESTED AT [facility] [address] [facility] [address] POCT-GLUCOSE [id number] 12:18:00* Test Item Value Reference Range Comments POC-GLUCOSE METER (BEAKER) (test zvzr=8225) 176 mg/dL 70-110 TESTED AT [address] [address] PT/[id number] 08:07:00* Test Item Value Reference Range Comments PROTIME (BEAKER) (test xjcz=852) 15.6 seconds 11.7-14.7 INR (BEAKER) (test smpf=149) 1.2 <=5.9 PARTIAL THROMBOPLASTIN TIME (BEAKER) (test gzdo=718) 39.4 seconds 22.5-36.0 RECOMMENDED COUMADIN/WARFARIN INR THERAPY RANGESSTANDARD DOSE: 2.0 - 3.0 Includes: PROPHYLAXIS for venous thrombosis, systemic embolization; TREATMENT for venous thrombosis and/or pulmonary embolus.HIGH RISK: Target INR is 2.5-3.5 for patients with mechanical heart valves.POCT-GLUCOSE [id number] 07:56:00 * Test Item Value Reference Range Comments POC-GLUCOSE METER (BEAKER) (test rzbb=0956) 130 mg/dL 70-110 TESTED AT [address] [address] BASIC METABOLIC [id number] 06:47:00* Test Item Value Reference Range Comments SODIUM (BEAKER) (test qcgt=867) 141 meq/L 136-145 POTASSIUM (BEAKER) (test kqip=031) 4.2 meq/L 3.5-5.1 CHLORIDE (BEAKER) (test eoiq=849) 103 meq/L 98-107 CO2 (BEAKER) (test itqp=675) 27 meq/L 22-29 BLOOD UREA NITROGEN (BEAKER) (test itbk=187) 28 mg/dL 7-21 CREATININE (BEAKER) (test ugrx=517) 4.23 mg/dL 0.57-1.25 GLUCOSE RANDOM (BEAKER) (test nsec=578) 88 mg/dL 70-105 CALCIUM (BEAKER) (test sbbo=214) 9.6 mg/dL 8.4-10.2 EGFR (BEAKER) (test mrax=6547) 18 mL/min/1.73 sq m ESTIMATED GFR IS NOT ACCURATE CREATININE CLEARANCE IN PREDICTING GLOMERULAR FILTRATION RATE. ESTIMATED GFR IS NOT APPLICABLE FOR DIALYSIS PATIENTS. VANCOMYCIN LEVEL, [id number] 06:33:00* Test Item Value Reference Range Comments VANCOMYCIN RANDOM (BEAKER) (test mcgm=290) 20.7 ug/mL Reference Range: No NormalsCBC W/PLT COUNT & AUTO [id number] 06:21: 00* Test Item Value Reference Range Comments WHITE BLOOD CELL COUNT (BEAKER) (test rnuh=568) 5.2 K/ L 3.5-10.5 RED BLOOD CELL COUNT (BEAKER) (test gpve=912) 2.87 M/ L 4.63-6.08 HEMOGLOBIN (BEAKER) (test csmu=561) 8.1 GM/DL 13.7-17.5 HEMATOCRIT (BEAKER) (test azri=365) 27.8 % 40.1-51.0 MEAN CORPUSCULAR VOLUME (BEAKER) (test wupe=604) 96.9 fL 79.0-92.2 MEAN CORPUSCULAR HEMOGLOBIN (BEAKER) (test bzbx=511) 28.2 pg 25.7-32.2 MEAN CORPUSCULAR HEMOGLOBIN CONC (BEAKER) (test dmbm=729) 29.1 GM/DL 32.3- 36.5 RED CELL DISTRIBUTION WIDTH (BEAKER) (test axgf=581) 16.8 % 11.6-14.4 PLATELET COUNT (BEAKER) (test urex=438) 203 K/CU MM 150-450 MEAN PLATELET VOLUME (BEAKER) (test amhm=296) 9.7 fL 9.4-12.4 NUCLEATED RED BLOOD CELLS (BEAKER) (test cldj=606) 0 /100 WBC 0-0 NEUTROPHILS RELATIVE PERCENT (BEAKER) (test ivmx=275) 77 % LYMPHOCYTES RELATIVE PERCENT (BEAKER) (test ytkj=994) 4 % MONOCYTES RELATIVE PERCENT (BEAKER) (test cuuq=961) 17 % EOSINOPHILS RELATIVE PERCENT (BEAKER) (test miii=142) 2 % BASOPHILS RELATIVE PERCENT (BEAKER) (test zfsg=304) 0 % NEUTROPHILS ABSOLUTE COUNT (BEAKER) (test sqwo=558) 4.00 K/ L 1.78-5.38 LYMPHOCYTES ABSOLUTE COUNT (BEAKER) (test vcld=053) 0.19 K/ L 1.32-3.57 MONOCYTES ABSOLUTE COUNT (BEAKER) (test ykon=308) 0.90 K/ L 0.30-0.82 EOSINOPHILS ABSOLUTE COUNT (BEAKER) (test pgoh=238) 0.10 K/ L 0.04-0.54 BASOPHILS ABSOLUTE COUNT (BEAKER) (test yeuk=856) 0.01 K/ L 0.01-0.08 IMMATURE GRANULOCYTES-RELATIVE PERCENT (BEAKER) (test ejvc=8940) 1 % 0-1 POCT-GLUCOSE [id number] 23:05:00* Test Item Value Reference Range Comments POC-GLUCOSE METER (BEAKER) (test pnoo=6271) 117 mg/dL 70-110 TESTED AT [facility] [address] [facility] [address] RAD, CHEST, 1 VIEW, NON [id number] 21:05:00Reason for exam:->short of breathShould this be performed at the bedside?->YesFINAL REPORT AP chest HISTORY: Shortness of breath COMPARISON: 04/24/2015 IMPRESSION: Dialysis catheter and left chest port present. Cardiomegaly and thoracic aortic ectasia noted. Mild interstitial edema. Trace effusions. No pneumothorax. Signed : Jeffrey Jaime Verified Date/Time: 07/21/2017 21:05:18 Reading Location: [address] Consult Reading Room , ABDOMEN/KUB, 1 VIEW [id number] 20:56:00Reason for exam:->nausea, vomiting, abdominal painFINAL REPORT Abdomen, two images HISTORY: Nausea, vomiting, abdominal pain COMPARISON: None IMPRESSION:Stomach distended. Bowel gas pattern appears grossly nonobstructive. There is diffuse clonic stool retention. Status post vertebroplasty at multiple levels. Question subacute right hip fracture. Signed : Jeffrey Jaime Verified Date/Time: 07/21/2017 20:56:47 Reading Location: [facility] C013 Consult Reading Room TITIS B SURFACE [id number] 16:05:00* Test Item Value Reference Range Comments HEPATITIS B SURFACE ANTIGEN (2) (BEAKER) (test eltv=0828) Nonreactive Nonreactive For chronic HD patients, draw HBsAg with each admission then every 30 days.[id number] 15:48:00* Test Item Value Reference Range Comments LIPASE (BEAKER) (test wrmh=298) 119 U/L 8-78 POCT-GLUCOSE [id number] 12:03:00* Test Item Value Reference Range Comments POC-GLUCOSE METER (BEAKER) (test bpzi=0343) 94 mg/dL 70-110 TESTED AT [facility] [address] [facility] [address] BASIC METABOLIC [id number] 09:37:00* Test Item Value Reference Range Comments SODIUM (BEAKER) (test urqo=826) 138 meq/L 136-145 POTASSIUM (BEAKER) (test gslc=485) 4.7 meq/L 3.5-5.1 CHLORIDE (BEAKER) (test gfgc=004) 103 meq/L 98-107 CO2 (BEAKER) (test ptfq=770) 25 meq/L 22-29 BLOOD UREA NITROGEN (BEAKER) (test rcvg=271) 49 mg/dL 7-21 CREATININE (BEAKER) (test sjct=657) 6.28 mg/dL 0.57-1.25 GLUCOSE RANDOM (BEAKER) (test sgfy=208) 90 mg/dL 70-105 CALCIUM (BEAKER) (test elou=558) 9.5 mg/dL 8.4-10.2 EGFR (BEAKER) (test lkyb=0934) 11 mL/min/1.73 sq m ESTIMATED GFR IS NOT ACCURATE CREATININE CLEARANCE IN PREDICTING GLOMERULAR FILTRATION RATE. ESTIMATED GFR IS NOT APPLICABLE FOR DIALYSIS PATIENTS. VANCOMYCIN LEVEL, [id number] 09:22:00* Test Item Value Reference Range Comments VANCOMYCIN RANDOM (BEAKER) (test qjuw=652) 24.0 ug/mL Reference Range: No NormalsPOCT-GLUCOSE [id number] 07:22:00* Test Item Value Reference Range Comments POC-GLUCOSE METER (BEAKER) (test wgvw=9002) 102 mg/dL 70-110 TESTED AT [place] [id number] [facility] [address] HEPATIC FUNCTION [id number] 06:34:00* Test Item Value Reference Range Comments TOTAL PROTEIN (BEAKER) (test miue=520) 6.4 gm/dL 6.0-8.3 ALBUMIN (BEAKER) (test nnma=3914) 3.2 g/dL 3.5-5.0 BILIRUBIN TOTAL (BEAKER) (test rruw=436) 0.5 mg/dL 0.2-1.2 BILIRUBIN DIRECT (BEAKER) (test lwua=907) 0.2 mg/dL 0.1-0.5 ALKALINE PHOSPHATASE (BEAKER) (test ggqe=331) 132 U/L 40-150 AST (SGOT) (BEAKER) (test yypp=693) 12 U/L 5-34 ALT (SGPT) (BEAKER) (test rpwy=204) 7 U/L 6-55 POCT-GLUCOSE [id number] 22:06:00* Test Item Value Reference Range Comments POC-GLUCOSE METER (BEAKER) (test dmpp=0472) 130 mg/dL 70-110 TESTED AT [address] [address] POCT-GLUCOSE [id number] 17:23:00* Test Item Value Reference Range Comments POC-GLUCOSE METER (BEAKER) (test vlrj=2543) 118 mg/dL 70-110 TESTED AT [place] [id number] [facility] [address] POCT-GLUCOSE [id number] 11:44:00* Test Item Value Reference Range Comments POC-GLUCOSE METER (BEAKER) (test gjpd=9884) 167 mg/dL 70-110 TESTED AT [address] [address] POCT-GLUCOSE [id number] 08:15:00* Test Item Value Reference Range Comments POC-GLUCOSE METER (BEAKER) (test mvhi=9024) 124 mg/dL 70-110 TESTED AT [address] [address] POCT-GLUCOSE [id number] 21:46:00* Test Item Value Reference Range Comments POC-GLUCOSE METER (BEAKER) (test myqc=1831) 183 mg/dL 70-110 TESTED AT [address] [address] VANCOMYCIN LEVEL, [id number] 15:28:00* Test Item Value Reference Range Comments VANCOMYCIN RANDOM (BEAKER) (test paxc=190) 15.0 ug/mL Reference Range: No NormalsPlease call Dr. Schroeder at [phone] with results of vancomycin levelBASI METABOLIC [id number] 10:07:00* Test Item Value Reference Range Comments SODIUM (BEAKER) (test samk=961) 137 meq/L 136-145 POTASSIUM (BEAKER) (test igwj=222) 4.1 meq/L 3.5-5.1 CHLORIDE (BEAKER) (test fmjj=951) 102 meq/L 98-107 CO2 (BEAKER) (test frqz=332) 24 meq/L 22-29 BLOOD UREA NITROGEN (BEAKER) (test ywfq=130) 31 mg/dL 7-21 CREATININE (BEAKER) (test hizt=460) 4.08 mg/dL 0.57-1.25 GLUCOSE RANDOM (BEAKER) (test ltwz=806) 84 mg/dL 70-105 CALCIUM (BEAKER) (test dcdq=990) 10.5 mg/dL 8.4-10.2 EGFR (BEAKER) (test scgc=3082) 18 mL/min/1.73 sq m ESTIMATED GFR IS NOT ACCURATE CREATININE CLEARANCE IN PREDICTING GLOMERULAR FILTRATION RATE. ESTIMATED GFR IS NOT APPLICABLE FOR DIALYSIS PATIENTS. CBC W/PLT COUNT & AUTO [id number] 10:04:00* Test Item Value Reference Range Comments WHITE BLOOD CELL COUNT (BEAKER) (test iyxq=978) 6.5 K/ L 3.5-10.5 RED BLOOD CELL COUNT (BEAKER) (test srza=316) 3.07 M/ L 4.63-6.08 HEMOGLOBIN (BEAKER) (test vhli=925) 8.6 GM/DL 13.7-17.5 HEMATOCRIT (BEAKER) (test lhbx=132) 28.8 % 40.1-51.0 MEAN CORPUSCULAR VOLUME (BEAKER) (test xnjw=546) 93.8 fL 79.0-92.2 MEAN CORPUSCULAR HEMOGLOBIN (BEAKER) (test xqug=852) 28.0 pg 25.7-32.2 MEAN CORPUSCULAR HEMOGLOBIN CONC (BEAKER) (test wmcv=396) 29.9 GM/DL 32.3- 36.5 RED CELL DISTRIBUTION WIDTH (BEAKER) (test cgol=833) 16.5 % 11.6-14.4 PLATELET COUNT (BEAKER) (test ddyr=000) 230 K/CU MM 150-450 MEAN PLATELET VOLUME (BEAKER) (test rnpb=582) 9.5 fL 9.4-12.4 NUCLEATED RED BLOOD CELLS (BEAKER) (test mskn=232) 0 /100 WBC 0-0 NEUTROPHILS RELATIVE PERCENT (BEAKER) (test bygf=342) 75 % LYMPHOCYTES RELATIVE PERCENT (BEAKER) (test aizn=048) 4 % MONOCYTES RELATIVE PERCENT (BEAKER) (test ywri=609) 18 % EOSINOPHILS RELATIVE PERCENT (BEAKER) (test uzbp=490) 2 % BASOPHILS RELATIVE PERCENT (BEAKER) (test sgzq=941) 1 % NEUTROPHILS ABSOLUTE COUNT (BEAKER) (test syyv=771) 4.87 K/ L 1.78-5.38 LYMPHOCYTES ABSOLUTE COUNT (BEAKER) (test mmtk=430) 0.25 K/ L 1.32-3.57 MONOCYTES ABSOLUTE COUNT (BEAKER) (test cdhn=848) 1.15 K/ L 0.30-0.82 EOSINOPHILS ABSOLUTE COUNT (BEAKER) (test odfv=903) 0.12 K/ L 0.04-0.54 BASOPHILS ABSOLUTE COUNT (BEAKER) (test rtku=358) 0.03 K/ L 0.01-0.08 IMMATURE GRANULOCYTES-RELATIVE PERCENT (BEAKER) (test wusa=2714) 1 % 0-1 LACTIC ACID, VENOUS, WHOLE [id number] 09:49:00* Test Item Value Reference Range Comments LACTATE BLOOD VENOUS (2) (BEAKER) (test ddja=9627) 0.7 mmol/L 0.5-2.2 Effective 06/21/2015: Units/Reference Range ChangeNew: 0.5-2.2 mmol/L Previous: 5 -20 mg/dLPOCT-GLUCOSE [id number] 08:07:00* Test Item Value Reference Range Comments POC-GLUCOSE METER (BEAKER) (test npes=0559) 92 mg/dL 70-110 TESTED AT [facility] [address] [facility] [address] Glycosylated [id number] 08:07:00* Test Item Value Reference Range Comments HBA1c (test code=HBA1C) 4.3 % 4.8-5.9 Thyroid Stimulating Hormone (TSH)2016-12-20 07:13:00* Test Item Value Reference Range Comments TSH (test code=TSH) 2.52 mIU/mL 0.270-4.200 Free T4 (Free Thyroxine)2016-12-20 07:13:00* Test Item Value Reference Range Comments T4, Free (test code=FT4) 0.83 ng/dL 0.930-1.700 Basic Metabolic [id number] 06:56:00* Test Item Value Reference Range Comments Sodium (test code=NA) 141 mmol/L 135-145 Potassium (test code=K) 4.4 mmol/L 3.5-5.1 Chloride (test code=CL) 99 mmol/L 98-105 Carbon Dioxide (test code=CO2) 22 mmol/L 22-29 Glucose (test code=GLU) 84 mg/dL 70-115 Blood Urea Nitrogen (test code=BUN) 31 mg/dL 6-20 Creatinine (test code=CREAT) 6.7 mg/dL 0.7-1.2 Calcium (test code=CA) 9.1 mg/dL 8.3-10.5 BUN/Creatinine Ratio (test code=BCRATIO) 4.6 Anion Gap (test code=AGAP) 20 mmol/L 7-16 Estimated GFR (test code=GFR) 11 mL/min/1.73m2 eGFR (estimated Glomerular Filtration Rate) is an estimated value,calculated from the patient's serum creatinine using the MDRD equation.It is NOT the patient's actual GFR. The eGFR provides a more clinicallyuseful measure of kidney disease than serum creatinine alone.This calculation takes sex and race into account, if the informationis provided. If the race is not provided, and the patient isAfrican- [place]ian, multiply by 1.212. If sex is not provided, and thepatient is female, multiply by 0.742. Results for patients <18 years ofage have not been validated by the MDRD study and should be interpretedwith caution.eGFR Result Interpretation:eGFR > or=60 is in the Normal RangeeGFR < 60 may mean kidney diseaseeGFR < 15 may mean kidney failureRanges recommended by the National Kidney Foundation,http://nkdep.nih.gov Lipid [id number] 06:56:00* Test Item Value Reference Range Comments Cholesterol (test code=CHOL) 151 mg/dL 0-200 Triglycerides (test code=TRIG) 81 mg/dL 9-200 HDL (test code=HDL) 61 mg/dL 40-60 Chol/HDL (test code=CHOLPHDL) 2.5 Ratio 0.0-5.0 LDL, Calculated (test code=LDLC) 74 0-130 (NOTE)RISK OF HEART DISEASEPublished by [place] Heart AssociationAnalyte Optimal Boderline Increased RiskCHOL <200 200-239 >240TRIG <150 150-199 >200HDL Male: >60 <40HDL Female: >60 <50LDL <100 130- 159 >160LDL NEAR OPTIMAL IS 100-129 VLDL (test code=VLDL) 16 mg/dL 5-40 LDL/HDL (test code=LDLPHDL) 1 CBC with [id number] 06:48:00* Test Item Value Reference Range Comments WBC (test code=WBC) 4.3 K/cumm 4.4-10.5 RBC (test code=RBC) 3.37 M/cumm 4.10-5.70 Hemoglobin (test code=HGB) 10.1 gm/dL 13.4-17.4 Hematocrit (test code=HCT) 32.6 % 38.7-52.0 MCV (test code=MCV) 96.7 fL 80-100 MCH (test code=MCH) 29.9 pg 27.0-32.5 MCHC (test code=MCHC) 30.9 g/dL 32.0-37.5 RDW (test code=RDW) 16.6 % 11.5-14.5 Platelet Count (test code=PLTCT) 209 K/cumm 140-440 MPV (test code=MPV) 8.4 fL Diff Method (test code=DIFFM) Auto Neutrophil (test code=NEUT) 77.2 % 36-70 Lymphocyte (test code=LYMPH) 9.9 % 12-44 Monocyte (test code=MONO) 12.8 % 0-11 Eosinophil (test code=EOS) 0.1 % 0-7 Basophil (test code=BASO) 0.1 % 0-2 Neutro Abs (test code=ANEUT) 3.3 K/cumm 1.6-7.4 Lymph Abs (test code=ALYMPH) 0.4 K/cumm 0.5-4.6 [place] Abs (test code=AMONO) 0.6 K/cumm 0.0-1.2 Eos Abs (test code=AEOS) 0.00 K/cumm 0.00-0.74 Baso Abs (test code=ABASO) 0.0 K/cumm 0.00-0.21 Hypochromic (test code=HYPO) Slight [id number] 06:46:00* Test Item Value Reference Range Comments NT ProBnp (test code=PBNP) >52155 pg/mL 0-124 POC Glucose, [id number] 05:46:00* Test Item Value Reference Range Comments POC Glucose (test code=POCGLUC) 76 mg/dL 70-115 If you consider your patient critically ill, the [facility] Accu-Chek InformII metershould not be used for Glucose determinations.Draw a venous Glucose and send to the Main Lab for Analysis. [id number]& PELVIS W/O [id number] 00:11:34CT ABD & PELVIS W/O CONTRASTLocation:[facility] services provided 12/20/2016 12:11 AMIndication: Abd painComparison:CT of the thorax performed earlier the same day, CT abdomenand pelvis dated 01/02/2015.Technique: Axial CT images were acquired through the abdomen and pelviswithout contrast. All CT scans at this facility use dose modulation,iterative reconstruction, and/or weight-based dosing when appropriate toreduce radiation dose to as low as reasonably possible.Findings: Lower thorax: Refer to dedicated CT of the thoraxHepatobiliary: The liver is normal in size and density. No intrahepaticbiliary duct dilatation is seen. The gallbladder is normal.Spleen, pancreas and adrenal glands: NormalUrogenital : Severe right renal atrophy with multiple circumscribed fociof hypodensity seen within the renal parenchyma. Lack of intravenouscontrast limits evaluation. These may represent renal cysts. The leftkidney is congenitally or surgically absent. The prostate is normal.Gastrointestinal: Left lateral abdominal wall hernia containing loops ofsmall bowel with no evidence of bowel incarceration or strangulation. Noevidence of bowel obstruction, free air or free fluid. The appendix isnormal.Lymph nodes in retroperitoneum: Calcified atheromatous plaquing is seenwithin the arteries with no evidence of aneurysm. No adenopathy orretroperitoneal mass is seen.Bones and soft tissues: Status post vertebroplasty at L1-L3 withextensive deformity of the L1-L3 vertebral bodies. No evidence ofretropulsion or bony spinal canal stenosis is seen. These findings arenew when compared to 2014. A lytic lesion is present within the rightiliac bone with extensive soft tissue prominent extending posteriorlaterally into the gluteal musculature.Impression: 1. No evidence of bowel obstruction, free air or free fluid.2. Lytic lesion with soft tissue mass involving the right iliac bone.3. Additional nonemergent findings as detailed above.CT CHEST ANGIO W/WO [id number] 20:22:50Location code: [id number]: Following intravenous administration of 70 cc of contrast,without adverse reaction, the chest was scanned from bases to apices andreformatted to 1.5 mm thin axial images. Coronal images were alsoobtained and reviewed.Dose lowering techniques with automatic exposure control were utilized.INDICATIONS: DyspneaFINDINGS: Mild prominence of the thyroid gland noted.There is a heterogeneous soft tissue mass emanating from the superioraspect of the sternum measuring 6.4 x 5.8 x 4.5 cm, extending into thesuperior pericardial space. There is mild remodeling of the distal endsof the clavicles. There is enlargement of the right first ribanteriorly, with cortical disruption.Heart is mildly enlarged. No pericardial effusion. Measurements andappearance of the thoracic aorta are normal.Measurements of the pulmonary trunk, right and left pulmonary arteriesare normal. Study is limited by suboptimal timing of contrast bolusadministration. No central or segmental pulmonary embolus seen.Evaluation of the subsegmental tree is limited.Lymph nodes: Pretracheal lymphadenopathy measures 2.2 x 2 cm.Lungs: Tracheobronchial tree is patent without bronchiectasis orendobronchial lesions. 2 cm left lower lobe nodule noted. 1.1 cm rightlower lobe nodule (image 136). 14 mm right upper lobe nodule (image 84)noted. Pleural-based left upper lobe nodule measures 12 mm (image 62) and 8 mm subpleural nodule noted. 9 mm left lower lobe nodule in thesuperior segment (image 80 noted. Pleural-based nodularity in the rightmiddle lobe measures 2.4 x 1.8 cm. This could additionally representatelectasis.Evaluation of the upper abdomen demonstrates no definite abnormality.Degenerative changes in the bones noted.CONCLUSION:1. Limited study demonstrating no central or segmental embolus.Evaluation of the subsegmental tree is limited.2. Heterogeneous mass emanating from the superior aspect of the sternumappears suspicious for neoplasm or metastasis. Additional involvement ofthe right anterior first rib noted.3. Multiple bilateral pulmonary nodules measuring up to 2 cm appearssuspicious for metastatic disease.4. Pretracheal lymphadenopathy.5. Moderate thyromegalyCK [id number] 19:16:00* Test Item Value Reference Range Comments CK (test code=CK) 84 U/L 39-308 Troponin [id number] 19:16:00* Test Item Value Reference Range Comments Troponin T (test code=SHAWN) 0.112 ng/mL 0.000-0.090 [id number] 19:16:00* Test Item Value Reference Range Comments NT ProBnp (test code=PBNP) 63069 pg/mL 0-124 Comprehensive Metabolic [id number] 19:16:00* Test Item Value Reference Range Comments Sodium (test code=NA) 136 mmol/L 135-145 Potassium (test code=K) 4.2 mmol/L 3.5-5.1 Chloride (test code=CL) 96 mmol/L 98-105 Carbon Dioxide (test code=CO2) 27 mmol/L 22-29 Glucose (test code=GLU) 93 mg/dL 70-115 Blood Urea Nitrogen (test code=BUN) 26 mg/dL 6-20 Creatinine (test code=CREAT) 6.1 mg/dL 0.7-1.2 Calcium (test code=CA) 9.2 mg/dL 8.3-10.5 Prot Total (test code=TP) 6.3 g/dL 6.4-8.3 Albumin (test code=ALB) 3.7 g/dL 3.5-5.2 A/G Ratio (test code=AGRATIO) 1.4 Ratio Globulin (test code=GLOB) 2.6 2.9-3.1 Bili Total (test code=TBIL) 0.2 mg/dL 0.1-0.9 Alk Phos (test code=APHOS) 147 U/L 40-129 AST (test code=AST) 8 U/L 1-40 ALT (test code=ALT) 5 U/L 1-41 BUN/Creatinine Ratio (test code=BCRATIO) 4.3 Anion Gap (test code=AGAP) 13 mmol/L 7-16 Estimated GFR (test code=GFR) 12 mL/min/1.73m2 eGFR (estimated Glomerular Filtration Rate) is an estimated value,calculated from the patient's serum creatinine using the MDRD equation.It is NOT the patient's actual GFR. The eGFR provides a more clinicallyuseful measure of kidney disease than serum creatinine alone.This calculation takes sex and race into account, if the informationis provided. If the race is not provided, and the patient isAfrican- [place]ian, multiply by 1.212. If sex is not provided, and thepatient is female, multiply by 0.742. Results for patients <18 years ofage have not been validated by the MDRD study and should be interpretedwith caution.eGFR Result Interpretation:eGFR > or=60 is in the Normal RangeeGFR < 60 may mean kidney diseaseeGFR < 15 may mean kidney failureRanges recommended by the National Kidney Foundation,http://nkdep.nih.gov CBC with [id number] 19:15:00* Test Item Value Reference Range Comments WBC (test code=WBC) 3.9 K/cumm 4.4-10.5 RBC (test code=RBC) 3.39 M/cumm 4.10-5.70 Hemoglobin (test code=HGB) 10.0 gm/dL 13.4-17.4 Hematocrit (test code=HCT) 32.6 % 38.7-52.0 MCV (test code=MCV) 96.3 fL 80-100 MCH (test code=MCH) 29.5 pg 27.0-32.5 MCHC (test code=MCHC) 30.7 g/dL 32.0-37.5 RDW (test code=RDW) 16.7 % 11.5-14.5 Platelet Count (test code=PLTCT) 182 K/cumm 140-440 MPV (test code=MPV) 7.6 fL Diff Method (test code=DIFFM) Auto Neutrophil (test code=NEUT) 77.5 % 36-70 Lymphocyte (test code=LYMPH) 9.4 % 12-44 Monocyte (test code=MONO) 12.9 % 0-11 Eosinophil (test code=EOS) 0.1 % 0-7 Basophil (test code=BASO) 0.2 % 0-2 Neutro Abs (test code=ANEUT) 3.0 K/cumm 1.6-7.4 Lymph Abs (test code=ALYMPH) 0.4 K/cumm 0.5-4.6 [place] Abs (test code=AMONO) 0.5 K/cumm 0.0-1.2 Eos Abs (test code=AEOS) 0.00 K/cumm 0.00-0.74 Baso Abs (test code=ABASO) 0.0 K/cumm 0.00-0.21 Hypochromic (test code=HYPO) Slight XR CHEST 1 [id number] 18:12:24Location code: R 15HISTORY: DyspneaCOMPARISON : None.FINDINGS: Right left IJ catheters are present in satisfactory position.Cardiac silhouette is enlarged with a left ventricular configuration.There is diffuse increased interstitial and patchy alveolar airspacedisease throughout the lungs for which clinical correlation is suggestedto evaluate acute versus chronic.No evidence of consolidation, pneumothorax or significant effusion ispresent.Osseous structures are unchanged.IMPRESSION: 1. Cardiomegaly.2. Diffuse interstitial and patchy alveolar airspace disease.CT MAXILLOFACIAL WO [id number] 00:36:18AFTER HOURS SERVICE ON: 10/20/2016 12:[address] Without contrastLocation Code [id number]: PainTechnique: Axial and reconstructed coronal and sagittal scans wereperformed on a helical scanner pre IV contrast only. One or more of the following dose reduction techniques were used:Automated exposure control, adjustment of the mA and/or kV according topatient size, and/or utilization of iterative reconstruction technique.Findings:Nasal bone, nasal septum and hard palate are intact.Soft tissue laceration is noted in the right perimandibular soft tissuesand soft tissue swelling. Maxilla, zygomatic arches and visualizedportions of the mandible are unremarkable. There is right periorbital soft tissue swelling there is mucosalthickening and air-fluid levels in the right maxillary sinus no definiteorbital fracture orFracture is seen. However, the fluid is also hyperdense reason concernfor hemorrhagic fluid. Orbital rim is unremarkable. Globes appearsymmetric. There is no blowout fracture. Zygomaticofrontal sutures areintact. Lamina papyracea are intact. Impression: 1. Right periorbital soft tissue swelling without definite orbitalfracture.2. Mucosal thickening and air-fluid level in the right maxillary sinus.Some of the fluid is hyperdense indicating probable hemorrhagic fluid orfungal infection. Regarding hemorrhagic fluid, an occult maxillaryfracture is not excluded. There is certainly no displaced fracture.3. Right perimandibular soft tissue laceration.CT CERVICAL SPINE LTD W/O [id number] 00:27:07AFTER HOURS SERVICE ON: 10/20/2016 12:27 AMCT of the Cervical Spine Without ContrastLocation Code [id number]: PainTechnique: Axial and reconstructed coronal and sagittal scans wereobtained on a helical scanner pre IV contrast only. One or more of the following dose reduction techniques were used:Automated exposure control, adjustment of the mA and/or kV according topatient size, and/or utilization of iterative reconstruction technique.Findings:Craniocervical junction is intact. Atlantoaxial joint is unremarkable.C1 ring is normal. Dens is intact. Transverse processes, pedicles andlamina are intact. No compression fracture or pathologic lesions. Thereis moderate cervical spondylosis with multilevel endplate spurs and discspace narrowing, pronounced at C5-C6. There is no significant centralcanal stenosis. Multilevel [id number]-mxlmrxdd foraminal stenoses are seendue to uncovertebral hypertrophy.In the upper chest, there is a saccular-like peripherally calcifiedlesion measuring 5.5 cm which was not definitely visualized on the01/02/[address] This only partially visualized.Impression:1. No acute cervical spine findings. No fracture. Spondylosis.2. Partially visualized saccular peripherally calcified structure inthe upper anterior chest at the level of the clavicles. Recommendfurther evaluation with CT. CT HEAD OR BRAIN WO [id number] 00:19:53AFTER HOURS SERVICE ON: 10/20/2016 12:19 AMCT Scan of the Brain Without ContrastLocation Code [id number]: PainTechnique: Scans were performed on a helical scanner pre IV contrastonly. The study is limited secondary to lack of intravenous contrast, particularly for evaluation of masses. CT images were performed uiwxst09 hours at arrival to the facility. One or more of the following dose reduction techniques were used:Automated exposure control, adjustment of the mA and/or kV according topatient size, and/or utilization of iterative reconstruction technique.Findings: There is no hydrocephalus. Basal cisterns are patent. There is nointracranial hyperdense hemorrhage. There is no midline shift or masseffect. No effacement of the todd-white matter junction to indicateacute infarction. There are mild chronic ischemic white matter changes. Impression:No acute intracranial CT findings.Senescent changes.B-TYPE NATRIURETIC FACTOR (BNP) 2016-07-27 11:51:00* Test Item Value Reference Range Comments B-TYPE NATRIURETIC PEPTIDE (BEAKER) (test trtz=766) 1290 pg/mL 0-100 BASIC METABOLIC [id number] 10:18:00* Test Item Value Reference Range Comments SODIUM (BEAKER) (test vvfn=562) 139 meq/L 136-145 POTASSIUM (BEAKER) (test ytug=735) 4.8 meq/L 3.5-5.1 CHLORIDE (BEAKER) (test wvfb=353) 104 meq/L 98-107 CO2 (BEAKER) (test xpbs=538) 22 meq/L 22-29 BLOOD UREA NITROGEN (BEAKER) (test izui=319) 24 mg/dL 7-21 CREATININE (BEAKER) (test wcpf=045) 6.74 mg/dL 0.57-1.25 GLUCOSE RANDOM (BEAKER) (test mqek=418) 86 mg/dL 70-105 CALCIUM (BEAKER) (test tfjg=211) 9.9 mg/dL 8.4-10.2 EGFR (BEAKER) (test qzbt=6100) 10 mL/min/1.73 sq m ESTIMATED GFR IS NOT ACCURATE CREATININE CLEARANCE IN PREDICTING GLOMERULAR FILTRATION RATE. ESTIMATED GFR IS NOT APPLICABLE FOR DIALYSIS PATIENTS. HEPATIC FUNCTION [id number] 10:18:00* Test Item Value Reference Range Comments TOTAL PROTEIN (BEAKER) (test masv=835) 7.0 gm/dL 6.0-8.3 ALBUMIN (BEAKER) (test oixt=9861) 3.5 g/dL 3.5-5.0 BILIRUBIN TOTAL (BEAKER) (test hsiv=452) 0.5 mg/dL 0.2-1.2 BILIRUBIN DIRECT (BEAKER) (test infx=026) 0.2 mg/dL 0.1-0.5 ALKALINE PHOSPHATASE (BEAKER) (test sqyo=414) 137 U/L 40-150 AST (SGOT) (BEAKER) (test mlcl=971) 10 U/L 5-34 ALT (SGPT) (BEAKER) (test jmks=087) < U/L 6-55 [id number] 10:18:00* Test Item Value Reference Range Comments LIPASE (BEAKER) (test lldn=800) 46 U/L 8-78 CBC W/PLT COUNT & AUTO [id number] 09:56:00* Test Item Value Reference Range Comments WHITE BLOOD CELL COUNT (BEAKER) (test xvmg=126) 6.6 K/ L 4.0-10.0 RED BLOOD CELL COUNT (BEAKER) (test ycmk=625) 3.48 M/ L 4.20-5.80 HEMOGLOBIN (BEAKER) (test kllf=537) 10.4 GM/DL 13.0-16.8 HEMATOCRIT (BEAKER) (test qfxi=842) 33.1 % 40.0-50.0 MEAN CORPUSCULAR VOLUME (BEAKER) (test txzd=664) 95.2 fL 82.0-98.0 MEAN CORPUSCULAR HEMOGLOBIN (BEAKER) (test vfdl=132) 29.7 pg 27.0-33.0 MEAN CORPUSCULAR HEMOGLOBIN CONC (BEAKER) (test ixuc=920) 31.3 GM/DL 32.0- 36.0 RED CELL DISTRIBUTION WIDTH (BEAKER) (test wwzy=579) 13.4 % 10.3-14.2 PLATELET COUNT (BEAKER) (test sxiz=573) 230 K/CU MM 150-430 MEAN PLATELET VOLUME (BEAKER) (test ppai=801) 7.2 fL 6.5-10.5 NUCLEATED RED BLOOD CELLS (BEAKER) (test mnxm=843) 0 /100 WBC 0-0 NEUTROPHILS RELATIVE PERCENT (BEAKER) (test bxhy=897) 75 % LYMPHOCYTES RELATIVE PERCENT (BEAKER) (test yfio=874) 5 % MONOCYTES RELATIVE PERCENT (BEAKER) (test fvyp=772) 17 % EOSINOPHILS RELATIVE PERCENT (BEAKER) (test oxpz=839) 3 % BASOPHILS RELATIVE PERCENT (BEAKER) (test nsav=020) 0 % NEUTROPHILS ABSOLUTE COUNT (BEAKER) (test gmdo=224) 4.95 K/ L 1.80-8.00 LYMPHOCYTES ABSOLUTE COUNT (BEAKER) (test wukq=889) 0.32 K/ L 1.48-4.50 MONOCYTES ABSOLUTE COUNT (BEAKER) (test ldzs=700) 1.12 K/ L 0.00-1.30 EOSINOPHILS ABSOLUTE COUNT (BEAKER) (test rtgb=563) 0.18 K/ L 0.00-0.50 BASOPHILS ABSOLUTE COUNT (BEAKER) (test gdim=774) 0.01 K/ L 0.00-0.20
== END 2017-10-23 12:05 | DRG 291 ==
LOC: ER 17:01 → ERHOLD 21:31 → MED/SURG 22:19
PROVIDERS: ADMIT Internal Medicine; ATTEND Internal Medicine
PROC: 5A1D70Z Performance of Urinary Filtration, Intermittent, Less than 6 Hours Per Day (ICD-10-PCS; principal; 2017-10-18)
PROC: 5A1D70Z Performance of Urinary Filtration, Intermittent, Less than 6 Hours Per Day (ICD-10-PCS; 2017-10-20)
PROC: 5A1D70Z Performance of Urinary Filtration, Intermittent, Less than 6 Hours Per Day (ICD-10-PCS; 2017-10-22)
DX: I13.2 Hypertensive heart and chronic kidney disease with heart failure and with stage 5 chronic kidney disease, or end stage renal disease (principal); N18.6 End stage renal disease; I50.33 Acute on chronic diastolic (congestive) heart failure; C64.9 Malignant neoplasm of unspecified kidney, except renal pelvis; C78.00 Secondary malignant neoplasm of unspecified lung; C79.51 Secondary malignant neoplasm of bone; J44.1 Chronic obstructive pulmonary disease with (acute) exacerbation; F14.20 Cocaine dependence, uncomplicated; F11.20 Opioid dependence, uncomplicated; J91.0 Malignant pleural effusion; N25.81 Secondary hyperparathyroidism of renal origin; E11.22 Type 2 diabetes mellitus with diabetic chronic kidney disease; E11.65 Type 2 diabetes mellitus with hyperglycemia; Z99.2 Dependence on renal dialysis; Z79.4 Long term (current) use of insulin; D63.1 Anemia in chronic kidney disease; E83.51 Hypocalcemia; F41.9 Anxiety disorder, unspecified; F32.9 Major depressive disorder, single episode, unspecified; G47.33 Obstructive sleep apnea (adult) (pediatric); G89.29 Other chronic pain; M54.9 Dorsalgia, unspecified; F17.210 Nicotine dependence, cigarettes, uncomplicated; E87.5 Hyperkalemia; R09.3 Abnormal sputum; Z22.322 Carrier or suspected carrier of Methicillin resistant Staphylococcus aureus; R59.1 Generalized enlarged lymph nodes
CPT/HCPCS: 36415; 36430; 36600; 71045; 71046; 71250; 80048; 80053; 82270; 82330; 82550; 82553; 82607; 82728; 82746; 82805; 82948; 83540; 83735; 83880; 84100; 84443; 84466; 84484; 85025; 85610; 85730; 86704; 86705; 86707; 86850; 86900; 86920; 87070; 87186; 87205; 87340; 90962; 93005; 93306; 94640; 96376; 97139; 99284; J0696; J1642; J1940; J2150; J2270; J2405; J2920; J7030; P9016; Q4081